=== PATIENT | female | born 1945 | race Caucasian/White ===

== ENCOUNTER 2019-06-09 14:58 | Observation (INO) ==
--- NOTE | 2019-06-09 15:17 | ERNOTE ---
GI Bleeding/Rectal Pain ER Presenting Symptoms: rectal bleeding Time Seen by Provider: 06/09/19 14:58 Source: residential records Exam Limitations: clinical condition Immunizations: IMMUNIZATION HX Immunizations Up to Date Yes Allergies/Adverse Reactions: Allergies No Known Allergies Allergy (Verified 06/09/19 15:01) Home Medications: HOME MEDICATIONS albuterol sulfate 90 mcg/actuation aerosol inhaler 2 inh IH Q4H PRN 10/31/18 [Last Taken Unknown] ascorbic acid (vitamin C) 500 mg tablet 500 mg FEEDING TUBE BID 05/13/19 [Last Taken Unknown] aspirin 81 mg tablet,delayed release 81 mg FEEDING TUBE DAILY 05/13/19 [Last Taken Unknown] atorvastatin 40 mg tablet 40 mg FEEDING TUBE DAILY 05/13/19 [Last Taken Unknown] carvedilol 3.125 mg tablet 3.125 mg FEEDING TUBE BID 05/13/19 [Last Taken Unknown] clindamycin HCl 150 mg capsule 600 mg FEEDING TUBE BID cap 05/13/19 [Last Taken Unknown] diltiazem HCl 240 mg capsule,extended release 24 hr 240 mg PO DAILY 05/13/19 [Last Taken Unknown] folic acid 1 mg tablet 1 mg FEEDING TUBE DAILY 05/13/19 [Last Taken Unknown] lactose-reduced food with fibr 0.06 gram-1.2 kcal/mL oral liquid 0.06 ea FEEDING TUBE DAILY 05/13/19 [Last Taken Unknown] levothyroxine 25 mcg tablet 25 mcg FEEDING TUBE DAILY 05/13/19 [Last Taken Unknown] morphine 15 mg immediate release tablet 15 mg PO Q8H PRN 05/13/19 [Last Taken Unknown] nystatin 100,000 unit/gram topical cream 1 applic TP BID 05/13/19 [Last Taken Unknown] omeprazole magnesium 2.5 mg oral suspension,delayed release 10 mg PO DAILY 05/13/19 [Last Taken Unknown] senna-docusate sodium 2 tab PO BID PRN tab 05/13/19 [Last Taken Unknown] warfarin 3 mg tablet 3 mg FEEDING TUBE DAILY tab 05/13/19 [Last Taken Unknown] Narrative: Patient resides at the care center and is not communicating due to multiple strokes. 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 Onset Date: ~05/14/19 Dry eye syndrome of both lacrimal glands Onset Date: ~04/18/19 History of transient ischemic attack and cerebral infarction Onset Date: ~11/01/18 Hypertension, essential Onset Date: ~11/01/18 Hypertensive retinopathy of both eyes Onset Date: ~04/18/19 Hypothyroidism Onset Date: ~11/01/18 Morbid (severe) obesity due to excess calories Onset Date: ~11/19/18 Muscle wasting and atrophy, not elsewhere classified, multiple sites Onset Date: ~04/18/19 Non-pressure chronic ulcer of right lower leg with fat layer exposed Onset Date: Unknown Oral phase dysphagia Onset Date: ~05/14/19 Peripheral venous insufficiency Onset Date: ~11/01/18 Pulmonary embolism Onset Date: ~11/01/18 Pure hypercholesterolemia Onset Date: ~11/01/18 Sepsis Onset Date: Unknown 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) Onset Date: 04/18/19 Stasis ulcer of lower extremity Onset Date: Unknown Unspecified asthma, uncomplicated Onset Date: ~11/01/18 Weakness Onset Date: ~05/14/19 Anemia Onset Date: Unknown Asthma Onset Date: Unknown Atrial fibrillation and flutter Onset Date: Unknown CVA (cerebral vascular accident) Onset Date: Unknown HTN (hypertension) Onset Date: Unknown History of pulmonary embolus (PE) Onset Date: Unknown Hypothyroidism (acquired) Onset Date: Unknown Lymphedema of leg Onset Date: Unknown Morbid obesity with BMI of 50.0-59.9, adult Onset Date: Unknown Rheumatoid arthritis Onset Date: Unknown Venous insufficiency (chronic) (peripheral) Onset Date: Unknown BPPV (benign paroxysmal positional vertigo) Onset Date: Unknown Cellulitis Onset Date: Unknown right leg Dysuria Onset Date: Unknown H/O hyperkalemia Onset Date: Unknown History of CVA (cerebrovascular accident) Onset Date: Unknown Hypercholesteremia Onset Date: Unknown Surgical History: Surgical History (Last Reviewed 06/09/19 @ 20:06 by Kelly Dong MD) Gastrostomy status Onset Date: ~04/18/19 History of incision and drainage Onset Date: ~09/17/18 right thigh mass Family History: Family History (Last Reviewed 06/09/19 @ 17:48 by Aida Quiroga, RN) Mother Coronary artery disease Father Diabetes Sister Cancer breast Coronary artery disease Social History: (Last Reviewed 06/09/19 @ 17:48 by Aida Quiroga, RN) Social History: current occupational status: retired Service: No Tobacco: Smoking Status: Former smoker Alcohol: alcohol intake: never Substance Use: substance use type: does not use Dietary Habits: caffeine: Yes Physical Exam - Physical Exam General Appearance: Present: wd/wn, alert, no apparent distress, obese Head Exam: Present: normal inspection Respiratory: Present: no respiratory distress, no accessory muscle use, lungs clear Cardiovascular/Chest: Present: regular rate, rhythm, no murmur, normal peripheral pulses Gastrointestinal/Abdominal: Present: normal bowel sounds, nontender, nondistended, soft Rectal Exam: Present: nontender, normal rectal tone, other - miller stool Back Exam: Present: other - lower back beginning decubitus ulcers Extremity Exam: Present: no edema Neurological Exam: Present: alert, oriented, normal mood/affect Skin Exam: Present: normal color, warm/dry Progress - Results and Orders Patient's Lab Results:: I have reviewed the patient's lab results. - Vital Signs Patient's Vital Signs:: I have reviewed the patient's vital signs. Vital Signs: Vital Signs 06/09/19 14:58 Temperature 36.5 C Pulse Rate 65 Respiratory Rate 19 - Progress/Reassessment Chief Complaint: GI Bleed Progress Note-Subjective: 06/09/19 16:23 discussed with family, vitals and Hb stable recommended admission for observation, family agreed reports that patient was community dwelling until just before , was in [facility] for about a month for CVA and encephalitis, discharged to care center end of 06/09/19 16:[address] Hardy, will see patient, admit to medicine 06/09/19 16:[address] Del Rosario, okay to admit for observation Departure Clinical Impression: Lower GI bleed - Departure Disposition: Still a patient Condition: Stable
[2019-06-09 15:30] LABS: Hematocrit 41.5 % (37.0-47.0); Hemoglobin 13.3 gm/dL (12.5-16.0); Mean Cell Volume 102.7 fl (78-100); Mean Corpuscular Hemoglobin 32.9 pg (27-31); Mean Platelet Volume 13.5 fl (8-12.5); Neutrophil # 2.6 K/mm3 (1.3-6.0); Platelet Count 190 K/mm3 (150-450); Red Blood Count 4.04 M/mm3 (4.2-5.4); Red Cell Distribution Width 14.7 % (11.5-14.0); White Blood Count 7.7 K/mm3 (4.0-10.5)
[2019-06-09 15:47] LABS: Anion Gap 11.6 mmol/L (6.8-13.8); BUN/Creatinine Ratio 28.9 (9.0-21.6); Bilirubin, Total 0.3 mg/dL (0.0-1.1); Ca. Corrected For Albumin 10.3 mg/dL (8.4-10.2); Carbon Dioxide 28.2 mmol/L (24-32.6); Potassium 4.8 mmol/L (3.4-4.6); Total Protein 8.8 gm/dL (6.2-8.2)
[2019-06-09 15:48] LABS: INR 3.94 INR (0.92-1.08); Partial Thrombolplastin Time 40.1 Seconds (24-32)
[2019-06-09 17:29] LABS: Hematocrit 39.7 % (37.0-47.0); Hemoglobin 12.9 gm/dL (12.5-16.0)
--- NOTE | 2019-06-09 18:25 | CONS ---
HPI - General Date of Service: 06/09/19 Source: RN/MD, RN notes reviewed, old records Exam Limitations: clinical condition - History of Present Illness Timing/Duration: 24 hours - [facility] staff noted yesterday Associated Symptoms: other - patient is unable to converse meaningfully Allergies/Adverse Reactions: Allergies No Known Allergies Allergy (Verified 06/09/19 15:01) Home Medications: Home Medications Medication Instructions Recorded Last Taken albuterol sulfate 90 mcg/actuation 2 inh IH Q4H PRN 10/31/18 Unknown aerosol inhaler ascorbic acid (vitamin C) 500 mg 500 mg FEEDING TUBE BID 05/13/19 Unknown tablet aspirin 81 mg tablet,delayed 81 mg FEEDING TUBE DAILY 05/13/19 Unknown release atorvastatin 40 mg tablet 40 mg FEEDING TUBE DAILY 05/13/19 Unknown carvedilol 3.125 mg tablet 3.125 mg FEEDING TUBE BID 05/13/19 Unknown diltiazem HCl 240 mg 240 mg PO DAILY 05/13/19 Unknown capsule,extended release 24 hr folic acid 1 mg tablet 1 mg FEEDING TUBE DAILY 05/13/19 Unknown lactose-reduced food with fibr 0.06 ea FEEDING TUBE DAILY 05/13/19 Unknown 0.06 gram-1.2 kcal/mL oral liquid levothyroxine 25 mcg tablet 25 mcg FEEDING TUBE DAILY 05/13/19 Unknown morphine 15 mg immediate release 15 mg PO Q8H PRN 05/13/19 Unknown tablet nystatin 100,000 unit/gram topical 1 applic TP BID 05/13/19 Unknown cream omeprazole magnesium 2.5 mg oral 10 mg PO DAILY 05/13/19 Unknown suspension,delayed release senna-docusate sodium 2 tab PO BID PRN tab 05/13/19 Unknown warfarin 3 mg tablet 3 mg FEEDING TUBE DAILY tab 05/13/19 Unknown Acetaminophen [Tylenol] 325 mg PEG QID PRN 06/09/19 Unknown Review of Systems - Review of Systems Narrative: Cannot obtain meaningful ROS from the patient Physical Examination - Exam Vital Signs: Vital Signs - Last Taken Temp 36.6 C 06/09/19 16:53 Pulse 62 06/09/19 16:53 Resp 12 06/09/19 16:53 BP 144/57 06/09/19 16:53 Pulse Ox 94 06/09/19 16:53 O2 Oxygen Delivery Method Room Air Comprehensive Narative: 06/09/19 18:26 Eyes are closed. Opens eyes when hand is touched. Responses are not coherent Constitutional: Present: Somnolent, Morbidly obese. Absent: Oriented x3 ENT Exam: Present: normal ENT inspection Respiratory: Present: no respiratory distress Cardiovascular/Chest: Present: regular rate, rhythm Abdomen: Present: Normal bowel sounds, soft, obese. Absent: guarding, rigidity, rebound tenderness /Rectal: Present: Other - maroon stool noted by ERP---normal tone, no masses Extremity: Present: other - no spontaneous movement Skin Exam: Present: warm/dry Neurologic: Present: disoriented x 3 Appearance: Present: other - eyes closed unless stimulated, opens briefly and attempts speech Eye contact: Present: other - makes eye contact Thoughts: Present: other - cannot assess - Results and Findings: Lab/Microbiology results last 24 hrs: Abnormal/Pending Laboratory Last 24 HRS 06/09/19 06/09/19 06/09/19 15:15 15:15 15:15 RBC 4.04 L MCV 102.7 H MCH 32.9 H RDW 14.7 H MPV 13.5 H Neutrophils % 34.0 L Lymphocytes % 52.7 H Eosinophils % 5.6 H Lymphocytes # 4.06 H PT 37.0 H INR (Anticoag Therapy) 3.94 H PTT ([place]) 40.1 H Potassium 4.8 H BUN 26 H BUN/Creatinine Ratio 28.9 H Random Glucose 192 H Calcium Adj for Albumin 10.3 H AST 56 H Total Protein 8.8 H Albumin 2.0 L Stool Occult Blood 06/09/19 13:45 RBC MCV MCH RDW MPV Neutrophils % Lymphocytes % Eosinophils % Lymphocytes # PT INR (Anticoag Therapy) PTT (Jay Jay) Potassium BUN BUN/Creatinine Ratio Random Glucose Calcium Adj for Albumin AST Total Protein Albumin Stool Occult Blood Positive H - Assessments/Findings (1) Lower GI bleed Diagnosis(s): Hgb 13.3 and 12.9 VS normal Her INR is elevated, plt's normal Most likely source is lower GI, perhaps diverticular bleeding. Do not have prior imaging to know if she has diverticular disease and prior colonoscopy status is unknown. Given her baseline status, would certainly treat conservatively--serial Hgb/Hct, allow INR to reduce--prior to even considering endoscopy, as she is not a candidate for any surgical intervention.. The stomach contents could be checked for gross blood by aspirating PEG tube when accessed next Discussed with Dr Del Rosario. ADDENDUM: 06/10/19 8:25AM Her Hgb has stayed stable Laboratory Tests 06/09/19 06/09/19 06/09/19 15:15 17:24 22:00 Hgb 13.3 12.9 12.3 L 06/10/19 05:20 Hgb 12.3 L Whether to pursue this or not will depend upon family wishes Contact me for any questions. Problem: Acute
[2019-06-09] MEDS ORDERED: ALBUTEROL SULFATE 200 PUFF INHALER IH PRN (19:47)
--- NOTE | 2019-06-09 19:55 | HP ---
Chief Complaint - Chief Complaint Date of Service: 06/09/19 Time of Service: 19:33 Chief Complaint: bloody stools History of Present Illness: Patient is a resident of the [facility] due to having several previous strokes. She is unable to contribute to her history and no family members are present. History obtained from ERP and chart review. She has a past medical history of A. fib on Coumadin, today's INR was 3.94. She also has a history of dementia and is morbidly obese. Staff at the [facility] has noticed dark stools and sent her to the ER for evaluation. Hemoglobin in the ER was 13.3, and 12.9 two hours later. They were unable to do serial H&H testing at the [facility], so she is admitted here for monitoring. Surgery was also consulted. She has no abnormal vital signs. 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 Onset Date: ~05/14/19 Dry eye syndrome of both lacrimal glands Onset Date: ~04/18/19 History of transient ischemic attack and cerebral infarction Onset Date: ~11/01/18 Hypertension, essential Onset Date: ~11/01/18 Hypertensive retinopathy of both eyes Onset Date: ~04/18/19 Hypothyroidism Onset Date: ~11/01/18 Morbid (severe) obesity due to excess calories Onset Date: ~11/19/18 Muscle wasting and atrophy, not elsewhere classified, multiple sites Onset Date: ~04/18/19 Non-pressure chronic ulcer of right lower leg with fat layer exposed Onset Date: Unknown Oral phase dysphagia Onset Date: ~05/14/19 Peripheral venous insufficiency Onset Date: ~11/01/18 Pulmonary embolism Onset Date: ~11/01/18 Pure hypercholesterolemia Onset Date: ~11/01/18 Sepsis Onset Date: Unknown 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) Onset Date: 04/18/19 Stasis ulcer of lower extremity Onset Date: Unknown Unspecified asthma, uncomplicated Onset Date: ~11/01/18 Weakness Onset Date: ~05/14/19 Anemia Onset Date: Unknown Asthma Onset Date: Unknown Atrial fibrillation and flutter Onset Date: Unknown CVA (cerebral vascular accident) Onset Date: Unknown HTN (hypertension) Onset Date: Unknown History of pulmonary embolus (PE) Onset Date: Unknown Hypothyroidism (acquired) Onset Date: Unknown Lymphedema of leg Onset Date: Unknown Morbid obesity with BMI of 50.0-59.9, adult Onset Date: Unknown Rheumatoid arthritis Onset Date: Unknown Venous insufficiency (chronic) (peripheral) Onset Date: Unknown BPPV (benign paroxysmal positional vertigo) Onset Date: Unknown Cellulitis Onset Date: Unknown right leg Dysuria Onset Date: Unknown H/O hyperkalemia Onset Date: Unknown History of CVA (cerebrovascular accident) Onset Date: Unknown Hypercholesteremia Onset Date: Unknown Surgical History: Surgical History (Last Reviewed 06/09/19 @ 17:47 by Aida Quiroga RN) Gastrostomy status Onset Date: ~04/18/19 History of incision and drainage Onset Date: ~09/17/18 right thigh mass Family History: Family History (Last Reviewed 06/09/19 @ 17:48 by Aida Quiroga RN) Mother Coronary artery disease Father Diabetes Sister Cancer breast Coronary artery disease Social History: (Last Reviewed 06/09/19 @ 17:48 by Aida Quiroga RN) Social History: current occupational status: retired Service: No Tobacco: Smoking Status: Former smoker Alcohol: alcohol intake: never Substance Use: substance use type: does not use Dietary Habits: caffeine: Yes Review Of Systems (GEN) - Review of Systems Generalized/Overall Review: Present: No Symptoms Reported - Unable to obtain Immunizations: IMMUNIZATION HX Immunizations Up to Date Yes Allergies/Adverse Reactions: Allergies Allergy/AdvReac Type Severity Reaction Status Date / Time No Known Allergies Allergy Verified 06/09/19 15:01 Home Medications: HOME MEDICATIONS albuterol sulfate 90 mcg/actuation aerosol inhaler 2 inh IH Q4H PRN 10/31/18 [Last Taken Unknown] ascorbic acid (vitamin C) 500 mg tablet 500 mg FEEDING TUBE BID 05/13/19 [Last Taken Unknown] aspirin 81 mg tablet,delayed release 81 mg FEEDING TUBE DAILY 05/13/19 [Last Taken Unknown] atorvastatin 40 mg tablet 40 mg FEEDING TUBE DAILY 05/13/19 [Last Taken Unknown] carvedilol 3.125 mg tablet 3.125 mg FEEDING TUBE BID 05/13/19 [Last Taken Unknown] clindamycin HCl 150 mg capsule 600 mg FEEDING TUBE BID cap 05/13/19 [Last Taken Unknown] diltiazem HCl 240 mg capsule,extended release 24 hr 240 mg PO DAILY 05/13/19 [Last Taken Unknown] folic acid 1 mg tablet 1 mg FEEDING TUBE DAILY 05/13/19 [Last Taken Unknown] lactose-reduced food with fibr 0.06 gram-1.2 kcal/mL oral liquid 0.06 ea FEEDING TUBE DAILY 05/13/19 [Last Taken Unknown] levothyroxine 25 mcg tablet 25 mcg FEEDING TUBE DAILY 05/13/19 [Last Taken Unknown] morphine 15 mg immediate release tablet 15 mg PO Q8H PRN 05/13/19 [Last Taken Unknown] nystatin 100,000 unit/gram topical cream 1 applic TP BID 05/13/19 [Last Taken Unknown] omeprazole magnesium 2.5 mg oral suspension,delayed release 10 mg PO DAILY 05/13/19 [Last Taken Unknown] senna-docusate sodium 2 tab PO BID PRN tab 05/13/19 [Last Taken Unknown] warfarin 3 mg tablet 3 mg FEEDING TUBE DAILY tab 05/13/19 [Last Taken Unknown] Exam - Exam Vital Signs: Vital Signs - Last Taken Temp 36.6 C 06/09/19 16:53 Pulse 62 06/09/19 16:53 Resp 12 06/09/19 16:53 BP 144/57 06/09/19 16:53 Pulse Ox 94 06/09/19 16:53 Constitutional: Present: Alert, Morbidly obese Respiratory: Present: normal breath sounds - Anterior exam only, no respiratory distress Cardiovascular/Chest: Present: regular rate, rhythm Abdomen: Present: soft, nontender - J-tube in place with tube feeds running Extremity: Absent: lower extremity edema Eye contact: Present: good eye contact, other - Mostly unintelligible speech, but is able to respond "yes" when asked if she is warm enough Diagnostic Studies: Abnormal Lab Results 06/09/19 06/09/19 06/09/19 Range/Units 13:45 15:15 15:15 RBC 4.04 L (4.2-5.4) M/mm3 MCV 102.7 H (78-100) fl MCH 32.9 H (27-31) pg RDW 14.7 H (11.5-14.0) % MPV 13.5 H (8-12.5) fl Neutrophils % 34.0 L (42-75.0) % Lymphocytes % 52.7 H (20-51) % Eosinophils % 5.6 H (0.0-3.0) % Lymphocytes # 4.06 H (1.5-3.5) k/mm3 PT 37.0 H (9.1-10.7) Seconds INR (Anticoag Therapy) 3.94 H (0.92-1.08) INR PTT (Jay Jay) 40.1 H (24-32) Seconds Potassium (3.4-4.6) mmol/L BUN (3-23) mg/dL BUN/Creatinine Ratio (9.0-21.6) Random Glucose (70-110) mg/dL Calcium Adj for Albumin (8.4-10.2) mg/dL AST (0-48) U/L Total Protein (6.2-8.2) gm/dL Albumin (3.4-5.0) gm/dl Stool Occult Blood Positive H 06/09/19 Range/Units 15:15 RBC (4.2-5.4) M/mm3 MCV (78-100) fl MCH (27-31) pg RDW (11.5-14.0) % MPV (8-12.5) fl Neutrophils % (42-75.0) % Lymphocytes % (20-51) % Eosinophils % (0.0-3.0) % Lymphocytes # (1.5-3.5) k/mm3 PT (9.1-10.7) Seconds INR (Anticoag Therapy) (0.92-1.08) INR PTT ([place]) (24-32) Seconds Potassium 4.8 H (3.4-4.6) mmol/L BUN 26 H (3-23) mg/dL BUN/Creatinine Ratio 28.9 H (9.0-21.6) Random Glucose 192 H (70-110) mg/dL Calcium Adj for Albumin 10.3 H (8.4-10.2) mg/dL AST 56 H (0-48) U/L Total Protein 8.8 H (6.2-8.2) gm/dL Albumin 2.0 L (3.4-5.0) gm/dl Stool Occult Blood Laboratory Results WBC 7.7 K/mm3 (4.0-10.5) 06/09/19 15:15 RBC 4.04 M/mm3 (4.2-5.4) L 06/09/19 15:15 Hgb 12.9 gm/dL (12.5-16.0) 06/09/19 17:24 Hct 39.7 % (37.0-47.0) 06/09/19 17:24 MCV 102.7 fl (78-100) H 06/09/19 15:15 MCH 32.9 pg (27-31) H 06/09/19 15:15 MCHC 32.0 g/dl (32-36) 06/09/19 15:15 RDW 14.7 % (11.5-14.0) H 06/09/19 15:15 Plt Count 190 K/mm3 (150-450) 06/09/19 15:15 MPV 13.5 fl (8-12.5) H 06/09/19 15:15 Immature Gran % (Auto) 0.30 % (0.001-0.429) 06/09/19 15:15 Immature Gran # (Auto) 0.02 K/mm3 (0.000-0.0310) 06/09/19 15:15 Neutrophils % 34.0 % (42-75.0) L 06/09/19 15:15 Lymphocytes % 52.7 % (20-51) H 06/09/19 15:15 Monocytes % 6.9 % (0.0-9) 06/09/19 15:15 Eosinophils % 5.6 % (0.0-3.0) H 06/09/19 15:15 Basophils % 0.5 % (0.0-1.0) 06/09/19 15:15 Nucleated RBC % 0.0 k/mm3 (0-1) 06/09/19 15:15 Neutrophils # 2.6 K/mm3 (1.3-6.0) 06/09/19 15:15 Lymphocytes # 4.06 k/mm3 (1.5-3.5) H 06/09/19 15:15 Monocytes # 0.5 k/mm3 (0.0-1.0) 06/09/19 15:15 Eosinophils # 0.4 k/mm3 (0.0-0.7) 06/09/19 15:15 Absolute Basophils 0.0 k/mm3 (0.0-0.1) 06/09/19 15:15 PT 37.0 Seconds (9.1-10.7) H 06/09/19 15:15 INR (Anticoag Therapy) 3.94 INR (0.92-1.08) H 06/09/19 15:15 PTT (Jay Jay) 40.1 Seconds (24-32) H 06/09/19 15:15 Sodium 140 mmol/L (132-142) 06/09/19 15:15 Plasma Sodium 141 mmol/L (130-142) 06/09/19 15:15 Potassium 4.8 mmol/L (3.4-4.6) H 06/09/19 15:15 Chloride 105 mmol/L (97-106) 06/09/19 15:15 Carbon Dioxide 28.2 mmol/L (24-32.6) 06/09/19 15:15 Anion Gap 11.6 mmol/L (6.8-13.8) 06/09/19 15:15 BUN 26 mg/dL (3-23) H 06/09/19 15:15 Creatinine 0.90 mg/dL (0.4-1.4) 06/09/19 15:15 Est GFR (Non-Af Amer) 65 mL/min (60-130) 06/09/19 15:15 BUN/Creatinine Ratio 28.9 (9.0-21.6) H 06/09/19 15:15 Random Glucose 192 mg/dL (70-110) H 06/09/19 15:15 Calcium 9.0 mg/dL (7.9-10.9) 06/09/19 15:15 Calcium Adj for Albumin 10.3 mg/dL (8.4-10.2) H 06/09/19 15:15 Total Bilirubin 0.3 mg/dL (0.0-1.1) 06/09/19 15:15 AST 56 U/L (0-48) H 06/09/19 15:15 ALT 48 U/L (19-67) 06/09/19 15:15 Alkaline Phosphatase 106 U/L (50-170) 06/09/19 15:15 Total Protein 8.8 gm/dL (6.2-8.2) H 06/09/19 15:15 Albumin 2.0 gm/dl (3.4-5.0) L 06/09/19 15:15 Stool Occult Blood Positive H 06/09/19 13:45 Blood Type B Positive 06/09/19 15:15 Antibody Screen Negative 06/09/19 15:15 Assessment/Plan - Assessment/Plan (1) Lower GI bleed Assessment: ERP rectal exam was positive for maroon-colored stool. Her initial hemoglobin was 13.3, followed by a hemoglobin of 12.92 hours later, which is essentially unchanged. Will check another hemoglobin tonight and in the morning. If she does not significantly decrease, will transfer back to the [facility] tomorrow. Problem: Acute (2) Supratherapeutic INR Assessment: Today's INR was 3.94. We will hold 2 doses, and can recheck INR on 06/10. Problem: Acute (3) Atrial fibrillation Assessment: She is prescribed carvedilol and diltiazem, and will continue. Problem: Chronic Qualifiers: Atrial fibrillation type: longstanding persistent Qualified Code(s): I48.11 - Longstanding persistent atrial fibrillation (4) Status post CVA Assessment: Her home tube feeding solution was brought with her, and will continue. If her hemoglobin was to drop or her bleeding to worsen, we will stop the tube feeds and keep her n.p.o. Problem: Chronic (5) Vascular dementia Assessment: Recommend code discussions be held with family as she is currently full code. Problem: Chronic Qualifiers: Dementia behavioral disturbance: without behavioral disturbance Qualified Code(s): F01.50 - Vascular dementia without behavioral disturbance (6) Morbid obesity Problem: Chronic
[2019-06-09] MEDS ORDERED: MORPHINE SULFATE 15 MG TABLET.SA PO PRN (19:57)
[2019-06-09] MEDS ORDERED: SENNOSIDES/DOCUSATE SODIUM 1 TAB TABLET PO PRN (20:00)
[2019-06-09] MEDS: CARVEDILOL 3.125 MG TABLET PEG SCH (21:20)
[2019-06-09] MEDS: NYSTATIN 30 APPL TUBE TP SCH (21:20)
[2019-06-09 22:02] LABS: Hematocrit 38.7 % (37.0-47.0); Hemoglobin 12.3 gm/dL (12.5-16.0)
[2019-06-10 05:25] LABS: Hematocrit 38.3 % (37.0-47.0); Hemoglobin 12.3 gm/dL (12.5-16.0)
[2019-06-10] MEDS ORDERED: ALBUTEROL SULFATE 2.5 MG/0.5 ML VIAL.NEB IH PRN (06:16)
[2019-06-10 09:24] LABS: Prothrombin Time (Patient) 31.4 Seconds (9.1-10.7)
[2019-06-10 09:27] LABS: INR 3.32 INR (0.92-1.08)
[2019-06-10] MEDS: NYSTATIN 30 APPL TUBE TP SCH ×2 (09:40→20:33)
[2019-06-10] MEDS: CARVEDILOL 3.125 MG TABLET PEG SCH ×2 (09:40→20:31)
[2019-06-10] MEDS: DILTIAZEM HCL 240 MG CAP.SR.24H PO SCH (09:40)
[2019-06-10] MEDS: OMEPRAZOLE 2 MG/ML BTL PEG SCH (09:40)
--- NOTE | 2019-06-10 17:03 | PN ---
Subjective - Date and Time Seen Date: 06/10/19 Time: 12:00 Subjective Narrative: seems clinically stable. vitals stable. hgb stable with yesterday. inr slowly coming down. nurses wonder if some of the bleeding, br red blood, is coming from the vagina, not the bowel. nurses wonder if they should resume iv and/or PEG tube feedings. hx of a fib, pulmonary emboli and nonhemorrhagic stroke. Objective - Review of Systems Generalized/Overall Review: Reports: No Symptoms Reported - patient has chronic dementia and unable to provide any history. family is present, and we handled all of their concerns today. neither they or her nurse feel she has been uncomfortable. - Vitals Vitals: Last Vital Signs Temp 36.7 C 06/10/19 14:33 Pulse 64 06/10/19 14:33 Resp 18 06/10/19 14:33 BP 181/77 H 06/10/19 14:33 Pulse Ox 98 06/10/19 14:33 vital stable. bp noted to be slightly high. will continue to follow. - Abnormal Lab Findings Abnormal Lab Findings: Abnormal Lab Results 06/09/19 06/10/19 06/10/19 Range/Units 22:00 05:20 05:22 Hgb 12.3 L 12.3 L (12.5-16.0) gm/dL PT 31.4 H (9.1-10.7) Seconds INR (Anticoag Therapy) 3.32 H (0.92-1.08) INR hgb stable. inr coming down. will check hemogram, inr and bmp tomorrow. - Exam Constitutional: Present: Alert, Cooperative, Well developed, No distress, Elderly, Obese. Absent: Oriented x3 ENT Exam: Present: normal ENT inspection, hearing grossly normal Neck: Present: normal inspection. Absent: lymphadenopathy (R), lymphadenopathy (L), thyromegaly Breasts: Present: Exam deferred Respiratory: Present: lungs clear, no respiratory distress Cardiovascular/Chest: Present: no edema, no gallop, no JVD, no murmur, irregularly irregular Abdomen: Present: Normal bowel sounds, soft, nontender, nondistended, no hepatospenomegaly, no masses, obese /Rectal: Present: Exam deferred Extremity: Present: no calf tenderness, normal capillary refill Skin Exam: Present: normal color, warm/dry, no cyanosis Lymphatic: Present: no adenopathy Neurologic: Present: dizzy/light-headedness, other - says very little Appearance: Present: appropriate appearance. Absent: appropriate insight, impaired insight, impaired recent memory, impaired remote memory Eye contact: Present: cooperative, good eye contact. Absent: normal speech Thoughts: Present: normal thought pattern Assessment/Plan - Problems/Diagnosis (1) Acute blood loss anemia Problem: Acute Narrative: seems stablized. will check again tomorrow. (2) Lower GI bleed Problem: Acute Narrative: question about vaginal bleeding. will insert tampon to find out. if stable, back to [place] tomorrow. no coumadin for the time being. may restart peg tube feeds, jevity 1.2, 60 ml per hour continuous. (3) Supratherapeutic INR Problem: Acute Narrative: improving. will monitor. (4) Atrial fibrillation Problem: Chronic Qualifiers: Atrial fibrillation type: longstanding persistent Qualified Code(s): I48.11 - Longstanding persistent atrial fibrillation (5) Cerebral infarction Problem: Chronic Qualifiers: Cerebral infarction mechanism: embolism Precerebral and cerebral artery: unspecified precerebral artery Qualified Code(s): I63.10 - Cerebral infarction due to embolism of unspecified precerebral artery (6) Pulmonary embolism Problem: Chronic Qualifiers: Pulmonary embolism type: unspecified Chronicity: unspecified Acute cor pulmonale presence: without acute cor pulmonale Qualified Code(s): I26.99 - Other pulmonary embolism without acute cor pulmonale
[2019-06-11 06:27] LABS: Hematocrit 36.4 % (37.0-47.0); Hemoglobin 11.7 gm/dL (12.5-16.0); Mean Cell Volume 103.4 fl (78-100); Mean Corpuscular Hemoglobin 33.2 pg (27-31); Mean Corpuscular Hgb Conc 32.1 g/dl (32-36); Mean Platelet Volume 13.3 fl (8-12.5); Platelet Count 174 K/mm3 (150-450); Red Blood Count 3.52 M/mm3 (4.2-5.4); White Blood Count 7.5 K/mm3 (4.0-10.5)
[2019-06-11 06:49] LABS: Anion Gap 8.9 mmol/L (6.8-13.8); BUN/Creatinine Ratio 28.4 (9.0-21.6); Calcium * 8.6 mg/dL (7.9-10.9); Carbon Dioxide 29.6 mmol/L (24-32.6); Estimated Creat Clear 48.9; Potassium 4.5 mmol/L (3.4-4.6)
[2019-06-11 06:50] LABS: Prothrombin Time (Patient) 23.7 Seconds (9.1-10.7)
[2019-06-11 06:51] LABS: INR 2.48 INR (0.92-1.08)
[2019-06-11] MEDS: CARVEDILOL 3.125 MG TABLET PEG SCH (08:42)
[2019-06-11] MEDS: DILTIAZEM HCL 240 MG CAP.SR.24H PO SCH (08:42)
[2019-06-11] MEDS: NYSTATIN 30 APPL TUBE TP SCH (08:42)
--- NOTE | 2019-06-11 09:16 | DS ---
Date of Discharge:: 06/11/19 Hospital Course: 73-year-old female with a past medical history of hypertension, hypothyroidism, CVA, atrial fibrillation, dementia, asthma, anemia, morbid obesity, lymphedema of leg presents from [facility] with a GI bleed. Hemoglobin and hematocrit remained stable during admission. General surgery was consulted and they did not want to perform any colonoscopy or endoscopy at this time. Patient is stable and at her baseline. She will be transferred back to [facility] today. No changes to her medications. She will follow-up with her primary care physician within 1 to 2 weeks of discharge. I will hold her Coumadin and repeat her INR and CBC in 2 days. Procedures Performed: none Results and Findings: Lab Pending Results 06/09/19 13:45: Stool Occult Blood Positive H 06/09/19 15:15: WBC 7.7, RBC 4.04 L, Hgb 13.3, Hct 41.5, MCV 102.7 H, MCH 32.9 H, MCHC 32.0, RDW 14.7 H, Plt Count 190, MPV 13.5 H, Immature Gran % (Auto) 0.30, Immature Gran # (Auto) 0.02, Neutrophils % 34.0 L, Lymphocytes % 52.7 H, Monocytes % 6.9, Eosinophils % 5.6 H, Basophils % 0.5, Nucleated RBC % 0.0, Neutrophils # 2.6, Lymphocytes # 4.06 H, Monocytes # 0.5, Eosinophils # 0.4, Ab solute Basophils 0.0 06/09/19 15:15: PT 37.0 H, INR (Anticoag Therapy) 3.94 H, PTT ([place]) 40.1 H 06/09/19 15:15: Sodium 140, Plasma Sodium 141, Potassium 4.8 H, Chloride 105, Carbon Dioxide 28.2, Anion Gap 11.6, BUN 26 H, Creatinine 0.90, Est GFR (Non-Af Amer) 65, BUN/Creatinine Ratio 28.9 H, Random Glucose 192 H, Calcium 9.0, Calcium Adj for Albumin 10.3 H, Total Bilirubin 0.3, AST 56 H, ALT 48, Alkaline Phosphatase 106, Total Protein 8.8 H, Albumin 2.0 L 06/09/19 15:15: Blood Type B Positive, Antibody Screen Negative 06/09/19 17:24: Hgb 12.9, Hct 39.7 06/09/19 22:00: Hgb 12.3 L, Hct 38.7 06/10/19 05:20: Hgb 12.3 L, Hct 38.3 06/10/19 05:22: PT 31.4 H, INR (Anticoag Therapy) 3.32 H 06/11/19 06:20: WBC 7.5, RBC 3.52 L, Hgb 11.7 L, Hct 36.4 L, MCV 103.4 H, MCH 33.2 H, MCHC 32.1, RDW 15.0 H, Plt Count 174, MPV 13.3 H 06/11/19 06:20: Sodium 140, Plasma Sodium 141, Potassium 4.5, Chloride 106, Carbon Dioxide 29.6, Anion Gap 8.9, BUN 27 H, Creatinine 0.95, Est GFR (Non-Af Amer) 61, BUN/Creatinine Ratio 28.4 H, Random Glucose 180 H, Calcium 8.6 06/11/19 06:20: PT 23.7 H, INR (Anticoag Therapy) 2.48 H Discharge Location: [facility] Disposition: [facility] Condition: Stable Level of Care: SNF Discharge Activity: Other - Abdifatah lift Discharge Diet: Other - Tube feeds, continue as she was taking at the [facility] Referrals: Duarte Metcalf MD [Primary Care Provider] - Additional Patient Instructions (free text): I will hold her Coumadin and repeat her INR and CBC in 2 days. Complete Home Medications List: Complete Home Medication List: albuterol sulfate 90 mcg/actuation aerosol inhaler 2 inh IH Q4H PRN 10/31/18 ascorbic acid (vitamin C) 500 mg tablet 500 mg FEEDING TUBE BID 05/13/19 aspirin 81 mg tablet,delayed release 81 mg FEEDING TUBE DAILY 05/13/19 atorvastatin 40 mg tablet 40 mg FEEDING TUBE DAILY 05/13/19 carvedilol 3.125 mg tablet 3.125 mg FEEDING TUBE BID 05/13/19 diltiazem HCl 240 mg capsule,extended release 24 hr 240 mg PO DAILY 05/13/19 folic acid 1 mg tablet 1 mg FEEDING TUBE DAILY 05/13/19 lactose-reduced food with fibr 0.06 gram-1.2 kcal/mL oral liquid 0.06 ea FEEDING TUBE DAILY 05/13/19 levothyroxine 25 mcg tablet 25 mcg FEEDING TUBE DAILY 05/13/19 morphine 15 mg immediate release tablet 15 mg PO Q8H PRN 05/13/19 nystatin 100,000 unit/gram topical cream 1 applic TP BID 05/13/19 omeprazole magnesium 2.5 mg oral suspension,delayed release 10 mg PO DAILY 05/13/19 senna-docusate sodium 2 tab PO BID PRN tab 05/13/19 Acetaminophen [Tylenol] 325 mg PEG QID PRN 06/09/19
[2019-06-11] MEDS: OMEPRAZOLE 2 MG/ML BTL PEG SCH (09:47)
[2019-06-11 11:56] VITALS: BP 111/48
== END 2019-06-11 11:35 ==
LOC: ER 14:58 → MS 14:58
PROVIDERS: ADMIT Family Medicine; ATTEND Allergy & Immunology
DX: R79.1 Abnormal coagulation profile; I48.20 Chronic atrial fibrillation, unspecified; K92.2 Gastrointestinal hemorrhage, unspecified; D62 Acute posthemorrhagic anemia; I63.9 Cerebral infarction, unspecified; I27.82 Chronic pulmonary embolism
CPT/HCPCS: 36415; 80048; 80053; 82272; 85014; 85018; 85025; 85027; 85610; 85730; 86850; 87081; 99284; 99285; G0378

== ENCOUNTER 2019-09-14 10:45 | Inpatient (IN) ==
[2019-09-14] MEDS ORDERED: NALOXONE HCL 1 MG/1 ML SYRG IV ONE ×2 (11:01→14:49)
--- NOTE | 2019-09-14 11:06 | ERNOTE ---
Medical Problem HPI - General Chief Complaint: Altered Mental Status Time Seen by Provider: 09/14/19 10:45 Source: [facility] records Exam Limitations: clinical condition - Immun/Allergies/Home Medications Immunizations: IMMUNIZATION HX Immunizations Up to Date Yes History of Influenza Vaccine Yes Hx Pneumococcal Vaccination Yes Allergies/Adverse Reactions: Allergies No Known Allergies Allergy (Verified 09/14/19 14:12) Home Medications: HOME MEDICATIONS albuterol sulfate 90 mcg/actuation aerosol inhaler 2 inh IH Q4H PRN 10/31/18 [Last Taken Unknown] aspirin 81 mg tablet,delayed release 81 mg PEG DAILY 05/13/19 [Last Taken Unknown] atorvastatin 40 mg tablet 40 mg PEG DAILY 05/13/19 [Last Taken Unknown] carvedilol 3.125 mg tablet 3.125 mg FEEDING TUBE BID 05/13/19 [Last Taken Unknown] diltiazem HCl 240 mg capsule,extended release 24 hr 240 mg PEG DAILY 05/13/19 [Last Taken Unknown] folic acid 1 mg tablet 1 mg PEG DAILY 05/13/19 [Last Taken Unknown] omeprazole magnesium 2.5 mg oral suspension,delayed release 10 mg PO DAILY 05/13/19 [Last Taken Unknown] senna-docusate sodium 2 each PEG BID PRN #0 tab 05/13/19 [Last Taken Unknown] Acetaminophen [Tylenol] 325 mg PEG QID PRN 06/09/19 [Last Taken Unknown] morphine 15 mg immediate release tablet 15 mg PO Q8H PRN #60 tab 06/13/19 [Last Taken Unknown] cyanocobalamin (vitamin B-12) 1,000 mcg/mL oral drops 1 ml PO DAILY #60 ml 06/26/19 [Last Taken Unknown] amoxicillin 400 mg/5 mL oral suspension 500 mg FEEDING TUBE BID 10 Days #125 ml 09/12/19 [Last Taken Unknown] Apixaban [Eliquis] 5 mg PEG BID 09/14/19 [Last Taken Unknown] Lactose-Reduced Food/Fiber [Jevity 1.2 Cody Liquid] 65 ml PO DAILY 09/14/19 [Last Taken Unknown] Levothyroxine Sodium [Synthroid] 50 mcg PEG DAILY 09/14/19 [Last Taken Unknown] Lorazepam 0.5 mg PO Q4H 09/14/19 [Last Taken Unknown] Whey Protein/Arginine/C/E/Zinc [Arginaid Extra Liquid] 237 ml PEG DAILY 09/14/19 [Last Taken Unknown] - History of Present History Narrative: Patient is coming from [facility] for decreased responsiveness. The nursing staff reports that she has been having issues with her teeth and had some pulled recently due to infection and is on antibiotics, she is scheduled to have more dental work done next week. This morning the patient was noticed to be decreased responsive, glucometer read high. Patient has a history of atrial fibrillation is on Eliquis and aspirin, she has a history of multiple strokes and dementia, is bedridden at baseline. On review of her chart the patient is on Ativan 0.5 mg every 4 hours scheduled which she has been receiving according to the MAR. She is also on 15 mg of morphine per PEG tube every 8 hours as needed, she received a dose at 930 this morning. 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 Onset Date: ~05/14/19 Dry eye syndrome of both lacrimal glands Onset Date: ~04/18/19 History of transient ischemic attack and cerebral infarction Onset Date: ~11/01/18 Hypertension, essential Onset Date: ~11/01/18 Hypertensive retinopathy of both eyes Onset Date: ~04/18/19 Hypothyroidism Onset Date: ~11/01/18 Morbid (severe) obesity due to excess calories Onset Date: ~11/19/18 Muscle wasting and atrophy, not elsewhere classified, multiple sites Onset Date: ~04/18/19 Non-pressure chronic ulcer of right lower leg with fat layer exposed Onset Date: Unknown Oral phase dysphagia Onset Date: ~05/14/19 Peripheral venous insufficiency Onset Date: ~11/01/18 Pulmonary embolism Onset Date: ~11/01/18 Pure hypercholesterolemia Onset Date: ~11/01/18 Sepsis Onset Date: Unknown 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) Onset Date: 04/18/19 Stasis ulcer of lower extremity Onset Date: Unknown Unspecified asthma, uncomplicated Onset Date: ~11/01/18 Weakness Onset Date: ~05/14/19 Anemia Onset Date: Unknown Asthma Onset Date: Unknown Atrial fibrillation and flutter Onset Date: Unknown CVA (cerebral vascular accident) Onset Date: Unknown HTN (hypertension) Onset Date: Unknown History of pulmonary embolus (PE) Onset Date: Unknown Hypothyroidism (acquired) Onset Date: Unknown Lymphedema of leg Onset Date: Unknown Morbid obesity with BMI of 50.0-59.9, adult Onset Date: Unknown Rheumatoid arthritis Onset Date: Unknown Venous insufficiency (chronic) (peripheral) Onset Date: Unknown BPPV (benign paroxysmal positional vertigo) Onset Date: Unknown Cellulitis Onset Date: Unknown right leg Dysuria Onset Date: Unknown H/O hyperkalemia Onset Date: Unknown History of CVA (cerebrovascular accident) Onset Date: Unknown Hypercholesteremia Onset Date: Unknown Surgical History: Surgical History (Last Reviewed 09/14/19 @ 11:06 by Kelly Dong MD) Gastrostomy status Onset Date: ~04/18/19 History of incision and drainage Onset Date: ~09/17/18 right thigh mass Family History: Family History (Last Reviewed 09/14/19 @ 14:12 by Corby Green RN) Mother Coronary artery disease Father Diabetes Sister Cancer breast Coronary artery disease Social History: (Last Reviewed 09/14/19 @ 14:12 by Corby Green RN) Social History: current occupational status: retired Service: No Tobacco: Smoking Status: Former smoker Alcohol: alcohol intake: never Substance Use: substance use type: does not use Dietary Habits: caffeine: Yes Physical Exam - Physical Exam General Appearance: Present: lethargic, obese Head Exam: Present: normal inspection, no evidence of injury Eye Exam: Normal inspection: bilateral Ears, Nose, Throat: Present: other - multiple missing teeth, dried blood on lips, no active bleeding Respiratory: Present: no respiratory distress, normal breath sounds, no accessory muscle use, lungs clear Cardiovascular/Chest: Present: regular rate, rhythm, no murmur Gastrointestinal/Abdominal: Present: nondistended, soft Extremity Exam: Present: no edema Neurological Exam: Present: other - responds to painful stimuli only, doesn't open eyes, resists bilateral arm movement but no active movement Skin Exam: Present: normal color, warm/dry Progress - Results and Orders Patient's Lab Results:: I have reviewed the patient's lab results. - Vital Signs Patient's Vital Signs:: I have reviewed the patient's vital signs. Vital Signs: Vital Signs 09/14/19 10:53 Temperature 36.4 C Pulse Rate 96 Respiratory Rate 14 Blood Pressure 195/85 H O2 Sat by Pulse Oximetry 100 - Progress/Reassessment Chief Complaint: Altered Mental Status Progress Note-Subjective: 09/14/19 11:26 after narcan patient alert, opens eyes, fiddling with bedding and telemetry wires 09/14/19 12:[address] Diez, shanteay to admit, as patient is not in DKA start subq insulin, continue fluids 09/14/19 12:23 patient resting in bed, vitals stable, responds to voice Departure Clinical Impression: Diabetes mellitus, new onset, Hyperkalemia Narcotic overdose Qualifiers: Encounter type: initial encounter Injury intent: accidental or unintentional Qualified Code(s): T40.601A - Poisoning by unspecified narcotics, accidental (unintentional), initial encounter Renal failure, acute Qualifiers: Acute renal failure type: unspecified Qualified Code(s): N17.9 - Acute kidney failure, unspecified - Departure Disposition: Still a patient Condition: Stable Gopal Coma Scale - Assess Eye Opening: None Motor: Localizes to Pain Verbal: Incomprehensible - Total Coma Scale Total: 8
[2019-09-14 11:19] LABS: Hematocrit 40.6 % (37.0-47.0); Hemoglobin 12.7 gm/dL (12.5-16.0); Mean Cell Volume 103.8 fl (78-100); Mean Corpuscular Hemoglobin 32.5 pg (27-31); Mean Corpuscular Hgb Conc 31.3 g/dl (32-36); Neutrophil % 64.1 % (42-75.0); Platelet Count 139 K/mm3 (150-450); Red Blood Count 3.91 M/mm3 (4.2-5.4); Red Cell Distribution Width 14.6 % (11.5-14.0); White Blood Count 9.3 K/mm3 (4.0-10.5)
[2019-09-14] MEDS ORDERED: NORMAL SALINE 1,000 ML IV ONE ×2 (11:23→14:35)
[2019-09-14 11:34] LABS: ALT 33 U/L (19-67); AST 33 U/L (0-48); Albumin * 1.9 gm/dl (3.4-5.0); Alkaline Phosphatase * 126 U/L (50-170); Bilirubin, Total 0.3 mg/dL (0.0-1.1); Ca. Corrected For Albumin 10.9 mg/dL (8.4-10.2); Calcium * 9.5 mg/dL (7.9-10.9); Carbon Dioxide 24.7 mmol/L (24-32.6); Chloride 106 mmol/L (97-106); Sodium 139 mmol/L (132-142); Total Protein 9.3 gm/dL (6.2-8.2)
[2019-09-14 11:54] LABS: Blood Urea Nitrogen 129 mg/dL (3-23)
[2019-09-14 11:55] LABS: Potassium 6.7 mmol/L (3.4-4.6)
[2019-09-14 11:56] LABS: Glucose * 1060 mg/dL (70-110)
[2019-09-14] MEDS ORDERED: INSULIN LISPRO 100 UNITS/ML VIAL SC ONE (12:06)
[2019-09-14] MEDS ORDERED: ACETAMINOPHEN 500 MG TABLET PO PRN (14:22)
[2019-09-14] MEDS ORDERED: SENNOSIDES/DOCUSATE SODIUM 1 TAB TABLET PEG PRN (14:30)
[2019-09-14] MEDS ORDERED: ALBUTEROL SULFATE 2.5 MG/0.5 ML VIAL.NEB IH PRN (14:30)
[2019-09-14] MEDS ORDERED: ACETAMINOPHEN 325 MG TABLET PEG PRN (14:30)
[2019-09-14] MEDS ORDERED: [UNRECOGNIZED DRUG - OTHER] PO SCH (14:45)
[2019-09-14] MEDS ORDERED: ENTERAL NUTRITION FORMULA PO SCH (14:45)
[2019-09-14] MEDS ORDERED: CYANOCOBALAMIN PO SCH (14:45)
[2019-09-14] MEDS: ARGININE PEG SCH (15:01)
[2019-09-14] MEDS: VITAMIN E PEG SCH (15:01)
[2019-09-14] MEDS: ZINC PEG SCH (15:01)
[2019-09-14] MEDS: ASCORBIC ACID PEG SCH (15:01)
[2019-09-14] MEDS: WHEY PROTEIN PEG SCH (15:01)
--- NOTE | 2019-09-14 15:21 | HP ---
Chief Complaint - Chief Complaint Date of Service: 09/14/19 Time of Service: 14:50 Chief Complaint: Patient is unresponsive. History of Present Illness: 73-year-old -[place] female intermediate resident at [facility] with past medical history of atrial fibrillation, bronchial asthma, benign positional vertigo, CVA, pulmonary embolism, hypertension, hypothyroidism, morbid obesity, rheumatoid arthritis, hypercholesterolemia was brought to the ER by EMS due to unresponsiveness that started yesterday evening at the intermediate. intermediate staff reports that after undergoing an oral procedure to remove multiple teeth the patient returned to the intermediate and was noted to be less responsive and interactive than usual. She was administered morphine several days before and on the day of the procedure to treat tooth pain and has also been taking Xanax for anxiety. Patient has dysarthria and dementia that resulted after CVA that occurred this past April but is usually wide-awake and interactive, intermediate staff became alarmed when she became unresponsive and obtunded. Blood glucose check revealed significant hyperglycemia although the patient does not have a history of diabetes. It was then decided that the patient should be taken to the ER for treatment and evaluation of her condition. Medical History (Last Reviewed 09/14/19 @ 14:11 by Corby Green RN) Generalized pain (Chronic) Altered mental status, unspecified Onset Date: ~04/18/19 Atrial fibrillation Onset Date: ~11/01/18 Benign paroxysmal positional vertigo due to bilateral vestibular disorder Onset Date: ~11/01/18 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 Onset Date: ~05/14/19 Dry eye syndrome of both lacrimal glands Onset Date: ~04/18/19 History of transient ischemic attack and cerebral infarction Onset Date: ~11/01/18 Hypertension, essential Onset Date: ~11/01/18 Hypertensive retinopathy of both eyes Onset Date: ~04/18/19 Hypothyroidism Onset Date: ~11/01/18 Morbid (severe) obesity due to excess calories Onset Date: ~11/19/18 Muscle wasting and atrophy, not elsewhere classified, multiple sites Onset Date: ~04/18/19 Non-pressure chronic ulcer of right lower leg with fat layer exposed Onset Date: Unknown Oral phase dysphagia Onset Date: ~05/14/19 Peripheral venous insufficiency Onset Date: ~11/01/18 Pulmonary embolism Onset Date: ~11/01/18 Pure hypercholesterolemia Onset Date: ~11/01/18 Sepsis Onset Date: Unknown 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) Onset Date: 04/18/19 Stasis ulcer of lower extremity Onset Date: Unknown Unspecified asthma, uncomplicated Onset Date: ~11/01/18 Weakness Onset Date: ~05/14/19 Anemia Onset Date: Unknown Asthma Onset Date: Unknown Atrial fibrillation and flutter Onset Date: Unknown CVA (cerebral vascular accident) Onset Date: Unknown HTN (hypertension) Onset Date: Unknown History of pulmonary embolus (PE) Onset Date: Unknown Hypothyroidism (acquired) Onset Date: Unknown Lymphedema of leg Onset Date: Unknown Morbid obesity with BMI of 50.0-59.9, adult Onset Date: Unknown Rheumatoid arthritis Onset Date: Unknown Venous insufficiency (chronic) (peripheral) Onset Date: Unknown BPPV (benign paroxysmal positional vertigo) Onset Date: Unknown Cellulitis Onset Date: Unknown right leg Dysuria Onset Date: Unknown H/O hyperkalemia Onset Date: Unknown History of CVA (cerebrovascular accident) Onset Date: Unknown Hypercholesteremia Onset Date: Unknown Surgical History: Surgical History (Last Reviewed 09/14/19 @ 14:11 by Corby Green RN) Gastrostomy status Onset Date: ~04/18/19 History of incision and drainage Onset Date: ~09/17/18 right thigh mass Family History: Family History (Last Reviewed 09/14/19 @ 14:12 by Corby Green RN) Mother Coronary artery disease Father Diabetes Sister Cancer breast Coronary artery disease Social History: (Last Reviewed 09/14/19 @ 14:12 by Corby Green RN) Social History: current occupational status: retired Service: No Tobacco: Smoking Status: Former smoker Alcohol: alcohol intake: never Substance Use: substance use type: does not use Dietary Habits: caffeine: Yes Peds Patient Hx - Developmental: No Pertinent Hx Peds Patient Hx - Medical: No Pertinent Hx Peds Patient Hx - Cardiac/Respiratory: No Pertinent Hx Peds Patient Hx - Surgical: No Surgical History Patient History - Cancer: No Hx of Cancer Review Of Systems (GEN) - Review of Systems Generalized/Overall Review: Present: Weakness EENTM: Present: Other - Tooth pain Respiratory: Present: No Symptoms Reported Cardiac: Present: No Symptoms Reported Abdominal: Present: No Symptoms Reported Genitourinary: Present: No Symptoms Reported Musculoskeletal: Present: No Symptoms Reported Neurological: Present: Weakness, Other - Altered mental status, unresponsiveness Skin: Present: No Symptoms Reported Endocrine: Present: Other - Hyperglycemia Immunizations: IMMUNIZATION HX Immunizations Up to Date Yes History of Influenza Vaccine Yes Hx Pneumococcal Vaccination Yes Allergies/Adverse Reactions: Allergies Allergy/AdvReac Type Severity Reaction Status Date / Time No Known Allergies Allergy Verified 09/14/19 14:12 Home Medications: HOME MEDICATIONS albuterol sulfate 90 mcg/actuation aerosol inhaler 2 inh IH Q4H PRN 10/31/18 [Last Taken Unknown] aspirin 81 mg tablet,delayed release 81 mg PEG DAILY 05/13/19 [Last Taken Unknown] atorvastatin 40 mg tablet 40 mg PEG DAILY 05/13/19 [Last Taken Unknown] carvedilol 3.125 mg tablet 3.125 mg FEEDING TUBE BID 05/13/19 [Last Taken Unknown] diltiazem HCl 240 mg capsule,extended release 24 hr 240 mg PEG DAILY 05/13/19 [Last Taken Unknown] folic acid 1 mg tablet 1 mg PEG DAILY 05/13/19 [Last Taken Unknown] omeprazole magnesium 2.5 mg oral suspension,delayed release 10 mg PO DAILY 05/13/19 [Last Taken Unknown] senna-docusate sodium 2 each PEG BID PRN #0 tab 05/13/19 [Last Taken Unknown] Acetaminophen [Tylenol] 325 mg PEG QID PRN 06/09/19 [Last Taken Unknown] morphine 15 mg immediate release tablet 15 mg PO Q8H PRN #60 tab 06/13/19 [Last Taken Unknown] cyanocobalamin (vitamin B-12) 1,000 mcg/mL oral drops 1 ml PO DAILY #60 ml 06/26/19 [Last Taken Unknown] amoxicillin 400 mg/5 mL oral suspension 500 mg FEEDING TUBE BID 10 Days #125 ml 09/12/19 [Last Taken Unknown] Apixaban [Eliquis] 5 mg PEG BID 09/14/19 [Last Taken Unknown] Lactose-Reduced Food/Fiber [Jevity 1.2 Cody Liquid] 65 ml PO DAILY 09/14/19 [Last Taken Unknown] Levothyroxine Sodium [Synthroid] 50 mcg PEG DAILY 09/14/19 [Last Taken Unknown] Lorazepam 0.5 mg PO Q4H 09/14/19 [Last Taken Unknown] Whey Protein/Arginine/C/E/Zinc [Arginaid Extra Liquid] 237 ml PEG DAILY 09/14/19 [Last Taken Unknown] Exam - Exam Vital Signs: Vital Signs - Last Taken Temp 36.4 C 09/14/19 14:33 Pulse 96 09/14/19 14:33 Resp 22 H 09/14/19 14:33 BP 123/83 09/14/19 14:33 Pulse Ox 100 09/14/19 14:33 Constitutional: Present: Well developed, Obtunded, Elderly, Morbidly obese ENT Exam: Present: normal ENT inspection, hearing grossly normal, pharynx normal, TMs normal Eye Exam: bilateral eye: abnormal pupil Neck: Present: non-tender, full range of motion, supple, normal inspection, trachea midline Breasts: Present: Exam deferred Respiratory: Present: chest non-tender, lungs clear, normal breath sounds, no respiratory distress, no accessory muscle use Cardiovascular/Chest: Present: normal peripheral pulses, regular rate, rhythm, no chest tenderness, no edema, no gallop, no JVD, no murmur, no rub, systolic murmur Peripheral Pulses: carotid (R): 3+, carotid (L): 3+, femoral (R): 3+, femoral (L): 3+, dorsalis-pedis (R): 3+, dorsalis-pedis (L): 3+ Abdomen: Present: Normal bowel sounds, soft, nontender, nondistended, no rebound tenderness, no hepatospenomegaly, no masses, obese /Rectal: Present: Exam deferred Extremity: Present: normal range of motion, non-tender, normal inspection, no pedal edema, no calf tenderness, normal capillary refill, pelvis stable Skin Exam: Present: normal color, warm/dry, no cyanosis, other - Multiple fully healed superficial scars on thorax and upper extremity Lymphatic: Present: no adenopathy Neurologic: Present: abnormal apple sorter II-XII, other - Patient is obtunded and only responsive to painful stimuli Eye contact: Present: other Thoughts: Present: other Diagnostic Studies: Abnormal Lab Results 09/14/19 09/14/19 Range/Units 11:14 11:14 RBC 3.91 L (4.2-5.4) M/mm3 MCV 103.8 H (78-100) fl MCH 32.5 H (27-31) pg MCHC 31.3 L (32-36) g/dl RDW 14.6 H (11.5-14.0) % Plt Count 139 L (150-450) K/mm3 Plasma Sodium 154 H (130-142) mmol/L Potassium 6.7 H* D (3.4-4.6) mmol/L Anion Gap 15.0 H (6.8-13.8) mmol/L BUN 129 H D (3-23) mg/dL Creatinine 3.00 H D (0.4-1.4) mg/dL Est GFR (Non-Af Amer) 16 L D (60-130) mL/min BUN/Creatinine Ratio 43.0 H (9.0-21.6) Random Glucose 1060 H (70-110) mg/dL Calcium Adj for Albumin 10.9 H (8.4-10.2) mg/dL Total Protein 9.3 H (6.2-8.2) gm/dL Albumin 1.9 L (3.4-5.0) gm/dl Laboratory Results WBC 9.3 K/mm3 (4.0-10.5) 09/14/19 11:14 RBC 3.91 M/mm3 (4.2-5.4) L 09/14/19 11:14 Hgb 12.7 gm/dL (12.5-16.0) 09/14/19 11:14 Hct 40.6 % (37.0-47.0) 09/14/19 11:14 MCV 103.8 fl (78-100) H 09/14/19 11:14 MCH 32.5 pg (27-31) H 09/14/19 11:14 MCHC 31.3 g/dl (32-36) L 09/14/19 11:14 RDW 14.6 % (11.5-14.0) H 09/14/19 11:14 Plt Count 139 K/mm3 (150-450) L 09/14/19 11:14 Immature Gran % (Auto) 0.30 % (0.001-0.429) 09/14/19 11:14 Immature Gran # (Auto) 0.03 K/mm3 (0.000-0.0310) 09/14/19 11:14 Neutrophils % 64.1 % (42-75.0) 09/14/19 11:14 Lymphocytes % 27.9 % (20-51) 09/14/19 11:14 Monocytes % 6.3 % (0.0-9) 09/14/19 11:14 Eosinophils % 1.0 % (0.0-3.0) 09/14/19 11:14 Basophils % 0.4 % (0.0-1.0) 09/14/19 11:14 Nucleated RBC % 0.0 k/mm3 (0-1) 09/14/19 11:14 Neutrophils # 6.0 K/mm3 (1.3-6.0) 09/14/19 11:14 Lymphocytes # 2.61 k/mm3 (1.5-3.5) 09/14/19 11:14 Monocytes # 0.6 k/mm3 (0.0-1.0) 09/14/19 11:14 Eosinophils # 0.1 k/mm3 (0.0-0.7) 09/14/19 11:14 Absolute Basophils 0.0 k/mm3 (0.0-0.1) 09/14/19 11:14 VBG pH 7.361 (7.32-7.43) 09/14/19 11:14 Sodium 139 mmol/L (132-142) 09/14/19 11:14 Plasma Sodium 154 mmol/L (130-142) H 09/14/19 11:14 Potassium 6.7 mmol/L (3.4-4.6) H* D 09/14/19 11:14 Chloride 106 mmol/L (97-106) 09/14/19 11:14 Carbon Dioxide 24.7 mmol/L (24-32.6) 09/14/19 11:14 Anion Gap 15.0 mmol/L (6.8-13.8) H 09/14/19 11:14 BUN 129 mg/dL (3-23) H D 09/14/19 11:14 Creatinine 3.00 mg/dL (0.4-1.4) H D 09/14/19 11:14 Est GFR (Non-Af Amer) 16 mL/min (60-130) L D 09/14/19 11:14 BUN/Creatinine Ratio 43.0 (9.0-21.6) H 09/14/19 11:14 Random Glucose 1060 mg/dL (70-110) H 09/14/19 11:14 Calcium 9.5 mg/dL (7.9-10.9) 09/14/19 11:14 Calcium Adj for Albumin 10.9 mg/dL (8.4-10.2) H 09/14/19 11:14 Total Bilirubin 0.3 mg/dL (0.0-1.1) 09/14/19 11:14 AST 33 U/L (0-48) 09/14/19 11:14 ALT 33 U/L (19-67) 09/14/19 11:14 Alkaline Phosphatase 126 U/L (50-170) 09/14/19 11:14 Total Protein 9.3 gm/dL (6.2-8.2) H 09/14/19 11:14 Albumin 1.9 gm/dl (3.4-5.0) L 09/14/19 11:14 Serum Ketones Negative (NEGATIVE) 09/14/19 11:14 Assessment/Plan - Narrative Narrative: Patient was evaluated and medical chart was reviewed and decision to admit to inpatient for treatment of obtundation due to possible opioid overdose was made. She was administered Narcan while in the ER and shortly after that she woke up and was responsive, however she eventually fell asleep and became obtunded again. Currently the patient maintains stable vitals and is saturating adequately. She has a Gopal score of 9 but is maintaining her airway and adequate oxygen saturation. Xanax and morphine were held. Labs in the ED demonstrated significant elevated glucose levels higher than a thousand. She was started on IV fluids and was administered subcutaneous insulin. Currently b lood sugar readings are still greater than 500, therefore we will keep patient on IV fluids and cover her with a sliding scale and long-acting insulin. Patient son denies a past medical history of diabetes or ever being told that the mother had elevated blood sugars. Currently there are no signs and symptoms of infection and labs are negative for leukocytosis or any bandemia but can explain the elevated sugars. However she had significant electrolyte imbalance specifically hyperkalemia and hyponatremia, this is most likely secondary to the elevated glucose levels. EKG was done in the ER but was negative for any T wave abnormalities. Hopefully electrolytes will improve with the management of the hyperglycemia. Follow-up CMP has been ordered for this evening to reevaluate electrolytes as well as glucose levels. In the meantime, we will administer another dose of Narcan to reverse the opioids and keep her on telemetry to continue to monitor the patient. - Assessment/Plan (1) intermediate resident Problem: Chronic (2) Narcotic overdose Problem: Acute Qualifiers: Encounter type: initial encounter Injury intent: accidental or unintentional Qualified Code(s): T40.601A - Poisoning by unspecified narc otics, accidental (unintentional), initial encounter (3) Diabetes mellitus, new onset Problem: Acute (4) Vascular dementia with behavior disturbance Problem: Chronic (5) Status post CVA Problem: Chronic (6) Morbid obesity Problem: Acute (7) Opioid overdose Problem: Acute (8) Hyperkalemia Problem: Acute (9) Hypernatremia Problem: Acute
[2019-09-14] MEDS: LEVOTHYROXINE SODIUM 50 MCG TABLET PEG SCH (16:44)
[2019-09-14] MEDS: AMOXICILLIN TRIHYDRATE 400 MG/5 ML PO SCH ×2 (16:44→21:15)
[2019-09-14] MEDS: ASPIRIN 81 MG TABLET.DR PEG SCH (16:46)
[2019-09-14] MEDS: APIXABAN 5 MG TABLET PO SCH ×2 (16:46→21:16)
[2019-09-14] MEDS: FOLIC ACID 1 MG TABLET PEG SCH (16:46)
[2019-09-14] MEDS: DILTIAZEM HCL 240 MG CAP.SR.24H PO SCH (16:46)
[2019-09-14] MEDS: CARVEDILOL 3.125 MG TABLET PO SCH ×2 (16:46→21:30)
[2019-09-14] MEDS ORDERED: INSULIN LISPRO 100 UNITS/ML VIAL SC SCH (17:00)
[2019-09-14] MEDS ORDERED: NORMAL SALINE 500 ML IV ONE (17:31)
[2019-09-14] MEDS: INSULIN REGULAR, HUMAN 100 UNITS/ML VIAL SC SCH ×2 (17:49→21:20)
[2019-09-14 19:54] LABS: Albumin * 1.7 gm/dl (3.4-5.0); Anion Gap 13.4 mmol/L (6.8-13.8); BUN/Creatinine Ratio 44.1 (9.0-21.6); Bilirubin, Total 0.3 mg/dL (0.0-1.1); Ca. Corrected For Albumin 10.4 mg/dL (8.4-10.2); Calcium * 8.9 mg/dL (7.9-10.9); Carbon Dioxide 25.7 mmol/L (24-32.6); Potassium 5.1 mmol/L (3.4-4.6); Total Protein 8.4 gm/dL (6.2-8.2)
[2019-09-14] MEDS: ROSUVASTATIN CALCIUM 20 MG TABLET PO SCH (21:16)
[2019-09-14] MEDS: INSULIN GLARGINE,HUM.REC.ANLOG 100 UNITS/ML VIAL SC SCH (21:17)
[2019-09-14] MEDS: PANTOPRAZOLE SODIUM 20 MG TABLET.DR PO SCH (21:24)
[2019-09-14] MEDS: 0.5 NORMAL SALINE 1,000 ML IV PRN (21:49)
[2019-09-15] MEDS: 0.5 NORMAL SALINE 1,000 ML IV PRN ×3 (06:03→22:08)
[2019-09-15] MEDS: INSULIN REGULAR, HUMAN 100 UNITS/ML VIAL SC SCH ×4 (06:50→20:38)
[2019-09-15] MEDS: PANTOPRAZOLE SODIUM 20 MG TABLET.DR PO SCH ×2 (06:50→20:42)
[2019-09-15 07:14] LABS: Albumin * 1.9 gm/dl (3.4-5.0); Anion Gap 14.8 mmol/L (6.8-13.8); BUN/Creatinine Ratio 45.8 (9.0-21.6); Bilirubin, Total 0.4 mg/dL (0.0-1.1); Ca. Corrected For Albumin 10.8 mg/dL (8.4-10.2); Calcium * 9.4 mg/dL (7.9-10.9); Carbon Dioxide 23.6 mmol/L (24-32.6); Potassium 5.4 mmol/L (3.4-4.6); Total Protein 8.4 gm/dL (6.2-8.2)
[2019-09-15] MEDS: CYANOCOBALAMIN 1,000 MCG TABLET PO SCH (09:03)
[2019-09-15] MEDS: ASPIRIN 81 MG TABLET.DR PEG SCH (09:03)
[2019-09-15] MEDS: FOLIC ACID 1 MG TABLET PEG SCH (09:03)
[2019-09-15] MEDS: APIXABAN 5 MG TABLET PO SCH ×2 (09:03→20:36)
[2019-09-15] MEDS: DILTIAZEM HCL 240 MG CAP.SR.24H PO SCH (09:04)
[2019-09-15] MEDS: VITAMIN E PEG SCH (09:04)
[2019-09-15] MEDS: ZINC PEG SCH (09:04)
[2019-09-15] MEDS: ARGININE PEG SCH (09:04)
[2019-09-15] MEDS: ASCORBIC ACID PEG SCH (09:04)
[2019-09-15] MEDS: AMOXICILLIN TRIHYDRATE 400 MG/5 ML PO SCH ×2 (09:04→20:35)
[2019-09-15] MEDS: WHEY PROTEIN PEG SCH (09:04)
[2019-09-15] MEDS: LEVOTHYROXINE SODIUM 50 MCG TABLET PEG SCH (09:04)
[2019-09-15] MEDS: CARVEDILOL 3.125 MG TABLET PO SCH ×2 (09:04→20:36)
[2019-09-15] MEDS ORDERED: NALOXONE HCL 1 MG/1 ML SYRG IV ONE (11:55)
--- NOTE | 2019-09-15 11:55 | PN ---
Subjective - Date and Time Seen Date: 09/15/19 Time: 11:47 Subjective Narrative: Patient is nonverbal but alert Objective Objective Narrative: 73-year-old -[place] female admitted for altered mental status secondary to opioid overdose was evaluated at bedside was found to be afebrile and in no acute distress. Patient is alert and more awake today, she now responds to verbal and tactile stimuli although she still appears drowsy. Narcan was administered yesterday and appears to have had some effect given the improvement of her mental status. Her hyperglycemia has greatly improved in response to insulin therapy combined with IV fluids. She is still hyperkalemic but there has been a great improvement in potassium levels in response to the insulin. We will reevaluate electrolytes as well as renal function with follow- up lab testing. - Review of Systems Generalized/Overall Review: Reports: No Symptoms Reported EENTM: Reports: No Symptoms Reported Respiratory: Reports: No Symptoms Reported Cardiac: Reports: No Symptoms Reported Abdominal: Reports: No Symptoms Reported Genitourinary Symptoms: Reports: No Symptoms Reported Musculoskeletal Complaints: Reports: No Symptoms Reported Neurological: Reports: Pre-existing Deficit, Other - Somnolence Skin: Reports: No Symptoms Reported Endocrine: Reports: No Symptoms Reported - Vitals Vitals: Last Vital Signs Temp 36.5 C 09/15/19 10:00 Pulse 62 09/15/19 10:00 Resp 20 09/15/19 10:00 BP 116/51 09/15/19 10:00 Pulse Ox 100 09/15/19 10:00 - Abnormal Lab Findings Abnormal Lab Findings: Abnormal Lab Results 09/14/19 09/14/19 09/15/19 Range/Units 11:14 19:35 06:15 Sodium 147 H 149 H (132-142) mmol/L Plasma Sodium 154 H 156 H 151 H (130-142) mmol/L Potassium 6.7 H* D 5.1 H D 5.4 H (3.4-4.6) mmol/L Chloride 113 H 116 H (97-106) mmol/L Carbon Dioxide 23.6 L (24-32.6) mmol/L Anion Gap 15.0 H 14.8 H (6.8-13.8) mmol/L BUN 129 H D 128 H 110 H (3-23) mg/dL Creatinine 3.00 H D 2.90 H 2.40 H D (0.4-1.4) mg/dL Est GFR (Non-Af Amer) 16 L D 17 L 21 L D (60-130) mL/min BUN/Creatinine Ratio 43.0 H 44.1 H 45.8 H (9.0-21.6) Random Glucose 1060 H 654 H D 252 H D (70-110) mg/dL Calcium Adj for Albumin 10.9 H 10.4 H 10.8 H (8.4-10.2) mg/dL Total Protein 9.3 H 8.4 H 8.4 H (6.2-8.2) gm/dL Albumin 1.9 L 1.7 L 1.9 L (3.4-5.0) gm/dl - Exam Constitutional: Present: No distress, Somnolent, Elderly, Morbidly obese ENT Exam: Present: hard of hearing Neck: Present: non-tender, full range of motion, supple, normal inspection, trachea midline Breasts: Present: Exam deferred Respiratory: Present: chest non-tender, lungs clear, normal breath sounds, no respiratory distress, no accessory muscle use Cardiovascular/Chest: Present: normal peripheral pulses, regular rate, rhythm, no chest tenderness, no edema, no gallop, no JVD, no murmur, no rub Abdomen: Present: Normal bowel sounds, soft, nontender, nondistended, no rebound tenderness, no hepatospenomegaly, obese /Rectal: Present: Exam deferred Extremity: Present: normal range of motion, non-tender, normal inspection, no pedal edema, no calf tenderness, normal capillary refill, pelvis stable Skin Exam: Present: normal color, warm/dry Lymphatic: Present: no adenopathy Neurologic: Present: 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 We will keep current therapies and reevaluate in the morning. - Problems/Diagnosis (1) detention resident Problem: Chronic (2) Narcotic overdose Problem: Acute Qualifiers: Encounter type: initial encounter Injury intent: accidental or unintentional Qualified Code(s): T40.601A - Poisoning by unspecified narcotics, accidental (unintentional), initial encounter (3) Diabetes mellitus, new onset Problem: Acute (4) Vascular dementia with behavior disturbance Problem: Chronic (5) Status post CVA Problem: Chronic (6) Morbid obesity Problem: Chronic (7) Opioid overdose Problem: Acute (8) Hyperkalemia Problem: Acute (9) Hypernatremia Problem: Acute (10) Somnolence Problem: Acute
[2019-09-15] MEDS: ROSUVASTATIN CALCIUM 20 MG TABLET PO SCH (20:36)
[2019-09-15] MEDS: INSULIN GLARGINE,HUM.REC.ANLOG 100 UNITS/ML VIAL SC SCH (20:41)
[2019-09-16] MEDS: 0.5 NORMAL SALINE 1,000 ML IV PRN (06:58)
[2019-09-16 07:04] LABS: Albumin * 1.3 gm/dl (3.4-5.0); Anion Gap 13.4 mmol/L (6.8-13.8); BUN/Creatinine Ratio 40.8 (9.0-21.6); Bilirubin, Total 0.4 mg/dL (0.0-1.1); Calcium * 8.2 mg/dL (7.9-10.9); Carbon Dioxide 22.1 mmol/L (24-32.6); Potassium 4.5 mmol/L (3.4-4.6); Total Protein 6.9 gm/dL (6.2-8.2)
[2019-09-16] MEDS: LEVOTHYROXINE SODIUM 50 MCG TABLET PEG SCH (08:19)
[2019-09-16] MEDS: DILTIAZEM HCL 240 MG CAP.SR.24H PO SCH (08:19)
[2019-09-16] MEDS: AMOXICILLIN TRIHYDRATE 400 MG/5 ML PO SCH (08:19)
[2019-09-16] MEDS: PANTOPRAZOLE SODIUM 20 MG TABLET.DR PO SCH (08:19)
[2019-09-16] MEDS: CARVEDILOL 3.125 MG TABLET PO SCH (08:19)
[2019-09-16] MEDS: APIXABAN 5 MG TABLET PO SCH (08:19)
[2019-09-16] MEDS: CYANOCOBALAMIN 1,000 MCG TABLET PO SCH (08:19)
[2019-09-16] MEDS: FOLIC ACID 1 MG TABLET PEG SCH (08:19)
[2019-09-16] MEDS: ASPIRIN 81 MG TABLET.DR PEG SCH (08:19)
[2019-09-16] MEDS: ZINC PEG SCH (08:20)
[2019-09-16] MEDS: ARGININE PEG SCH (08:20)
[2019-09-16] MEDS: WHEY PROTEIN PEG SCH (08:20)
[2019-09-16] MEDS: ASCORBIC ACID PEG SCH (08:20)
[2019-09-16] MEDS: VITAMIN E PEG SCH (08:20)
[2019-09-16] MEDS: INSULIN REGULAR, HUMAN 100 UNITS/ML VIAL SC SCH ×2 (08:34→12:39)
--- NOTE | 2019-09-16 10:09 | PN ---
Subjective - Date and Time Seen Date: 09/16/19 Time: 10:02 Subjective Narrative: Patient is awake but has dysarthric speech due to old CVA. Objective Objective Narrative: 73-year-old -[place] female admitted for altered mental status secondary to opioid overdose and hypoglycemia was evaluated at bedside was found to be afebrile and in no acute distress. Patient is clinically better, she is fully awake and appears to be at her baseline. Patient suffered a stroke at the beginning of this year which left her with dysarthria and hemiparesis so these neurologic deficits are not new. She maintained stable vitals and is saturating adequately on her own. Patient was treated with multiple Narcan's during the weekend to address the apparent overdose from opioids and it appears that she has responded favorably. Lab this morning also encouraging, they show an improvement in her renal function as well as electrolytes. In fact her hyperkalemia has resolved and her blood glucose levels are now near normal range. We will restart the patient's PEG tube feeding with her usual Jevity and other supplements and continue monitoring her. - Review of Systems Generalized/Overall Review: Reports: No Symptoms Reported EENTM: Reports: No Symptoms Reported Respiratory: Reports: No Symptoms Reported Cardiac: Reports: No Symptoms Reported Abdominal: Reports: No Symptoms Reported Genitourinary Symptoms: Reports: No Symptoms Reported Musculoskeletal Complaints: Reports: No Symptoms Reported Neurological: Reports: Pre-existing Deficit Skin: Reports: No Symptoms Reported Endocrine: Reports: No Symptoms Reported - Vitals Vitals: Last Vital Signs Temp 36.9 C 09/16/19 06:52 Pulse 86 09/16/19 08:19 Resp 20 09/16/19 06:52 BP 134/55 09/16/19 08:19 Pulse Ox 100 09/16/19 06:52 - Abnormal Lab Findings Abnormal Lab Findings: Abnormal Lab Results 09/16/19 Range/Units 06:10 Sodium 145 H (132-142) mmol/L Plasma Sodium 147 H (130-142) mmol/L Chloride 114 H (97-106) mmol/L Carbon Dioxide 22.1 L (24-32.6) mmol/L BUN 86 H (3-23) mg/dL Creatinine 2.11 H (0.4-1.4) mg/dL Est GFR (Non-Af Amer) 24 L (60-130) mL/min BUN/Creatinine Ratio 40.8 H (9.0-21.6) Random Glucose 213 H (70-110) mg/dL Albumin 1.3 L (3.4-5.0) gm/dl - Exam Constitutional: Present: Alert, Cooperative, Well developed, No distress, Elderly, Morbidly obese ENT Exam: Present: normal ENT inspection, hearing grossly normal, pharynx normal, TMs normal Neck: Present: non-tender, full range of motion, supple, normal inspection, trachea midline Breasts: Present: Exam deferred Respiratory: Present: chest non-tender, lungs clear, normal breath sounds, no respiratory distress, no accessory muscle use Cardiovascular/Chest: Present: normal peripheral pulses, regular rate, rhythm, no chest tenderness, no edema, no gallop, no JVD, no murmur, no rub Abdomen: Present: soft, nontender, nondistended, no rebound tenderness, no hepatospenomegaly, no masses, obese, other - PEG tube in epigastric region, no signs of infection or bleeding. 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, aphasia, motor weakness, disoriented x 3 Appearance: Present: impaired insight, impaired recent memory, impaired remote memory Eye contact: Present: cooperative, good eye contact, belligerent, other - Dysarthric speech Thoughts: Present: no apparent hallucination Assessment/Plan - Problems/Diagnosis (1) [facility] resident Problem: Chronic (2) Narcotic overdose Problem: Acute Qualifiers: Encounter type: initial encounter Injury intent: accidental or unintentional Qualified Code(s): T40.601A - Poisoning by unspecified narcotics, accidental (unintentional), initial encounter (3) Diabetes mellitus, new onset Problem: Acute (4) Vascular dementia with behavior disturbance Problem: Chronic (5) Status post CVA Problem: Chronic (6) Morbid obesity Problem: Chronic (7) Opioid overdose Problem: Acute (8) Hyperkalemia Problem: Acute (9) Hypernatremia Problem: Acute (10) Somnolence Problem: Acute (11) JORGE (acute kidney injury) Problem: Acute
--- NOTE | 2019-09-16 11:36 | DS ---
(1) shelter resident Problem: Chronic (2) Narcotic overdose Problem: Resolved Qualifiers: Encounter type: initial encounter Injury intent: accidental or unintentional Qualified Code(s): T40.601A - Poisoning by unspecified narcotics, accidental (unintentional), initial encounter (3) Diabetes mellitus, new onset Problem: Acute (4) Vascular dementia with behavior disturbance Problem: Chronic (5) Status post CVA Problem: Chronic (6) Morbid obesity Problem: Chronic (7) Opioid overdose Problem: Resolved (8) Hyperkalemia Problem: Resolved (9) Hypernatremia Problem: Acute (10) Somnolence Problem: Resolved (11) JORGE (acute kidney injury) Problem: Acute Date of Discharge:: 09/16/19 Hospital Course: 73-year-old -[place] female admitted for opioid overdose and hypoglycemia was evaluated at bedside was found to be afebrile and in no acute distress. As stated in this morning's progress note the patient has shown significant clinical improvement, she is fully awake now and attempts to talk. The patient has a dysarthria and hemiparesis as a result of a stroke that occurred earlier this year so her neurological deficits appear to be her baseline and nothing new. She was treated with multiple Narcan during the weekend to reverse the opioid effects and responded well. Labs this morning demonstrate improvement in her renal function however she is still not at her baseline, therefore we will send her back to the [facility] with orders to repeat a CMP and 3 days for reevaluation. We have restarted her PEG feeding with the usual supplements and she is tolerating without any issues. Blood glucose levels have significantly improved with extensive IV hydration and insulin therapy. Patient has no history of type 2 diabetes but her glucose levels will need to be monitored and addressed by her PCP. Will follow all necessary documents for discharge back to the snf. Procedures Performed: none Results and Findings: Lab Pending Results 09/14/19 11:14: WBC 9.3, RBC 3.91 L, Hgb 12.7, Hct 40.6, MCV 103.8 H, MCH 32.5 H, MCHC 31.3 L, RDW 14.6 H, Plt Count 139 L, Immature Gran % (Auto) 0.30, Immature Gran # (Auto) 0.03, Neutrophils % 64.1, Lymphocytes % 27.9, Monocytes % 6.3, Eosinophils % 1.0, Basophils % 0.4, Nucleated RBC % 0.0, Neutrophils # 6.0, Lymphocytes # 2.61, Monocytes # 0.6, Eosinophils # 0.1, Absolute Basophils 0.0 09/14/19 11:14: VBG pH 7.361 09/14/19 11:14: Sodium 139, Plasma Sodium 154 H, Potassium 6.7 H* D, Chloride 106, Carbon Dioxide 24.7, Anion Gap 15.0 H, BUN 129 H D, Creatinine 3.00 H D, Est GFR (Non-Af Amer) 16 L D, BUN/Creatinine Ratio 43.0 H, Random Glucose 1060 H, Calcium 9.5, Calcium Adj for Albumin 10.9 H, Total Bilirubin 0.3, AST 33, ALT 33, Alkaline Phosphatase 126, Total Protein 9.3 H, Albumin 1.9 L, Serum Ketones Negative 09/14/19 19:35: Sodium 147 H, Plasma Sodium 156 H, Potassium 5.1 H D, Chloride 113 H, Carbon Dioxide 25.7, Anion Gap 13.4, BUN 128 H, Creatinine 2.90 H, Est GFR (Non-Af Amer) 17 L, BUN/Creatinine Ratio 44.1 H, Random Glucose 654 H D, Calcium 8.9, Calcium Adj for Albumin 10.4 H, Total Bilirubin 0.3, AST 35, ALT 31, Alkaline Phosphatase 126, Total Protein 8.4 H, Albumin 1.7 L 09/15/19 06:15: Sodium 149 H, Plasma Sodium 151 H, Potassium 5.4 H, Chloride 116 H, Carbon Dioxide 23.6 L, Anion Gap 14.8 H, BUN 110 H, Creatinine 2.40 H D, Est GFR (Non-Af Amer) 21 L D, BUN/Creatinine Ratio 45.8 H, Random Glucose 252 H D, Calcium 9.4, Calcium Adj for Albumin 10.8 H, Total Bilirubin 0.4, AST 36, ALT 31, Alkaline Phosphatase 116, Total Protein 8.4 H, Albumin 1.9 L 09/16/19 06:10: Sodium 145 H, Plasma Sodium 147 H, Potassium 4.5, Chloride 114 H, Carbon Dioxide 22.1 L, Anion Gap 13.4, BUN 86 H, Creatinine 2.11 H, Est GFR (Non-Af Amer) 24 L, BUN/Creatinine Ratio 40.8 H, Random Glucose 213 H, Calcium 8.2, Calcium Adj for Albumin 10.0, Total Bilirubin 0.4, AST 34, ALT 25, Alkaline Phosphatase 91, Total Protein 6.9, Albumin 1.3 L Discharge Location: [facility] Disposition: Intermediate Care Facility ICF Condition: Stable Face to Face Encounter completed per [facility] Guidelines: No Level of Care: ICF Discharge Activity: Activity as tolerated Discharge Diet: Tube Feedings, Resume usual diet Additional Patient Instructions (free text): Checks blood sugar daily and advised PCP if dextrose remains above 200. Complete Home Medications List: Complete Home Medication List: albuterol sulfate 90 mcg/actuation aerosol inhaler 2 inh IH Q4H PRN 10/31/18 aspirin 81 mg tablet,delayed release 81 mg PEG DAILY 05/13/19 atorvastatin 40 mg tablet 40 mg PEG DAILY 05/13/19 carvedilol 3.125 mg tablet 3.125 mg FEEDING TUBE BID 05/13/19 diltiazem HCl 240 mg capsule,extended release 24 hr 240 mg PEG DAILY 05/13/19 folic acid 1 mg tablet 1 mg PEG DAILY 05/13/19 omeprazole magnesium 2.5 mg oral suspension,delayed release 10 mg PO DAILY 05/13/19 senna-docusate sodium 2 each PEG BID PRN #0 tab 05/13/19 Acetaminophen [Tylenol] 325 mg PEG QID PRN 06/09/19 cyanocobalamin (vitamin B-12) 1,000 mcg/mL oral drops 1 ml PO DAILY #60 ml 06/26/19 amoxicillin 400 mg/5 mL oral suspension 500 mg FEEDING TUBE BID 10 Days #125 ml 09/12/19 Apixaban [Eliquis] 5 mg PEG BID 09/14/19 Lactose-Reduced Food/Fiber [Jevity 1.2 [place] Liquid] 65 ml PO DAILY 09/14/19 Levothyroxine Sodium [Synthroid] 50 mcg PEG DAILY 09/14/19 Lorazepam 0.5 mg PO Q4H 09/14/19 Whey Protein/Arginine/C/E/Zinc [Arginaid Extra Liquid] 237 ml PEG DAILY 09/14/19 Forms: Patient Portal Registration
[2019-09-16 15:57] VITALS: BP 138/70
== END 2019-09-16 15:50 | DRG 918 ==
LOC: ER 10:45 → MS 12:19
PROVIDERS: ADMIT Family Medicine; ATTEND Allergy & Immunology
CPT/HCPCS: 36415; 80053; 82009; 82800; 85025; 87081; 93005; 96374; 99214; 99285; G0463; U0001

== ENCOUNTER 2019-09-20 04:42 | Inpatient (IN) ==
[2019-09-20] MEDS ORDERED: NORMAL SALINE 1,000 ML IV ONE ×2 (04:50→07:05)
--- NOTE | 2019-09-20 05:07 | ERNOTE ---
Medical Problem HPI - Narrative Date of Service: 09/20/19 - General Chief Complaint: Diabetes Related Problem Time Seen by Provider: 09/20/19 04:46 Source: EMS notes reviewed Exam Limitations: no limitations - Immun/Allergies/Home Medications Immunizations: IMMUNIZATION HX Immunizations Up to Date Yes History of Influenza Vaccine Yes Hx Pneumococcal Vaccination Yes Allergies/Adverse Reactions: Allergies No Known Allergies Allergy (Verified 09/14/19 14:12) Home Medications: HOME MEDICATIONS albuterol sulfate 90 mcg/actuation aerosol inhaler 2 inh IH Q4H PRN 10/31/18 [Last Taken Unknown] aspirin 81 mg tablet,delayed release 81 mg PEG DAILY 05/13/19 [Last Taken Unknown] atorvastatin 40 mg tablet 40 mg PEG DAILY 05/13/19 [Last Taken Unknown] carvedilol 3.125 mg tablet 3.125 mg FEEDING TUBE BID 05/13/19 [Last Taken Unknown] diltiazem HCl 240 mg capsule,extended release 24 hr 240 mg PEG DAILY 05/13/19 [Last Taken Unknown] folic acid 1 mg tablet 1 mg PEG DAILY 05/13/19 [Last Taken Unknown] omeprazole magnesium 2.5 mg oral suspension,delayed release 10 mg PO DAILY 05/13/19 [Last Taken Unknown] senna-docusate sodium 2 each PEG BID PRN #0 tab 05/13/19 [Last Taken Unknown] Acetaminophen [Tylenol] 325 mg PEG QID PRN 06/09/19 [Last Taken Unknown] cyanocobalamin (vitamin B-12) 1,000 mcg/mL oral drops 1 ml PO DAILY #60 ml 06/26/19 [Last Taken Unknown] amoxicillin 400 mg/5 mL oral suspension 500 mg FEEDING TUBE BID 10 Days #125 ml 09/12/19 [Last Taken Unknown] Apixaban [Eliquis] 5 mg PEG BID 09/14/19 [Last Taken Unknown] Lactose-Reduced Food/Fiber [Jevity 1.2 Cody Liquid] 65 ml PO DAILY 09/14/19 [Last Taken Unknown] Levothyroxine Sodium [Synthroid] 50 mcg PEG DAILY 09/14/19 [Last Taken Unknown] Lorazepam 0.5 mg PO Q4H 09/14/19 [Last Taken Unknown] Whey Protein/Arginine/C/E/Zinc [Arginaid Extra Liquid] 237 ml PEG DAILY 09/14/19 [Last Taken Unknown] - History of Present History Narrative: 73-year-old female lives in a half-way was just discharged from the hospital on the 16th was found on rounds tonight have elevated high blood sugar she is been relatively new diabetes she is also being treated for a dental problem the route by EMS states the glucose readings were registering as high both at the half-way and in their own system she is basically conscious but confused which is seems to be her baseline according to past notes Date (Duration): 09/20/19 Time (Timing): 04:56 Timing: constant Severity: moderate Review of Systems - Narrative Narrative: Review of systems limited due to patient's dementia - Review of Systems Constitutional: Present: recent illness EYE: Present: no symptoms reported ENT: Present: other - Poor dentition Respiratory: Present: no symptoms reported Cardiology: Present: palpitations Gastrointestinal/Abdominal: Present: no symptoms reported Genitourinary: Present: frequency Musculoskeletal: Present: back pain Skin: Present: no symptoms reported Neurological: Present: pre-existing deficit, other - Old CVA Hematologic/Lymphatic: Present: no symptoms reported Psych: Present: no symptoms reported All Other Systems: All systems neg except as marked Medical History (Last Reviewed 09/20/19 @ 04:57 by Manan Blair MD) Generalized pain (Chronic) Altered mental status, unspecified Onset Date: ~04/18/19 Atrial fibrillation Onset Date: ~11/01/18 Benign paroxysmal positional vertigo due to bilateral vestibular disorder Onset Date: ~11/01/18 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 Onset Date: ~05/14/19 Dry eye syndrome of both lacrimal glands Onset Date: ~04/18/19 History of transient ischemic attack and cerebral infarction Onset Date: ~11/01/18 Hypertension, essential Onset Date: ~11/01/18 Hypertensive retinopathy of both eyes Onset Date: ~04/18/19 Hypothyroidism Onset Date: ~11/01/18 Morbid (severe) obesity due to excess calories Onset Date: ~11/19/18 Muscle wasting and atrophy, not elsewhere classified, multiple sites Onset Date: ~04/18/19 Non-pressure chronic ulcer of right lower leg with fat layer exposed Onset Date: Unknown Oral phase dysphagia Onset Date: ~05/14/19 Peripheral venous insufficiency Onset Date: ~11/01/18 Pulmonary embolism Onset Date: ~11/01/18 Pure hypercholesterolemia Onset Date: ~11/01/18 Sepsis Onset Date: Unknown 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) Onset Date: 04/18/19 Stasis ulcer of lower extremity Onset Date: Unknown Unspecified asthma, uncomplicated Onset Date: ~11/01/18 Weakness Onset Date: ~05/14/19 Anemia Onset Date: Unknown Asthma Onset Date: Unknown Atrial fibrillation and flutter Onset Date: Unknown CVA (cerebral vascular accident) Onset Date: Unknown HTN (hypertension) Onset Date: Unknown History of pulmonary embolus (PE) Onset Date: Unknown Hypothyroidism (acquired) Onset Date: Unknown Lymphedema of leg Onset Date: Unknown Morbid obesity with BMI of 50.0-59.9, adult Onset Date: Unknown Rheumatoid arthritis Onset Date: Unknown Venous insufficiency (chronic) (peripheral) Onset Date: Unknown BPPV (benign paroxysmal positional vertigo) Onset Date: Unknown Cellulitis Onset Date: Unknown right leg Dysuria Onset Date: Unknown H/O hyperkalemia Onset Date: Unknown History of CVA (cerebrovascular accident) Onset Date: Unknown Hypercholesteremia Onset Date: Unknown Surgical History: Surgical History (Last Reviewed 09/20/19 @ 04:57 by Manan Blair MD) Gastrostomy status Onset Date: ~04/18/19 History of incision and drainage Onset Date: ~09/17/18 right thigh mass Family History: Family History (Last Reviewed 09/20/19 @ 05:09 by Haley Kidd RN) Mother Coronary artery disease Father Diabetes Sister Cancer breast Coronary artery disease Social History: (Last Reviewed 09/20/19 @ 05:10 by Haley Kidd RN) Social History: current occupational status: retired Service: No Tobacco: Smoking Status: Former smoker Alcohol: alcohol intake: never Substance Use: substance use type: does not use Dietary Habits: caffeine: Yes Physical Exam - Physical Exam General Appearance: Present: moderate distress, lethargic, obese Head Exam: Present: normal inspection Eye Exam: Normal inspection: bilateral Ears, Nose, Throat: Present: dry mucous membranes, other - Poor dentition tongue dry, gauze in her mouth old blood Neck: Present: normal inspection Respiratory: Present: no respiratory distress Cardiovascular/Chest: Present: regular rate, rhythm, no murmur Gastrointestinal/Abdominal: Present: normal bowel sounds, nontender, nondistended, soft, other - Some red sores on the buttock area Back Exam: Present: normal inspection Extremity Exam: Present: normal inspection Neurological Exam: Present: motor weakness, disoriented to person, disoriented to time, disoriented to place, disoriented to situation, other - Confused Skin Exam: Present: warm/dry Lymphatic Exam: Present: no adenopathy Progress - Results and Orders Patient's Lab Results:: I have reviewed the patient's lab results. Results and Orders: Laboratory Tests 09/20/19 05:35 WBC 8.5 RBC 3.72 L Hgb 12.0 L Hct 40.0 MCV 107.5 H MCH 32.3 H MCHC 30.0 L RDW 15.0 H Plt Count 108 L Laboratory Tests 09/20/19 05:15 Urine Color Yellow Urine Appearance Cloudy Urine pH 6.0 Ur Specific [place] <=1.005 Urine Protein Negative Urine Glucose (UA) >=1000 H Urine Ketones Negative Urine Blood 250 H Urine Nitrate Negative Urine Bilirubin Negative Urine Urobilinogen Normal Ur Leukocyte Esterase Negative Urine RBC >50 H Urine WBC Trace H Ur Epithelial Cells None seen Urine Bacteria Trace Urine Culture Comments Culture to follow Laboratory Tests 09/20/19 05:35 Troponin I 0.020 Laboratory Tests 09/20/19 05:35 Lactic Acid, Venous 4.5 H* Laboratory Tests 09/20/19 05:35 Sodium 146 H Plasma Sodium 165 H* Potassium 4.9 H Chloride 113 H Carbon Dioxide 25.1 Anion Gap 12.8 BUN 93 H Creatinine 3.20 H D Est GFR (Non-Af Amer) 18 L D BUN/Creatinine Ratio 29.1 H Random Glucose 1261 H Calcium 8.7 Calcium Adj for Albumin 10.1 Total Bilirubin 0.3 AST 31 ALT 40 Alkaline Phosphatase 146 Troponin I 0.020 B-Natriuretic Peptide 4503 H Total Protein 8.5 H Albumin 1.8 L - Vital Signs Patient's Vital Signs:: I have reviewed the patient's vital signs. Vital Signs: Blood pressure slightly elevated but no fever or other vital signs normal - EKG EKG #1 EKG: atrial fibrillation EKG read: Interp. by me EKG Comments: Atrial fibrillation heart rate [address] deviation and T wave abnormality in the anterior leads V1 through V60 - X-Ray X-Ray #1 X-Ray: chest Interpretation: Interp. by me X-ray Comments: 4 no acute disease Plan - Plan Plan: Insulin drip started ,clindamycin started ,patient's sugar is significantly high ,think the infection is probably in her mouth and also possibly skin Plan is to admit patient to Dr. Martinez Departure Clinical Impression: Hyperosmolar non-ketotic state due to type 2 diabetes mellitus, Dental infection, Renal insufficiency - Departure Disposition: Short Term Hospital Inpatient Condition: Fair Referrals: Duarte Metcalf MD [Primary Care Provider] -
[2019-09-20 05:37] LABS: Mean Cell Volume 107.5 fl (78-100); Mean Corpuscular Hemoglobin 32.3 pg (27-31); Neutrophil # 4.7 K/mm3 (1.3-6.0); Neutrophil % 55.1 % (42-75.0); Platelet Count 108 K/mm3 (150-450); Red Blood Count 3.72 M/mm3 (4.2-5.4); White Blood Count 8.5 K/mm3 (4.0-10.5)
[2019-09-20 05:42] LABS: Urine Bilirubin Negative (NEGATIVE); Urine Blood 250 /ul (NEGATIVE); Urine Ketone Negative (NEGATIVE); Urine Nitrite Negative (NEGATIVE); Urine Protein Negative (NEGATIVE); Urine Specific Gravity <=1.005 SP.GR. (1.005-1.010); Urine Urobilinogen Normal (NORMAL)
[2019-09-20 05:52] LABS: Urine Appearance Cloudy (CLEAR); Urine Color Yellow
[2019-09-20 05:53] LABS: Urine Bacteria TRACE; Urine RBC >50 /hpf (0-5); Urine WBC TRACE /hpf (0-5)
[2019-09-20 05:55] LABS: Troponin I 0.02 ng/mL (0.00-0.10)
[2019-09-20] MEDS ORDERED: INSULIN REGULAR, HUMAN 100 UNITS in NORMAL SALINE 100 ML IV PRN ×2 (06:08)
[2019-09-20 06:13] LABS: Albumin * 1.8 gm/dl (3.4-5.0); Anion Gap 12.8 mmol/L (6.8-13.8); BUN/Creatinine Ratio 29.1 (9.0-21.6); Bilirubin, Total 0.3 mg/dL (0.0-1.1); Ca. Corrected For Albumin 10.1 mg/dL (8.4-10.2); Calcium * 8.7 mg/dL (7.9-10.9); Carbon Dioxide 25.1 mmol/L (24-32.6); Potassium 4.9 mmol/L (3.4-4.6); Total Protein 8.5 gm/dL (6.2-8.2)
[2019-09-20] MEDS: CLINDAMYCIN IN 0.9 % SOD CHLOR 600 MG/50 ML BAG IV SCH ×4 (06:40→23:18)
[2019-09-20] MEDS ORDERED: ONDANSETRON HCL/PF 2 MG/ML VIAL IV PRN (09:50)
[2019-09-20] MEDS ORDERED: SENNOSIDES/DOCUSATE SODIUM 1 TAB TABLET GT PRN (10:44)
[2019-09-20] MEDS ORDERED: ALBUTEROL SULFATE 2.5 MG/0.5 ML VIAL.NEB IH PRN (10:44)
[2019-09-20] MEDS ORDERED: ACETAMINOPHEN 325 MG TABLET GT PRN (10:44)
[2019-09-20] MEDS ORDERED: KETOROLAC TROMETHAMINE 30 MG/ML VIAL IV SCH (10:45)
[2019-09-20] MEDS ORDERED: ENTERAL NUTRITION FORMULA GT SCH (11:00)
[2019-09-20] MEDS ORDERED: [UNRECOGNIZED DRUG - OTHER] GT SCH (11:00)
[2019-09-20] MEDS: LORAZEPAM 2 MG/ML ORAL.CONC PO SCH ×4 (11:14→23:14)
[2019-09-20] MEDS: KETOROLAC TROMETHAMINE 15 MG/ML VIAL IV SCH ×3 (11:30→23:14)
[2019-09-20] MEDS: CARVEDILOL 3.125 MG TABLET GT SCH ×2 (11:39→20:11)
[2019-09-20] MEDS: APIXABAN 5 MG TABLET GT SCH ×2 (11:39→20:10)
[2019-09-20] MEDS: LEVOTHYROXINE SODIUM 50 MCG TABLET GT SCH (11:40)
[2019-09-20] MEDS: FOLIC ACID 1 MG TABLET GT SCH (11:40)
[2019-09-20] MEDS: OMEPRAZOLE 2 MG/ML BTL GT SCH (11:41)
[2019-09-20] MEDS: DILTIAZEM HCL 60 MG TABLET GT SCH ×3 (14:22→20:12)
[2019-09-20] MEDS: INSULIN LISPRO 100 UNITS/ML VIAL SC SCH ×3 (17:14→23:15)
[2019-09-20] MEDS: ROSUVASTATIN CALCIUM 20 MG TABLET GT SCH (20:10)
--- NOTE | 2019-09-20 23:14 | HP ---
Chief Complaint - Chief Complaint Date of Service: 09/20/19 Time of Service: 12:20 Chief Complaint: Elevated blood sugars History of Present Illness: Citlali is a 73 yo female with history of severe CVA. She is on tube feeds, does not communicate, or follow commands. She has recently been running high blood sugars but has not been on insulin other than in the hospital previously. [facility] the [facility] and blood sugar monitoring was recording to high to count. She has been having mouth discomfort and was found to have an infection and started on amoxicillin. Citlali was sent to the [facility] ER due to continued elevated sugars. 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 Onset Date: ~05/14/19 Dry eye syndrome of both lacrimal glands Onset Date: ~04/18/19 History of transient ischemic attack and cerebral infarction Onset Date: ~11/01/18 Hypertension, essential Onset Date: ~11/01/18 Hypertensive retinopathy of both eyes Onset Date: ~04/18/19 Hypothyroidism Onset Date: ~11/01/18 Morbid (severe) obesity due to excess calories Onset Date: ~11/19/18 Muscle wasting and atrophy, not elsewhere classified, multiple sites Onset Date: ~04/18/19 Non-pressure chronic ulcer of right lower leg with fat layer exposed Onset Date: Unknown Oral phase dysphagia Onset Date: ~05/14/19 Peripheral venous insufficiency Onset Date: ~11/01/18 Pulmonary embolism Onset Date: ~11/01/18 Pure hypercholesterolemia Onset Date: ~11/01/18 Sepsis Onset Date: Unknown 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) Onset Date: 04/18/19 Stasis ulcer of lower extremity Onset Date: Unknown Unspecified asthma, uncomplicated Onset Date: ~11/01/18 Weakness Onset Date: ~05/14/19 Anemia Onset Date: Unknown Asthma Onset Date: Unknown Atrial fibrillation and flutter Onset Date: Unknown CVA (cerebral vascular accident) Onset Date: Unknown HTN (hypertension) Onset Date: Unknown History of pulmonary embolus (PE) Onset Date: Unknown Hypothyroidism (acquired) Onset Date: Unknown Lymphedema of leg Onset Date: Unknown Morbid obesity with BMI of 50.0-59.9, adult Onset Date: Unknown Rheumatoid arthritis Onset Date: Unknown Venous insufficiency (chronic) (peripheral) Onset Date: Unknown BPPV (benign paroxysmal positional vertigo) Onset Date: Unknown Cellulitis Onset Date: Unknown right leg Dysuria Onset Date: Unknown H/O hyperkalemia Onset Date: Unknown History of CVA (cerebrovascular accident) Onset Date: Unknown Hypercholesteremia Onset Date: Unknown Surgical History: Surgical History (Last Reviewed 09/20/19 @ 10:13 by Kassandra Sears RN) Gastrostomy status Onset Date: ~04/18/19 History of incision and drainage Onset Date: ~09/17/18 right thigh mass Family History: Family History (Last Reviewed 09/20/19 @ 10:13 by Kassandra Sears RN) Mother Coronary artery disease Father Diabetes Sister Cancer breast Coronary artery disease Social History: (Last Reviewed 09/20/19 @ 10:13 by Kassandra Sears RN) Social History: current occupational status: retired Service: No Tobacco: Smoking Status: Former smoker Alcohol: alcohol intake: never Substance Use: substance use type: does not use Dietary Habits: caffeine: Yes Review Of Systems (GEN) - Review of Systems Additional Comments: unable to perform due to patient condition Immunizations: IMMUNIZATION HX Immunizations Up to Date Yes History of Influenza Vaccine Yes Hx Pneumococcal Vaccination Yes Allergies/Adverse Reactions: Allergies Allergy/AdvReac Type Severity Reaction Status Date / Time No Known Allergies Allergy Verified 09/20/19 10:14 Home Medications: HOME MEDICATIONS albuterol sulfate 90 mcg/actuation aerosol inhaler 2 inh IH Q4H PRN 10/31/18 [Last Taken Unknown] atorvastatin 40 mg tablet 40 mg GT DAILY 05/13/19 [Last Taken Unknown] carvedilol 3.125 mg tablet 3.125 mg GT BID 05/13/19 [Last Taken Unknown] diltiazem HCl 240 mg capsule,extended release 24 hr 240 mg GT DAILY 05/13/19 [Last Taken Unknown] folic acid 1 mg tablet 1 mg GT DAILY 05/13/19 [Last Taken Unknown] omeprazole magnesium 2.5 mg oral suspension,delayed release 40 mg GT DAILY 05/13/19 [Last Taken Unknown] senna-docusate sodium 2 each GT BID PRN #0 tab 05/13/19 [Last Taken Unknown] Acetaminophen [Tylenol] 325 mg GT QID PRN 06/09/19 [Last Taken Unknown] cyanocobalamin (vitamin B-12) 1,000 mcg/mL oral drops 1 ml PO DAILY #60 ml 06/26/19 [Last Taken Unknown] amoxicillin 400 mg/5 mL oral suspension 500 mg FEEDING TUBE BID 10 Days #125 ml 09/12/19 [Last Taken Unknown] Apixaban [Eliquis] 5 mg GT BID 09/14/19 [Last Taken Unknown] Lactose-Reduced Food/Fiber [Jevity 1.2 Cody Liquid] 75 ml GT DAILY 09/14/19 [Last Taken Unknown] Levothyroxine Sodium [Synthroid] 50 mcg GT DAILY 09/14/19 [Last Taken Unknown] Lorazepam 0.5 mg PO Q4H 09/14/19 [Last Taken Unknown] Whey Protein/Arginine/C/E/Zinc [Arginaid Extra Liquid] 227 ml GT DAILY 09/14/19 [Last Taken Unknown] Aspirin [Aspirin Chewable] 81 mg GT DAILY 09/20/19 [Last Taken Unknown] Cyanocobalamin (Vitamin B-12) [Vitamin B-12] 1,000 mcg GT DAILY 09/20/19 [Last Taken Unknown] Nystatin 15 gm TOPICAL DAILY PRN 09/20/19 [Last Taken Unknown] Exam - Exam Vital Signs: Vital Signs - Last Taken Temp 36.3 C 09/20/19 22:12 Pulse 78 09/20/19 22:12 Resp 18 09/20/19 22:12 BP 127/64 09/20/19 22:12 Pulse Ox 99 09/20/19 22:12 Constitutional: Present: Alert. Absent: Oriented x3, No distress Respiratory: Present: lungs clear, normal breath sounds Cardiovascular/Chest: Present: regular rate, rhythm, no edema, no murmur Abdomen: Present: Normal bowel sounds, soft, other - G tube Neurologic: Present: aphasia, disoriented x 3, other - makes grunting, does not follow commands or speak Diagnostic Studies: Abnormal Lab Results 09/20/19 09/20/19 09/20/19 Range/Units 05:15 05:35 05:35 RBC 3.72 L (4.2-5.4) M/mm3 Hgb 12.0 L (12.5-16.0) gm/dL MCV 107.5 H (78-100) fl MCH 32.3 H (27-31) pg MCHC 30.0 L (32-36) g/dl RDW 15.0 H (11.5-14.0) % Plt Count 108 L (150-450) K/mm3 Sodium 146 H (132-142) mmol/L Plasma Sodium 165 H* (130-142) mmol/L Potassium 4.9 H (3.4-4.6) mmol/L Chloride 113 H (97-106) mmol/L BUN 93 H (3-23) mg/dL Creatinine 3.20 H D (0.4-1.4) mg/dL Est GFR (Non-Af Amer) 18 L D (60-130) mL/min BUN/Creatinine Ratio 29.1 H (9.0-21.6) Random Glucose 1261 H (70-110) mg/dL Lactic Acid, Venous (0.4-2.0) mmol/L B-Natriuretic Peptide 4503 H (5-325) pg/mL Total Protein 8.5 H (6.2-8.2) gm/dL Albumin 1.8 L (3.4-5.0) gm/dl Urine Glucose (UA) >=1000 H (NEGATIVE) mg/dL Urine Blood 250 H (NEGATIVE) /ul Urine RBC >50 H (0-5) /hpf Urine WBC Trace H (0-5) /hpf 09/20/19 09/20/19 Range/Units 05:35 08:30 RBC (4.2-5.4) M/mm3 Hgb (12.5-16.0) gm/dL MCV (78-100) fl MCH (27-31) pg MCHC (32-36) g/dl RDW (11.5-14.0) % Plt Count (150-450) K/mm3 Sodium (132-142) mmol/L Plasma Sodium (130-142) mmol/L Potassium (3.4-4.6) mmol/L Chloride (97-106) mmol/L BUN (3-23) mg/dL Creatinine (0.4-1.4) mg/dL Est GFR (Non-Af Amer) (60-130) mL/min BUN/Creatinine Ratio (9.0-21.6) Random Glucose (70-110) mg/dL Lactic Acid, Venous 4.5 H* 5.2 H* (0.4-2.0) mmol/L B-Natriuretic Peptide (5-325) pg/mL Total Protein (6.2-8.2) gm/dL Albumin (3.4-5.0) gm/dl Urine Glucose (UA) (NEGATIVE) mg/dL Urine Blood (NEGATIVE) /ul Urine RBC (0-5) /hpf Urine WBC (0-5) /hpf Laboratory Results WBC 8.5 K/mm3 (4.0-10.5) 09/20/19 05:35 RBC 3.72 M/mm3 (4.2-5.4) L 09/20/19 05:35 Hgb 12.0 gm/dL (12.5-16.0) L 09/20/19 05:35 Hct 40.0 % (37.0-47.0) 09/20/19 05:35 MCV 107.5 fl (78-100) H 09/20/19 05:35 MCH 32.3 pg (27-31) H 09/20/19 05:35 MCHC 30.0 g/dl (32-36) L 09/20/19 05:35 RDW 15.0 % (11.5-14.0) H 09/20/19 05:35 Plt Count 108 K/mm3 (150-450) L 09/20/19 05:35 MPV TNP 09/20/19 05:35 Immature Gran % (Auto) 0.40 % (0.001-0.429) 09/20/19 05:35 Immature Gran # (Auto) 0.03 K/mm3 (0.000-0.0310) 09/20/19 05:35 Neutrophils % 55.1 % (42-75.0) 09/20/19 05:35 Lymphocytes % 36.9 % (20-51) 09/20/19 05:35 Monocytes % 5.7 % (0.0-9) 09/20/19 05:35 Eosinophils % 1.4 % (0.0-3.0) 09/20/19 05:35 Basophils % 0.5 % (0.0-1.0) 09/20/19 05:35 Nucleated RBC % 0.0 k/mm3 (0-1) 09/20/19 05:35 Neutrophils # 4.7 K/mm3 (1.3-6.0) 09/20/19 05:35 Lymphocytes # 3.13 k/mm3 (1.5-3.5) 09/20/19 05:35 Monocytes # 0.5 k/mm3 (0.0-1.0) 09/20/19 05:35 Eosinophils # 0.1 k/mm3 (0.0-0.7) 09/20/19 05:35 Absolute Basophils 0.0 k/mm3 (0.0-0.1) 09/20/19 05:35 Sodium 146 mmol/L (132-142) H 09/20/19 05:35 Plasma Sodium 165 mmol/L (130-142) H* 09/20/19 05:35 Potassium 4.9 mmol/L (3.4-4.6) H 09/20/19 05:35 Chloride 113 mmol/L (97-106) H 09/20/19 05:35 Carbon Dioxide 25.1 mmol/L (24-32.6) 09/20/19 05:35 Anion Gap 12.8 mmol/L (6.8-13.8) 09/20/19 05:35 BUN 93 mg/dL (3-23) H 09/20/19 05:35 Creatinine 3.20 mg/dL (0.4-1.4) H D 09/20/19 05:35 Est GFR (Non-Af Amer) 18 mL/min (60-130) L D 09/20/19 05:35 BUN/Creatinine Ratio 29.1 (9.0-21.6) H 09/20/19 05:35 Random Glucose 1261 mg/dL (70-110) H 09/20/19 05:35 Lactic Acid, Venous 5.2 mmol/L (0.4-2.0) H* 09/20/19 08:30 Calcium 8.7 mg/dL (7.9-10.9) 09/20/19 05:35 Calcium Adj for Albumin 10.1 mg/dL (8.4-10.2) 09/20/19 05:35 Total Bilirubin 0.3 mg/dL (0.0-1.1) 09/20/19 05:35 AST 31 U/L (0-48) 09/20/19 05:35 ALT 40 U/L (19-67) 09/20/19 05:35 Alkaline Phosphatase 146 U/L (50-170) 09/20/19 05:35 Troponin I 0.020 ng/mL (0.00-0.10) 09/20/19 05:35 B-Natriuretic Peptide 4503 pg/mL (5-325) H 09/20/19 05:35 Total Protein 8.5 gm/dL (6.2-8.2) H 09/20/19 05:35 Albumin 1.8 gm/dl (3.4-5.0) L 09/20/19 05:35 Urine Color Yellow 09/20/19 05:15 Urine Appearance Cloudy (CLEAR) 09/20/19 05:15 Urine pH 6.0 pH (5.0-7.0) 09/20/19 05:15 Ur Specific [place] <=1.005 SP.GR. (1.005-1.010) 09/20/19 05:15 Urine Protein Negative mg/dL (NEGATIVE) 09/20/19 05:15 Urine Glucose (UA) >=1000 mg/dL (NEGATIVE) H 09/20/19 05:15 Urine Ketones Negative mg/dL (NEGATIVE) 09/20/19 05:15 Urine Blood 250 /ul (NEGATIVE) H 09/20/19 05:15 Urine Nitrate Negative (NEGATIVE) 09/20/19 05:15 Urine Bilirubin Negative mg/dl (NEGATIVE) 09/20/19 05:15 Urine Urobilinogen Normal EU/dl (NORMAL) 09/20/19 05:15 Ur Leukocyte Esterase Negative /ul (NEGATIVE) 09/20/19 05:15 Urine RBC >50 /hpf (0-5) H 09/20/19 05:15 Urine WBC Trace /hpf (0-5) H 09/20/19 05:15 Ur Epithelial Cells None seen /hpf (0-5) 09/20/19 05:15 Urine Bacteria Trace (NONE) 09/20/19 05:15 Urine Culture Comments Culture to follow 09/20/19 05:15 Assessment/Plan - Narrative Narrative: Citlali will be admitted for hyperglycemic likely hyperosmolar nonketotic state. Blood sugars are [address] on IV insulin drip and titrate to control sugars. Will place on clindamycin IV for her oral infection. Will take >2 midnights to control sugars and correct electrolyte imbalance. Hypernatremia will correct as sugars are treated.. - Assessment/Plan (1) Hyperosmolar non-ketotic state due to type 2 diabetes mellitus Problem: Acute (2) Diabetes mellitus, new onset Problem: Acute (3) Cerebral infarction Problem: Chronic Qualifiers: Cerebral infarction mechanism: embolism Precerebral and cerebral artery: unspecified precerebral artery Qualified Code(s): I63.10 - Cerebral infarction due to embolism of unspecified precerebral artery (4) Oral infection Problem: Acute (5) Hypernatremia Problem: Acute
[2019-09-21] MEDS: INSULIN LISPRO 100 UNITS/ML VIAL SC SCH ×8 (03:02→23:56)
[2019-09-21] MEDS: LORAZEPAM 2 MG/ML ORAL.CONC PO SCH ×6 (03:04→23:55)
[2019-09-21] MEDS: KETOROLAC TROMETHAMINE 15 MG/ML VIAL IV SCH ×3 (04:52→17:46)
[2019-09-21] MEDS: LEVOTHYROXINE SODIUM 50 MCG TABLET GT SCH (06:54)
[2019-09-21] MEDS: CLINDAMYCIN IN 0.9 % SOD CHLOR 600 MG/50 ML BAG IV SCH ×2 (06:54→15:00)
[2019-09-21] MEDS: FOLIC ACID 1 MG TABLET GT SCH (08:48)
[2019-09-21] MEDS: APIXABAN 5 MG TABLET GT SCH ×2 (08:48→20:00)
[2019-09-21] MEDS: CARVEDILOL 3.125 MG TABLET GT SCH ×2 (08:48→20:00)
[2019-09-21] MEDS: DILTIAZEM HCL 60 MG TABLET GT SCH ×4 (08:50→20:00)
[2019-09-21] MEDS: OMEPRAZOLE 2 MG/ML BTL GT SCH (08:51)
[2019-09-21] MEDS: NYSTATIN 15 APPL BTL TP PRN (08:52)
[2019-09-21] MEDS: ROSUVASTATIN CALCIUM 20 MG TABLET GT SCH (20:00)
--- NOTE | 2019-09-21 23:56 | PN ---
Subjective - Date and Time Seen Date: 09/21/19 Time: 09:50 Subjective Narrative: Citlali appears calm and pain free, this is an improvement from yesterday. Blood sugars have trended down and are consistently around 200. Currently on sliding scale insulin and off IV drip. No fever, chills, vomiting. Objective - Vitals Vitals: Last Vital Signs Temp 36.1 C 09/21/19 18:30 Pulse 85 09/21/19 20:00 Resp 21 H 09/21/19 18:30 BP 140/59 09/21/19 20:00 Pulse Ox 100 09/21/19 18:30 - Exam Constitutional: Present: Alert, Cooperative. Absent: Oriented x3 Respiratory: Present: lungs clear, normal breath sounds, no respiratory distress Cardiovascular/Chest: Present: regular rate, rhythm, no edema Abdomen: Present: Normal bowel sounds, soft, nontender Skin Exam: Present: normal color, warm/dry, no cyanosis Neurologic: Present: other - Does not communicate due to stroke, does not follow commands Assessment/Plan Plan Narrative: Blood sugars are improved. Will plan to restart tube feeds and start lantus 20 units HS. Will continue sliding scale insulin and adjust lantus. With her continuous tube feeds should be able to control sugars with long acting insulin only. - Problems/Diagnosis (1) Hyperosmolar non-ketotic state due to type 2 diabetes mellitus Problem: Acute (2) Diabetes mellitus, new onset Problem: Acute (3) Cerebral infarction Problem: Chronic Qualifiers: Cerebral infarction mechanism: embolism Precerebral and cerebral artery: unspecified precerebral artery Qualified Code(s): I63.10 - Cerebral infarction due to embolism of unspecified precerebral artery (4) Oral infection Problem: Acute (5) Hypernatremia Problem: Acute
[2019-09-22] MEDS: CLINDAMYCIN IN 0.9 % SOD CHLOR 600 MG/50 ML BAG IV SCH ×4 (00:01→22:55)
[2019-09-22] MEDS: INSULIN LISPRO 100 UNITS/ML VIAL SC SCH ×8 (02:46→22:53)
[2019-09-22] MEDS: LORAZEPAM 2 MG/ML ORAL.CONC PO SCH ×6 (02:46→22:50)
[2019-09-22] MEDS: KETOROLAC TROMETHAMINE 15 MG/ML VIAL IV SCH ×2 (05:39)
[2019-09-22] MEDS: LEVOTHYROXINE SODIUM 50 MCG TABLET GT SCH (06:41)
[2019-09-22 07:25] LABS: Hematocrit 36.6 % (37.0-47.0); Hemoglobin 11.5 gm/dL (12.5-16.0); Mean Cell Volume 103.4 fl (78-100); Mean Corpuscular Hemoglobin 32.5 pg (27-31); Mean Corpuscular Hgb Conc 31.4 g/dl (32-36); Neutrophil # 4.1 K/mm3 (1.3-6.0); Neutrophil % 52.2 % (42-75.0); Platelet Count 102 K/mm3 (150-450); Red Blood Count 3.54 M/mm3 (4.2-5.4); Red Cell Distribution Width 14.6 % (11.5-14.0); White Blood Count 7.9 K/mm3 (4.0-10.5)
[2019-09-22 07:32] LABS: Albumin * 1.4 gm/dl (3.4-5.0); BUN/Creatinine Ratio 26.1 (9.0-21.6); Bilirubin, Total 0.3 mg/dL (0.0-1.1); Ca. Corrected For Albumin 10.1 mg/dL (8.4-10.2); Calcium * 8.3 mg/dL (7.9-10.9); Carbon Dioxide 24.9 mmol/L (24-32.6); Potassium 3.9 mmol/L (3.4-4.6); Total Protein 7.2 gm/dL (6.2-8.2)
[2019-09-22] MEDS: DILTIAZEM HCL 60 MG TABLET GT SCH ×4 (08:44→20:07)
[2019-09-22] MEDS: CARVEDILOL 3.125 MG TABLET GT SCH ×2 (08:45→20:07)
[2019-09-22] MEDS: FOLIC ACID 1 MG TABLET GT SCH (08:45)
[2019-09-22] MEDS: APIXABAN 5 MG TABLET GT SCH ×2 (08:45→20:07)
[2019-09-22] MEDS: OMEPRAZOLE 2 MG/ML BTL GT SCH (08:48)
[2019-09-22] MEDS ORDERED: FOSFOMYCIN TROMETHAMINE 3 GM PACKET GT ONE (11:00)
[2019-09-22] MEDS: INSULIN GLARGINE,HUM.REC.ANLOG 100 UNITS/ML VIAL SC SCH ×2 (20:04)
[2019-09-22] MEDS: ROSUVASTATIN CALCIUM 20 MG TABLET GT SCH (20:06)
--- NOTE | 2019-09-22 23:57 | PN ---
Subjective - Date and Time Seen Date: 09/22/19 Time: 23:53 Subjective Narrative: Citlali is calm and in no distress. She does not communicate king to chronic stroke. Blood sugars range in 300s. Urine growing ESBL. Objective - Vitals Vitals: Last Vital Signs Temp 36.3 C 09/22/19 21:00 Pulse 81 09/22/19 21:00 Resp 24 H 09/22/19 21:00 BP 128/56 09/22/19 21:00 Pulse Ox 100 09/22/19 21:00 - Abnormal Lab Findings Abnormal Lab Findings: Abnormal Lab Results 09/22/19 09/22/19 Range/Units 07:14 07:14 RBC 3.54 L (4.2-5.4) M/mm3 Hgb 11.5 L (12.5-16.0) gm/dL Hct 36.6 L (37.0-47.0) % MCV 103.4 H (78-100) fl MCH 32.5 H (27-31) pg MCHC 31.4 L (32-36) g/dl RDW 14.6 H (11.5-14.0) % Plt Count 102 L (150-450) K/mm3 Eosinophils % 4.6 H (0.0-3.0) % Sodium 151 H (132-142) mmol/L Plasma Sodium 155 H (130-142) mmol/L Chloride 118 H (97-106) mmol/L BUN 79 H (3-23) mg/dL Creatinine 3.03 H (0.4-1.4) mg/dL Est GFR (Non-Af Amer) 19 L (60-130) mL/min BUN/Creatinine Ratio 26.1 H (9.0-21.6) Random Glucose 335 H D (70-110) mg/dL Albumin 1.4 L (3.4-5.0) gm/dl - Exam Constitutional: Present: Alert. Absent: Oriented x3 Respiratory: Present: lungs clear, normal breath sounds Cardiovascular/Chest: Present: regular rate, rhythm, no murmur Abdomen: Present: Normal bowel sounds, soft, nontender, nondistended Skin Exam: Present: normal color, warm/dry, no cyanosis Assessment/Plan Plan Narrative: Urine culture growing ESBL. Will treat with fosfomycin. Glucose remains elevated. Will increase lantus to 20 units BID and continue sliding scale humalog. Citlali appears comfortable. - Problems/Diagnosis (1) Hyperosmolar non-ketotic state due to type 2 diabetes mellitus Problem: Acute (2) Diabetes mellitus, new onset Problem: Acute (3) Cerebral infarction Problem: Chronic Qualifiers: Cerebral infarction mechanism: embolism Precerebral and cerebral artery: unspecified precerebral artery Qualified Code(s): I63.10 - Cerebral infarction due to embolism of unspecified precerebral artery (4) Oral infection Problem: Acute (5) Hypernatremia Problem: Acute (6) ESBL (extended spectrum beta-lactamase) producing bacteria infection Problem: Acute (7) UTI (urinary tract infection) Problem: Acute
[2019-09-23] MEDS: INSULIN LISPRO 100 UNITS/ML VIAL SC SCH ×8 (02:18→23:41)
[2019-09-23] MEDS: LORAZEPAM 2 MG/ML ORAL.CONC PO SCH ×6 (02:21→23:41)
[2019-09-23 06:44] LABS: Hematocrit 34.8 % (37.0-47.0); Mean Cell Volume 101.8 fl (78-100); Mean Corpuscular Hemoglobin 32.2 pg (27-31); Mean Corpuscular Hgb Conc 31.6 g/dl (32-36); Neutrophil % 58.9 % (42-75.0); Platelet Count 105 K/mm3 (150-450); Red Blood Count 3.42 M/mm3 (4.2-5.4); Red Cell Distribution Width 14.7 % (11.5-14.0); White Blood Count 8.4 K/mm3 (4.0-10.5)
[2019-09-23 06:47] LABS: Albumin * 1.5 gm/dl (3.4-5.0); Anion Gap 13.6 mmol/L (6.8-13.8); BUN/Creatinine Ratio 24.6 (9.0-21.6); Bilirubin, Total 0.3 mg/dL (0.0-1.1); Ca. Corrected For Albumin 9.7 mg/dL (8.4-10.2); Carbon Dioxide 23.2 mmol/L (24-32.6); Potassium 3.8 mmol/L (3.4-4.6); Total Protein 7.3 gm/dL (6.2-8.2)
[2019-09-23] MEDS: LEVOTHYROXINE SODIUM 50 MCG TABLET GT SCH (06:55)
[2019-09-23] MEDS: CLINDAMYCIN IN 0.9 % SOD CHLOR 600 MG/50 ML BAG IV SCH ×3 (06:55→23:41)
[2019-09-23] MEDS ORDERED: INSULIN GLARGINE,HUM.REC.ANLOG 100 UNITS/ML VIAL SC SCH ×2 (09:00→21:00)
[2019-09-23] MEDS: CARVEDILOL 3.125 MG TABLET GT SCH ×2 (09:16→20:16)
[2019-09-23] MEDS: DILTIAZEM HCL 60 MG TABLET GT SCH ×4 (09:16→20:16)
[2019-09-23] MEDS: APIXABAN 5 MG TABLET GT SCH ×2 (09:16→20:15)
[2019-09-23] MEDS: FOLIC ACID 1 MG TABLET GT SCH (09:16)
[2019-09-23] MEDS: OMEPRAZOLE 2 MG/ML BTL GT SCH (09:28)
[2019-09-23] MEDS: COLLAGENASE CLOSTRIDIUM HIST. 30 APPL TUBE TP SCH (12:17)
--- NOTE | 2019-09-23 14:52 | CONS ---
HPI - General Date of Service: 09/23/19 Source: RN notes reviewed - History of Present Illness Initial Comments: Patient is a 73-year-old female, who presented to the emergency department on 09/20/2019, due to elevated blood sugars. She resides at the [facility]. At admission, her blood sugar was 1261 and her albumin was 1.8. It was also determined that she had an infection in her mouth. Patient had a severe CVA, and is unable to give any history, as she does not communicate in any way. Review of nursing notes indicates constant loose stools. Her medical history is lengthy, however notable for anemia, atrial fibrillation, CVA, hypertension, morbid obesity, peripheral vascular insufficiency, pulmonary embolism, sepsis and rheumatoid arthritis. Timing/Duration: unsure Allergies/Adverse Reactions: Allergies No Known Allergies Allergy (Verified 09/20/19 10:14) Home Medications: Home Medications Medication Instructions Recorded Last Taken albuterol sulfate 90 mcg/actuation 2 inh IH Q4H PRN 10/31/18 Unknown aerosol inhaler atorvastatin 40 mg tablet 40 mg GT DAILY 05/13/19 Unknown carvedilol 3.125 mg tablet 3.125 mg GT BID 05/13/19 Unknown diltiazem HCl 240 mg 240 mg GT DAILY 05/13/19 Unknown capsule,extended release 24 hr folic acid 1 mg tablet 1 mg GT DAILY 05/13/19 Unknown senna-docusate sodium 2 each GT BID PRN #0 tab 05/13/19 Unknown Acetaminophen [Tylenol] 325 mg GT QID PRN 06/09/19 Unknown cyanocobalamin (vitamin B-12) 1 ml PO DAILY #60 ml 06/26/19 Unknown 1,000 mcg/mL oral drops amoxicillin 400 mg/5 mL oral 500 mg FEEDING TUBE BID 10 Days 09/12/19 Unknown suspension #125 ml Apixaban [Eliquis] 5 mg GT BID 09/14/19 Unknown Lactose-Reduced Food/Fiber [Jevity 75 ml GT DAILY 09/14/19 Unknown 1.2 Cody Liquid] Levothyroxine Sodium [Synthroid] 50 mcg GT DAILY 09/14/19 Unknown Lorazepam 0.5 mg PO Q4H 09/14/19 Unknown Whey Protein/Arginine/C/E/Zinc 227 ml GT DAILY 09/14/19 Unknown [Arginaid Extra Liquid] Aspirin [Aspirin Chewable] 81 mg GT DAILY 09/20/19 Unknown Cyanocobalamin (Vitamin B-12) 1,000 mcg GT DAILY 09/20/19 Unknown [Vitamin B-12] Nystatin 15 gm TOPICAL DAILY PRN 09/20/19 Unknown Omeprazole Suspension 10 ml GT DAILY 09/23/19 Unknown Medications - Medications Current Medications: Current Medications Apixaban (Eliquis) 5 mg GT BID [facility] Stop: 10/20/19 10:46 Last Admin: 09/23/19 09:16 Dose: 5 mg Documented by: Carvedilol (Coreg) 3.125 mg GT BID [facility] Stop: 10/20/19 11:01 Last Admin: 09/23/19 09:16 Dose: 3.125 mg Documented by: Collagenase (Santyl) 1 appl TP DAILY [facility] Stop: 10/23/19 12:16 Last Admin: 09/23/19 12:17 Dose: 1 appl Documented by: Diltiazem HCl (Cardizem) 60 mg GT QID [facility] Stop: 10/20/19 13:01 Last Admin: 09/23/19 12:07 Dose: 60 mg Documented by: Folic Acid (Folic Acid) 1 mg GT DAILY [facility] Stop: 10/20/19 11:01 Last Admin: 09/23/19 09:16 Dose: 1 mg Documented by: Clindamycin/Sodium Chloride (Cleocin) 600 mg in 50 mls @ 50 mls/hr IV Q8H [facility] Stop: 10/20/19 15:31 Last Infusion: 09/23/19 08:00 Dose: Infused Documented by: Insulin Human Lispro (Humalog) 0 units SC Q3H [facility]; Protocol Stop: 10/20/19 17:01 Last Admin: 09/23/19 12:16 Dose: 24 units Documented by: Levothyroxine Sodium (Synthroid) 50 mcg GT DAILY@0700 [facility] Stop: 10/20/19 11:01 Last Admin: 09/23/19 06:55 Dose: 50 mcg Documented by: Lorazepam (Ativan Intensol) 0.5 mg PO Q4H [facility] Stop: 10/20/19 10:46 Last Admin: 09/23/19 12:04 Dose: 0.5 mg Documented by: Cyanocobalamin 1 ml GT DAILY [facility] Stop: 10/21/19 09:01 Last Admin: 09/23/19 09:16 Dose: Not Given Documented by: Nystatin (Mycostatin Powder) 1 appl TP DAILY PRN PRN Reason: until healed Stop: 10/20/19 10:45 Last Admin: 09/21/19 08:52 Dose: 1 appl Documented by: Omeprazole (Prilosec) 40 mg GT DAILY [facility] Stop: 10/20/19 11:01 Last Admin: 09/23/19 09:28 Dose: 40 mg Documented by: Rosuvastatin Calcium (Crestor) 20 mg GT HS [facility] Stop: 10/20/19 21:01 Last Admin: 09/22/19 20:06 Dose: 20 mg Documented by: Review of Systems - Review of Systems Narrative: Unable to obtain due to patient condition Physical Examination - Exam Vital Signs: Vital Signs - Last Taken Temp 36.6 C 09/23/19 14:22 Pulse 74 09/23/19 14:22 Resp 20 09/23/19 14:22 BP 137/57 09/23/19 14:22 Pulse Ox 100 09/23/19 14:22 O2 Oxygen Delivery Method Room Air Comprehensive Narative: 09/23/19 14:50 Patient does not respond any questions Constitutional: Present: No distress, Lethargic, Morbidly obese Skin Exam: Present: warm/dry, other - There is an area on the sacrum measuring a pproximately 5 cm in circumference consisting of multiple small superficial ulcers. Yellow necrosis is present. Minimal drainage. - Results and Findings: Lab/Microbiology results last 24 hrs: Abnormal/Pending Laboratory Last 24 HRS 09/23/19 09/23/19 06:28 06:28 RBC 3.42 L Hgb 11.0 L Hct 34.8 L MCV 101.8 H MCH 32.2 H MCHC 31.6 L RDW 14.7 H Plt Count 105 L Sodium 150 H Plasma Sodium 154 H Chloride 117 H Carbon Dioxide 23.2 L BUN 75 H Creatinine 3.05 H Est GFR (Non-Af Amer) 19 L BUN/Creatinine Ratio 24.6 H Random Glucose 345 H Albumin 1.5 L - Assessments/Findings (1) Sacral decubitus ulcer, stage II Diagnosis(s): Recommend using Santyl to the open wounds to the sacrum. This will be covered with gauze and secured with tape. The dressing will be changed daily, and as needed. The area should be washed thoroughly with soap and water at dressing changes. Continue with excellent offloading of the sacrum. Problem: Acute
[2019-09-23] MEDS: ROSUVASTATIN CALCIUM 20 MG TABLET GT SCH (20:16)
--- NOTE | 2019-09-23 22:04 | PN ---
Subjective - Date and Time Seen Date: 09/23/19 Time: 11:15 Subjective Narrative: Citlali is calm and without distress. No changes. Blood sugars remain elevated in 300 and 400. Adjusted sliding scale insulin to high and sugars improved to 100s. Pressure ulcers evaluated by wound clinic Objective - Vitals Vitals: Last Vital Signs Temp 36.3 C 09/23/19 20:00 Pulse 88 09/23/19 20:16 Resp 18 09/23/19 20:00 BP 112/48 09/23/19 20:16 Pulse Ox 97 09/23/19 20:00 - Abnormal Lab Findings Abnormal Lab Findings: Abnormal Lab Results 09/23/19 09/23/19 Range/Units 06:28 06:28 RBC 3.42 L (4.2-5.4) M/mm3 Hgb 11.0 L (12.5-16.0) gm/dL Hct 34.8 L (37.0-47.0) % MCV 101.8 H (78-100) fl MCH 32.2 H (27-31) pg MCHC 31.6 L (32-36) g/dl RDW 14.7 H (11.5-14.0) % Plt Count 105 L (150-450) K/mm3 Sodium 150 H (132-142) mmol/L Plasma Sodium 154 H (130-142) mmol/L Chloride 117 H (97-106) mmol/L Carbon Dioxide 23.2 L (24-32.6) mmol/L BUN 75 H (3-23) mg/dL Creatinine 3.05 H (0.4-1.4) mg/dL Est GFR (Non-Af Amer) 19 L (60-130) mL/min BUN/Creatinine Ratio 24.6 H (9.0-21.6) Random Glucose 345 H (70-110) mg/dL Albumin 1.5 L (3.4-5.0) gm/dl - Exam Constitutional: Present: Alert. Absent: Oriented x3 Respiratory: Present: lungs clear, normal breath sounds Cardiovascular/Chest: Present: regular rate, rhythm, no murmur Abdomen: Present: Normal bowel sounds, soft Neurologic: Present: other - does not communicate Assessment/Plan Plan Narrative: Increase lantus to 30 units BID, adjusted sliding scale to high dose. Consulted wound clinic for chronic pressure ulcers. - Problems/Diagnosis (1) Hyperosmolar non-ketotic state due to type 2 diabetes mellitus Problem: Acute (2) Diabetes mellitus, new onset Problem: Acute (3) Cerebral infarction Problem: Chronic Qualifiers: Cerebral infarction mechanism: embolism Precerebral and cerebral artery: unspecified precerebral artery Qualified Code(s): I63.10 - Cerebral infarction due to embolism of unspecified precerebral artery (4) Oral infection Problem: Acute (5) Hypernatremia Problem: Acute (6) ESBL (extended spectrum beta-lactamase) producing bacteria infection Problem: Acute (7) UTI (urinary tract infection) Problem: Acute
[2019-09-24] MEDS: LORAZEPAM 2 MG/ML ORAL.CONC PO SCH ×6 (02:24→23:22)
[2019-09-24] MEDS: INSULIN LISPRO 100 UNITS/ML VIAL SC SCH ×8 (02:25→23:23)
[2019-09-24] MEDS: LEVOTHYROXINE SODIUM 50 MCG TABLET GT SCH (06:48)
[2019-09-24] MEDS: CLINDAMYCIN IN 0.9 % SOD CHLOR 600 MG/50 ML BAG IV SCH ×3 (06:57→23:24)
[2019-09-24] MEDS: NYSTATIN 15 APPL BTL TP PRN (09:13)
[2019-09-24] MEDS: FOLIC ACID 1 MG TABLET GT SCH (09:15)
[2019-09-24] MEDS: APIXABAN 5 MG TABLET GT SCH ×2 (09:15→21:17)
[2019-09-24] MEDS: CARVEDILOL 3.125 MG TABLET GT SCH ×2 (09:15→21:17)
[2019-09-24] MEDS: DILTIAZEM HCL 60 MG TABLET GT SCH ×4 (09:16→21:28)
[2019-09-24] MEDS: COLLAGENASE CLOSTRIDIUM HIST. 30 APPL TUBE TP SCH (09:20)
[2019-09-24] MEDS: INSULIN GLARGINE,HUM.REC.ANLOG 100 UNITS/ML VIAL SC SCH ×2 (09:22→21:18)
[2019-09-24] MEDS: OMEPRAZOLE 2 MG/ML BTL GT SCH (09:27)
[2019-09-24] MEDS: ROSUVASTATIN CALCIUM 20 MG TABLET GT SCH (21:17)
--- NOTE | 2019-09-24 23:36 | PN ---
Subjective - Date and Time Seen Date: 09/24/19 Time: 16:00 Subjective Narrative: No new concerns today. Citlali is calm appears comfortable. No fever, chills, vomiting, or apparent pain. Objective - Vitals Vitals: Last Vital Signs Temp 36.2 C 09/24/19 19:00 Pulse 91 09/24/19 21:28 Resp 18 09/24/19 19:00 BP 154/58 H 09/24/19 21:28 Pulse Ox 96 09/24/19 19:00 - Exam Constitutional: Present: Alert. Absent: Oriented x3 Respiratory: Present: lungs clear, normal breath sounds Cardiovascular/Chest: Present: regular rate, rhythm, systolic murmur - 2+ Abdomen: Present: Normal bowel sounds, soft, nontender, nondistended Skin Exam: Present: other - R buttock pressure ulcer full thickess, L buttock pressure ulcers X 2 full thickness Assessment/Plan Plan Narrative: Wound clinic addressing wounds which were present on admission. Adjust insulin to keep diabetes controlled. Continuing clindamycin for oral infection. Treated UTI with fosfomycin. Sugars are improving gradually. May switch to clinda through G tube tomorrow. Checked for CDIFF today which was negative. - Problems/Diagnosis (1) Hyperosmolar non-ketotic state due to type 2 diabetes mellitus Problem: Acute (2) Diabetes mellitus, new onset Problem: Acute (3) Cerebral infarction Problem: Chronic Qualifiers: Cerebral infarction mechanism: embolism Precerebral and cerebral artery: unspecified precerebral artery Qualified Code(s): I63.10 - Cerebral infarction due to embolism of unspecified precerebral artery (4) Oral infection Problem: Acute (5) Hypernatremia Problem: Acute (6) ESBL (extended spectrum beta-lactamase) producing bacteria infection Problem: Acute (7) UTI (urinary tract infection) Problem: Acute Qualifiers: Urinary tract infection type: acute cystitis (8) Pressure ulcer of left buttock Problem: Acute Qualifiers: Pressure injury stage: unspecified pressure injury stage Qualified Code(s): L89.329 - Pressure ulcer of left buttock, unspecified stage (9) Pressure ulcer of right buttock Problem: Acute Qualifiers: Pressure injury stage: unspecified pressure injury stage Qualified Code(s): L89.319 - Pressure ulcer of right buttock, unspecified stage
[2019-09-25] MEDS: INSULIN LISPRO 100 UNITS/ML VIAL SC SCH ×6 (02:20→23:49)
[2019-09-25] MEDS: LORAZEPAM 2 MG/ML ORAL.CONC PO SCH ×6 (04:27→23:40)
[2019-09-25] MEDS: LEVOTHYROXINE SODIUM 50 MCG TABLET GT SCH (07:21)
[2019-09-25] MEDS: CLINDAMYCIN IN 0.9 % SOD CHLOR 600 MG/50 ML BAG IV SCH ×3 (07:21→23:41)
[2019-09-25 08:54] LABS: Hematocrit 34.3 % (37.0-47.0); Hemoglobin 10.9 gm/dL (12.5-16.0); Mean Cell Volume 102.7 fl (78-100); Mean Corpuscular Hemoglobin 32.6 pg (27-31); Mean Corpuscular Hgb Conc 31.8 g/dl (32-36); Neutrophil # 3.6 K/mm3 (1.3-6.0); Platelet Count 109 K/mm3 (150-450); Red Blood Count 3.34 M/mm3 (4.2-5.4); Red Cell Distribution Width 15.2 % (11.5-14.0); White Blood Count 7.4 K/mm3 (4.0-10.5)
[2019-09-25 09:03] LABS: Albumin * 1.6 gm/dl (3.4-5.0); Anion Gap 11.7 mmol/L (6.8-13.8); BUN/Creatinine Ratio 23.9 (9.0-21.6); Bilirubin, Total 0.3 mg/dL (0.0-1.1); Calcium * 8.4 mg/dL (7.9-10.9); Carbon Dioxide 24.7 mmol/L (24-32.6); Potassium 4.4 mmol/L (3.4-4.6); Total Protein 7.5 gm/dL (6.2-8.2)
[2019-09-25] MEDS: FOLIC ACID 1 MG TABLET GT SCH (09:36)
[2019-09-25] MEDS: CARVEDILOL 3.125 MG TABLET GT SCH ×2 (09:36→21:59)
[2019-09-25] MEDS: DILTIAZEM HCL 60 MG TABLET GT SCH ×4 (09:36→21:58)
[2019-09-25] MEDS: INSULIN GLARGINE,HUM.REC.ANLOG 100 UNITS/ML VIAL SC SCH ×2 (09:37→21:59)
[2019-09-25] MEDS: OMEPRAZOLE 2 MG/ML BTL GT SCH (09:37)
[2019-09-25] MEDS: COLLAGENASE CLOSTRIDIUM HIST. 30 APPL TUBE TP SCH (09:38)
[2019-09-25] MEDS: APIXABAN 5 MG TABLET GT SCH ×2 (09:40→21:59)
[2019-09-25] MEDS: ROSUVASTATIN CALCIUM 20 MG TABLET GT SCH (21:59)
--- NOTE | 2019-09-25 23:38 | PN ---
Subjective - Date and Time Seen Date: 09/25/19 Time: 11:30 Subjective Narrative: Citlali has loose stools. Discussed with manager code, recommend decreasing TF rate to 35ml/hr from 65ml/hr. No fever, chills, nausea or vomiting. CDIFF was negative. Objective - Vitals Vitals: Last Vital Signs Temp 36.2 C 09/25/19 17:47 Pulse 87 09/25/19 21:59 Resp 19 09/25/19 17:47 BP 114/55 09/25/19 21:59 Pulse Ox 98 09/25/19 17:47 - Abnormal Lab Findings Abnormal Lab Findings: Abnormal Lab Results 09/25/19 09/25/19 Range/Units 08:40 08:40 RBC 3.34 L (4.2-5.4) M/mm3 Hgb 10.9 L (12.5-16.0) gm/dL Hct 34.3 L (37.0-47.0) % MCV 102.7 H (78-100) fl MCH 32.6 H (27-31) pg MCHC 31.8 L (32-36) g/dl RDW 15.2 H (11.5-14.0) % Plt Count 109 L (150-450) K/mm3 Sodium 152 H (132-142) mmol/L Plasma Sodium 154 H (130-142) mmol/L Chloride 120 H (97-106) mmol/L BUN 61 H (3-23) mg/dL Creatinine 2.55 H D (0.4-1.4) mg/dL Est GFR (Non-Af Amer) 24 L D (60-130) mL/min BUN/Creatinine Ratio 23.9 H (9.0-21.6) Random Glucose 202 H D (70-110) mg/dL Albumin 1.6 L (3.4-5.0) gm/dl - Exam Constitutional: Present: Alert. Absent: Oriented x3 Respiratory: Present: lungs clear, normal breath sounds, no respiratory distress Cardiovascular/Chest: Present: regular rate, rhythm Abdomen: Present: Normal bowel sounds, soft, nontender Extremity: Absent: lower extremity edema Neurologic: Present: alert, aphasia, motor weakness Assessment/Plan Plan Narrative: Citlali is having loose stools today. Will decrease rate of TF to 35ml/hr on manager code recommendations. Acute kidney injury is improved with creatinine down to 2.5. Continue fluids via GT. Blood sugars in fair control, adjusting insulin as needed. - Problems/Diagnosis (1) Acute kidney injury Problem: Acute (2) Hyperosmolar non-ketotic state due to type 2 diabetes mellitus Problem: Acute (3) Diabetes mellitus, new onset Problem: Acute (4) Cerebral infarction Problem: Chronic Qualifiers: Cerebral infarction mechanism: embolism Precerebral and cerebral artery: unspecified precerebral artery Qualified Code(s): I63.10 - Cerebral infarction due to embolism of unspecified precerebral artery (5) Oral infection Problem: Acute (6) Hypernatremia Problem: Acute (7) ESBL (extended spectrum beta-lactamase) producing bacteria infection Problem: Acute (8) UTI (urinary tract infection) Problem: Acute Qualifiers: Urinary tract infection type: acute cystitis (9) Pressure ulcer of left buttock Problem: Acute Qualifiers: Pressure injury stage: unspecified pressure injury stage Qualified Code(s): L89.329 - Pressure ulcer of left buttock, unspecified stage (10) Pressure ulcer of right buttock Problem: Acute Qualifiers: Pressure injury stage: unspecified pressure injury stage Qualified Code(s): L89.319 - Pressure ulcer of right buttock, unspecified stage
[2019-09-26] MEDS: LORAZEPAM 2 MG/ML ORAL.CONC PO SCH ×6 (04:30→23:35)
[2019-09-26] MEDS: INSULIN LISPRO 100 UNITS/ML VIAL SC SCH ×4 (05:30→23:46)
[2019-09-26] MEDS: CLINDAMYCIN IN 0.9 % SOD CHLOR 600 MG/50 ML BAG IV SCH ×3 (07:24→23:38)
[2019-09-26] MEDS: LEVOTHYROXINE SODIUM 50 MCG TABLET GT SCH (07:28)
[2019-09-26] MEDS: INSULIN GLARGINE,HUM.REC.ANLOG 100 UNITS/ML VIAL SC SCH ×2 (08:43→20:56)
[2019-09-26] MEDS: FOLIC ACID 1 MG TABLET GT SCH (08:43)
[2019-09-26] MEDS: DILTIAZEM HCL 60 MG TABLET GT SCH ×4 (08:43→20:52)
[2019-09-26] MEDS: APIXABAN 5 MG TABLET GT SCH ×2 (08:43→20:53)
[2019-09-26] MEDS: COLLAGENASE CLOSTRIDIUM HIST. 30 APPL TUBE TP SCH (08:44)
[2019-09-26] MEDS: CARVEDILOL 3.125 MG TABLET GT SCH ×2 (08:44→20:53)
[2019-09-26] MEDS: OMEPRAZOLE 2 MG/ML BTL GT SCH (08:50)
[2019-09-26 13:15] LABS: Hematocrit 32.9 % (37.0-47.0); Hemoglobin 10.2 gm/dL (12.5-16.0); Mean Cell Volume 103.8 fl (78-100); Mean Corpuscular Hemoglobin 32.2 pg (27-31); Mean Platelet Volume 14.9 fl (8-12.5); Neutrophil # 2.9 K/mm3 (1.3-6.0); Red Blood Count 3.17 M/mm3 (4.2-5.4); Red Cell Distribution Width 15.1 % (11.5-14.0); White Blood Count 6.5 K/mm3 (4.0-10.5)
[2019-09-26 13:27] LABS: Platelet Count 85 K/mm3 (150-450)
[2019-09-26 13:32] LABS: Albumin * 1.4 gm/dl (3.4-5.0); Anion Gap 9.9 mmol/L (6.8-13.8); BUN/Creatinine Ratio 24.5 (9.0-21.6); Bilirubin, Total 0.2 mg/dL (0.0-1.1); Ca. Corrected For Albumin 10.1 mg/dL (8.4-10.2); Calcium * 8.3 mg/dL (7.9-10.9); Carbon Dioxide 23.6 mmol/L (24-32.6); Potassium 4.5 mmol/L (3.4-4.6); Total Protein 6.6 gm/dL (6.2-8.2)
[2019-09-26] MEDS: ROSUVASTATIN CALCIUM 20 MG TABLET GT SCH (20:53)
--- NOTE | 2019-09-26 22:44 | PN ---
Subjective - Date and Time Seen Date: 09/26/19 Time: 16:15 Subjective Narrative: Citlali continues to have loose stools, unchanged from decrease in tube feed rate. No fever, vomiting, restlessness. Sugars are fairly well controlled. Objective - Vitals Vitals: Last Vital Signs Temp 36.2 C 09/26/19 18:00 Pulse 78 09/26/19 20:53 Resp 20 09/26/19 18:00 BP 124/44 09/26/19 20:53 Pulse Ox 99 09/26/19 18:00 - Abnormal Lab Findings Abnormal Lab Findings: Abnormal Lab Results 09/26/19 09/26/19 Range/Units 13:11 13:11 RBC 3.17 L (4.2-5.4) M/mm3 Hgb 10.2 L (12.5-16.0) gm/dL Hct 32.9 L (37.0-47.0) % MCV 103.8 H (78-100) fl MCH 32.2 H (27-31) pg MCHC 31.0 L (32-36) g/dl RDW 15.1 H (11.5-14.0) % Plt Count 85 L (150-450) K/mm3 MPV 14.9 H (8-12.5) fl Sodium 148 H (132-142) mmol/L Plasma Sodium 149 H (130-142) mmol/L Chloride 119 H (97-106) mmol/L Carbon Dioxide 23.6 L (24-32.6) mmol/L BUN 58 H (3-23) mg/dL Creatinine 2.37 H (0.4-1.4) mg/dL Est GFR (Non-Af Amer) 26 L (60-130) mL/min BUN/Creatinine Ratio 24.5 H (9.0-21.6) Random Glucose 162 H (70-110) mg/dL Albumin 1.4 L (3.4-5.0) gm/dl - Exam Constitutional: Present: Alert. Absent: Oriented x3 Respiratory: Present: lungs clear, normal breath sounds, no respiratory distress Cardiovascular/Chest: Present: regular rate, rhythm, no edema Abdomen: Present: Normal bowel sounds, soft, nontender, nondistended, no rebound tenderness Assessment/Plan Plan Narrative: Renal function continues to improve. Creatinine down to 2.3. Completing clindamycin for oral infection today, will discontinue. Glucose under fair control with insulin, continue to monitor and adjust prn. Plan to discharge to nursing tomorrow. - Problems/Diagnosis (1) Acute kidney injury Problem: Resolved (2) Hyperosmolar non-ketotic state due to type 2 diabetes mellitus Problem: Acute (3) Diabetes mellitus, new onset Problem: Acute (4) Cerebral infarction Problem: Chronic Qualifiers: Cerebral infarction mechanism: embolism Precerebral and cerebral artery: unspecified precerebral artery Qualified Code(s): I63.10 - Cerebral infarction due to embolism of unspecified precerebral artery (5) Oral infection Problem: Acute (6) Hypernatremia Problem: Acute (7) ESBL (extended spectrum beta-lactamase) producing bacteria infection Problem: Acute (8) UTI (urinary tract infection) Problem: Acute Qualifiers: Urinary tract infection type: acute cystitis (9) Pressure ulcer of left buttock Problem: Acute Qualifiers: Pressure injury stage: unspecified pressure injury stage Qualified Code(s): L89.329 - Pressure ulcer of left buttock, unspecified stage (10) Pressure ulcer of right buttock Problem: Acute Qualifiers: Pressure injury stage: unspecified pressure injury stage Qualified Code(s): L89.319 - Pressure ulcer of right buttock, unspecified stage
[2019-09-27] MEDS: LORAZEPAM 2 MG/ML ORAL.CONC PO SCH ×3 (03:12→10:52)
[2019-09-27] MEDS: INSULIN LISPRO 100 UNITS/ML VIAL SC SCH (06:16)
[2019-09-27] MEDS: CLINDAMYCIN IN 0.9 % SOD CHLOR 600 MG/50 ML BAG IV SCH (06:42)
[2019-09-27] MEDS: LEVOTHYROXINE SODIUM 50 MCG TABLET GT SCH (06:42)
--- NOTE | 2019-09-27 08:13 | DS ---
Date of Discharge:: 09/27/19 Hospital Course: Citlali is a 73 yo female with history of severe CVA. She is on tube feeds, does not communicate, or follow commands. She had recently been running high blood sugars but has not been on insulin other than in the hospital previously. She resides at the senior living and blood sugar monitoring was recording too high to count. She has been having mouth discomfort and was found to have an infection and started on amoxicillin. She was also found to have a UTI with ESBL. Both infections were treated. Her sugar was over 1000 and this was treated with fluids and insulin. She now appears stable enough to go back to the nursing. She has chronic pressure sores. She also has diarrhea, which I think is due to the tube feeds, which should be controlled to give her skin less stress. She has multiple stage I pressure sores over her sacrum and upper buttocks. Procedures Performed: none Assessment: Continue insulin. Monitor sugars. Heal pressure sores. Continue tube feed. Control diarrhea. Results and Findings: Lab Pending Results 09/20/19 05:15: Urine Color Yellow, Urine Appearance Cloudy, Urine pH 6.0, Ur Specific Sophia <=1.005, Urine Protein Negative, Urine Glucose (UA) >=1000 H, Urine Ketones Negative, Urine Blood 250 H, Urine Nitrate Negative, Urine Bilirubin Negative, Urine Urobilinogen Normal, Ur Leukocyte Esterase Negative, Urine RBC >50 H, Urine WBC Trace H, Ur Epithelial Cells None seen, Urine Bacteria Trace, Urine Culture Comments Culture to follow 09/20/19 05:35: WBC 8.5, RBC 3.72 L, Hgb 12.0 L, Hct 40.0, MCV 107.5 H, MCH 32.3 H, MCHC 30.0 L, RDW 15.0 H, Plt Count 108 L, MPV TNP, Immature Gran % (Auto) 0.40, Immature Gran # (Auto) 0.03, Neutrophils % 55.1, Lymphocytes % 36.9, Monocytes % 5.7, Eosinophils % 1.4, Basophils % 0.5, Nucleated RBC % 0.0, Neutrophils # 4.7, Lymphocytes # 3.13, Monocytes # 0.5, Eosinophils # 0.1, Absolute Basophils 0.0 09/20/19 05:35: Sodium 146 H, Plasma Sodium 165 H*, Potassium 4.9 H, Chloride 113 H, Carbon Dioxide 25.1, Anion Gap 12.8, BUN 93 H, Creatinine 3.20 H D, Est GFR (Non-Af Amer) 18 L D, BUN/Creatinine Ratio 29.1 H, Random Glucose 1261 H, Calcium 8.7, Calcium Adj for Albumin 10.1, Total Bilirubin 0.3, AST 31, ALT 40, Alkaline Phosphatase 146, Troponin I 0.020, B-Natriuretic Peptide 4503 H, Total Protein 8.5 H, Albumin 1.8 L 09/20/19 05:35: Lactic Acid, Venous 4.5 H* 09/20/19 08:30: Lactic Acid, Venous 5.2 H* 09/22/19 07:14: WBC 7.9, RBC 3.54 L, Hgb 11.5 L, Hct 36.6 L, MCV 103.4 H, MCH 32.5 H, MCHC 31.4 L, RDW 14.6 H, Plt Count 102 L, Immature Gran % (Auto) 0.40, Immature Gran # (Auto) 0.03, Neutrophils % 52.2, Lymphocytes % 37.7, Monocytes % 4.7, Eosinophils % 4.6 H, Basophils % 0.4, Nucleated RBC % 0.0, Neutrophils # 4.1, Lymphocytes # 2.97, Monocytes # 0.4, Eosinophils # 0.4, Absolute Basophils 0.0 09/22/19 07:14: Sodium 151 H, Plasma Sodium 155 H, Potassium 3.9 D, Chloride 118 H, Carbon Dioxide 24.9, Anion Gap 12.0, BUN 79 H, Creatinine 3.03 H, Est GFR (Non-Af Amer) 19 L, BUN/Creatinine Ratio 26.1 H, Random Glucose 335 H D, Calcium 8.3, Calcium Adj for Albumin 10.1, Total Bilirubin 0.3, AST 42, ALT 31, Alkaline Phosphatase 107, Total Protein 7.2, Albumin 1.4 L 09/23/19 06:28: WBC 8.4, RBC 3.42 L, Hgb 11.0 L, Hct 34.8 L, MCV 101.8 H, MCH 32.2 H, MCHC 31.6 L, RDW 14.7 H, Plt Count 105 L, Immature Gran % (Auto) 0.20, Immature Gran # (Auto) 0.02, Neutrophils % 58.9, Lymphocytes % 34.4, Monocytes % 3.6, Eosinophils % 2.7, Basophils % 0.2, Nucleated RBC % 0.0, Neutrophils # 5.0, Lymphocytes # 2.89, Monocytes # 0.3, Eosinophils # 0.2, Absolute Basophils 0.0 09/23/19 06:28: Sodium 150 H, Plasma Sodium 154 H, Potassium 3.8, Chloride 117 H, Carbon Dioxide 23.2 L, Anion Gap 13.6, BUN 75 H, Creatinine 3.05 H, Est GFR (Non-Af Amer) 19 L, BUN/Creatinine Ratio 24.6 H, Random Glucose 345 H, Calcium 8.0, Calcium Adj for Albumin 9.7, Total Bilirubin 0.3, AST 34, ALT 28, Alkaline Phosphatase 111, Total Protein 7.3, Albumin 1.5 L 09/24/19 09:13: Stl C.difficile Tox A&B Negative 09/25/19 08:40: WBC 7.4, RBC 3.34 L, Hgb 10.9 L, Hct 34.3 L, MCV 102.7 H, MCH 32.6 H, MCHC 31.8 L, RDW 15.2 H, Plt Count 109 L, Immature Gran % (Auto) 0.40, Immature Gran # (Auto) 0.03, Neutrophils % 48.0, Lymphocytes % 44.6, Monocytes % 4.1, Eosinophils % 2.6, Basophils % 0.3, Nucleated RBC % 0.0, Neutrophils # 3.6, Lymphocytes # 3.29, Monocytes # 0.3, Eosinophils # 0.2, Absolute Basophils 0.0 09/25/19 08:40: Sodium 152 H, Plasma Sodium 154 H, Potassium 4.4, Chloride 120 H, Carbon Dioxide 24.7, Anion Gap 11.7, BUN 61 H, Creatinine 2.55 H D, Est GFR (Non-Af Amer) 24 L D, BUN/Creatinine Ratio 23.9 H, Random Glucose 202 H D, Calcium 8.4, Calcium Adj for Albumin 10.0, Total Bilirubin 0.3, AST 30, ALT 24, Alkaline Phosphatase 103, Total Protein 7.5, Albumin 1.6 L 09/26/19 13:11: WBC 6.5, RBC 3.17 L, Hgb 10.2 L, Hct 32.9 L, MCV 103.8 H, MCH 32.2 H, MCHC 31.0 L, RDW 15.1 H, Plt Count 85 L, MPV 14.9 H, Immature Gran % (Auto) 0.30, Immature Gran # (Auto) 0.02, Neutrophils % 45.0, Lymphocytes % 46.8, Monocytes % 4.7, Eosinophils % 2.9, Basophils % 0.3, Nucleated RBC % 0.0, Neutrophils # 2.9, Lymphocytes # 3.02, Monocytes # 0.3, Eosinophils # 0.2, Absolute Basophils 0.0 09/26/19 13:11: Sodium 148 H, Plasma Sodium 149 H, Potassium 4.5, Chloride 119 H, Carbon Dioxide 23.6 L, Anion Gap 9.9, BUN 58 H, Creatinine 2.37 H, Est GFR (Non-Af Amer) 26 L, BUN/Creatinine Ratio 24.5 H, Random Glucose 162 H, Calcium 8.3, Calcium Adj for Albumin 10.1, Total Bilirubin 0.2, AST 33, ALT 20, Alkaline Phosphatase 87, Total Protein 6.6, Albumin 1.4 L Discharge Location: [facility] Disposition: Intermediate Care Facility ICF Condition: Fair Level of Care: ICF Discharge Activity: Other - bed to chair with help Discharge Diet: Tube Feedings - Jevity, continuous, 35 ml per hour. Referrals: Duarte Metcalf MD [Primary Care Provider] - Additional Patient Instructions (free text): Water flushes 215ml q 6 hrs. Do finger stick blood sugars q 6h. Call if less than 80 or more than 400 or if you have questions. Complete Home Medications List: Complete Home Medication List: carvedilol 3.125 mg tablet 3.125 mg GT BID 05/13/19 diltiazem HCl 240 mg capsule,extended release 24 hr 240 mg GT DAILY 05/13/19 folic acid 1 mg tablet 1 mg GT DAILY 05/13/19 senna-docusate sodium 2 each GT BID PRN #0 tab 05/13/19 Acetaminophen [Tylenol] 325 mg GT QID PRN 06/09/19 cyanocobalamin (vitamin B-12) 1,000 mcg/mL oral drops 1 ml PO DAILY #60 ml 06/26/19 Apixaban [Eliquis] 5 mg GT BID 09/14/19 Lactose-Reduced Food/Fiber [Jevity 1.2 Cody Liquid] 75 ml GT DAILY 09/14/19 Levothyroxine Sodium [Synthroid] 50 mcg GT DAILY 09/14/19 Lorazepam 0.5 mg PO Q4H 09/14/19 Whey Protein/Arginine/C/E/Zinc [Arginaid Extra Liquid] 227 ml GT DAILY 09/14/19 Aspirin [Aspirin Chewable] 81 mg GT DAILY 09/20/19 Nystatin 15 gm TOPICAL DAILY PRN 09/20/19 Albuterol Sulfate [Albuterol Sulfate 2.5 MG/0.5ML] 2.5 mg INHALATION Q4H PRN vial.neb 09/27/19 Collagenase Clostridium Hist. [Santyl] 1 appl TOPICAL DAILY tube 09/27/19 Diphenoxylate HCl/Atrop Sulf [Lomotil Liquid] 5 ml NG Q8H liquid 09/27/19 Insulin Glargine,Hum.rec.anlog [Lantus] 40 units SC BID vial 09/27/19 Insulin Lispro [Humalog] 0 units SC Q6H vial 09/27/19 Omeprazole [Prilosec] 40 mg GT DAILY btl 09/27/19 Rosuvastatin Calcium [Crestor] 20 mg GT HS tab 09/27/19 Amb Orders for Discharge: CBC Time Frame: 1 Week, Facility: [facility], Location: [facility] Comprehensive Metabolic Panel Time Frame: 1 Week, Facility: [facility], Location: Laboratory Forms: Patient Portal Registration
[2019-09-27] MEDS ORDERED: DIPHENOXYLATE NG SCH (08:15)
[2019-09-27] MEDS ORDERED: ATROPINE NG SCH (08:15)
[2019-09-27 08:24] LABS: Hematocrit 32.5 % (37.0-47.0); Hemoglobin 10.1 gm/dL (12.5-16.0); Mean Cell Volume 103.5 fl (78-100); Mean Corpuscular Hemoglobin 32.2 pg (27-31); Mean Corpuscular Hgb Conc 31.1 g/dl (32-36); Neutrophil # 2.8 K/mm3 (1.3-6.0); Neutrophil % 39.7 % (42-75.0); Platelet Count 110 K/mm3 (150-450); Red Blood Count 3.14 M/mm3 (4.2-5.4); Red Cell Distribution Width 15.2 % (11.5-14.0); White Blood Count 7.1 K/mm3 (4.0-10.5)
[2019-09-27 08:47] LABS: Albumin * 1.4 gm/dl (3.4-5.0); Anion Gap 9.4 mmol/L (6.8-13.8); BUN/Creatinine Ratio 23.3 (9.0-21.6); Bilirubin, Total 0.2 mg/dL (0.0-1.1); Ca. Corrected For Albumin 10.3 mg/dL (8.4-10.2); Calcium * 8.5 mg/dL (7.9-10.9); Carbon Dioxide 24.6 mmol/L (24-32.6); Total Protein 6.6 gm/dL (6.2-8.2)
[2019-09-27] MEDS: DILTIAZEM HCL 60 MG TABLET GT SCH (09:33)
[2019-09-27] MEDS: INSULIN GLARGINE,HUM.REC.ANLOG 100 UNITS/ML VIAL SC SCH (09:34)
[2019-09-27] MEDS: APIXABAN 5 MG TABLET GT SCH (09:34)
[2019-09-27] MEDS: FOLIC ACID 1 MG TABLET GT SCH (09:34)
[2019-09-27] MEDS: CARVEDILOL 3.125 MG TABLET GT SCH (09:34)
[2019-09-27] MEDS: OMEPRAZOLE 2 MG/ML BTL GT SCH (09:35)
[2019-09-27] MEDS: COLLAGENASE CLOSTRIDIUM HIST. 30 APPL TUBE TP SCH (09:36)
--- NOTE | 2019-09-27 11:51 | PN ---
Subjective - Date and Time Seen Date: 09/27/19 Time: 11:48 Subjective Narrative: this is to provide the discharge diagnoses as I didn't record them on her actual discharge summary. Objective - Vitals Vitals: Last Vital Signs Temp 36.3 C 09/27/19 06:35 Pulse 89 09/27/19 09:34 Resp 20 09/27/19 06:35 BP 109/54 09/27/19 09:34 Pulse Ox 100 09/27/19 06:35 - Abnormal Lab Findings Abnormal Lab Findings: Abnormal Lab Results 09/26/19 09/26/19 09/27/19 Range/Units 13:11 13:11 08:20 RBC 3.17 L 3.14 L (4.2-5.4) M/mm3 Hgb 10.2 L 10.1 L (12.5-16.0) gm/dL Hct 32.9 L 32.5 L (37.0-47.0) % MCV 103.8 H 103.5 H (78-100) fl MCH 32.2 H 32.2 H (27-31) pg MCHC 31.0 L 31.1 L (32-36) g/dl RDW 15.1 H 15.2 H (11.5-14.0) % Plt Count 85 L 110 L (150-450) K/mm3 MPV 14.9 H (8-12.5) fl Neutrophils % 39.7 L (42-75.0) % Lymphocytes # 3.62 H (1.5-3.5) k/mm3 Sodium 148 H (132-142) mmol/L Plasma Sodium 149 H (130-142) mmol/L Potassium (3.4-4.6) mmol/L Chloride 119 H (97-106) mmol/L Carbon Dioxide 23.6 L (24-32.6) mmol/L BUN 58 H (3-23) mg/dL Creatinine 2.37 H (0.4-1.4) mg/dL Est GFR (Non-Af Amer) 26 L (60-130) mL/min BUN/Creatinine Ratio 24.5 H (9.0-21.6) Random Glucose 162 H (70-110) mg/dL Calcium Adj for Albumin (8.4-10.2) mg/dL Albumin 1.4 L (3.4-5.0) gm/dl 09/27/19 Range/Units 08:20 RBC (4.2-5.4) M/mm3 Hgb (12.5-16.0) gm/dL Hct (37.0-47.0) % MCV (78-100) fl MCH (27-31) pg MCHC (32-36) g/dl RDW (11.5-14.0) % Plt Count (150-450) K/mm3 MPV (8-12.5) fl Neutrophils % (42-75.0) % Lymphocytes # (1.5-3.5) k/mm3 Sodium 147 H (132-142) mmol/L Plasma Sodium 148 H (130-142) mmol/L Potassium 5.0 H (3.4-4.6) mmol/L Chloride 118 H (97-106) mmol/L Carbon Dioxide (24-32.6) mmol/L BUN 55 H (3-23) mg/dL Creatinine 2.36 H (0.4-1.4) mg/dL Est GFR (Non-Af Amer) 26 L (60-130) mL/min BUN/Creatinine Ratio 23.3 H (9.0-21.6) Random Glucose 146 H (70-110) mg/dL Calcium Adj for Albumin 10.3 H (8.4-10.2) mg/dL Albumin 1.4 L (3.4-5.0) gm/dl Comments:: potassium is a little high, we will check again in a week. otherwise labs fairly stable.+ Assessment/Plan - Problems/Diagnosis (1) ESBL (extended spectrum beta-lactamase) producing bacteria infection Problem: Acute (2) Hyperosmolar non-ketotic state due to type 2 diabetes mellitus Problem: Acute (3) Oral infection Problem: Acute (4) Pressure ulcer of left buttock Problem: Acute Qualifiers: Pressure injury stage: unspecified pressure injury stage Qualified Code(s): L89.329 - Pressure ulcer of left buttock, unspecified stage (5) Pressure ulcer of right buttock Problem: Acute Qualifiers: Pressure injury stage: unspecified pressure injury stage Qualified Code(s): L89.319 - Pressure ulcer of right buttock, unspecified stage (6) UTI (urinary tract infection) Problem: Acute Qualifiers: Urinary tract infection type: acute cystitis (7) JORGE (acute kidney injury) Problem: Acute (8) Lymphedema Problem: Acute (9) Atrial fibrillation Problem: Chronic Qualifiers: Atrial fibrillation type: longstanding persistent Qualified Code(s): I48.11 - Longstanding persistent atrial fibrillation (10) Cerebral infarction Problem: Chronic Qualifiers: Cerebral infarction mechanism: embolism Precerebral and cerebral artery: unspecified precerebral artery Qualified Code(s): I63.10 - Cerebral infarction due to embolism of unspecified precerebral artery (11) Morbid obesity Problem: Chronic (12) intermediate resident Problem: Chronic (13) Vascular dementia with behavior disturbance Problem: Chronic (14) Wheelchair bound Problem: Chronic
[2019-09-27 12:14] VITALS: BP 142/62
== END 2019-09-27 12:40 | DRG 638 ==
LOC: ER 04:42 → MS 07:42 → INTOOBSV 07:42 → MS 08:10
PROVIDERS: ADMIT Family Medicine; ATTEND Family Medicine
DX: I89.0 Lymphedema, not elsewhere classified; Z99.3 Dependence on wheelchair; I48.11 Longstanding persistent atrial fibrillation; F01.51 Vascular dementia, unspecified severity, with behavioral disturbance; Z68.32 Body mass index [BMI] 32.0-32.9, adult; E66.01 Morbid (severe) obesity due to excess calories; I69.818 Other symptoms and signs involving cognitive functions following other cerebrovascular disease; L89.329 Pressure ulcer of left buttock, unspecified stage; I10 Essential (primary) hypertension; B96.20 Unspecified Escherichia coli [E. coli] as the cause of diseases classified elsewhere; E87.0 Hyperosmolality and hypernatremia; N28.9 Disorder of kidney and ureter, unspecified; Z16.12 Extended spectrum beta lactamase (ESBL) resistance; L89.319 Pressure ulcer of right buttock, unspecified stage; L89.152 Pressure ulcer of sacral region, stage 2; K04.7 Periapical abscess without sinus; I69.328 Other speech and language deficits following cerebral infarction; I48.92 Unspecified atrial flutter; N30.20 Other chronic cystitis without hematuria; E11.00 Type 2 diabetes mellitus with hyperosmolarity without nonketotic hyperglycemic-hyperosmolar coma (NKHHC)
CPT/HCPCS: 36415; 71010; 71045; 80053; 81001; 83519; 83605; 83880; 84484; 85025; 87040; 87081; 87086; 87493; 93005; 96365; 96366; 96372; 96375; 96376; 99285; G0378; U0001

== ENCOUNTER 2019-12-29 23:18 | Inpatient (IN) ==
--- NOTE | 2019-12-29 23:39 | ERNOTE ---
Upper Extremity HPI - Narrative Date of Service: 12/29/19 - General Extremities Pain Location: shoulder: right, arm: right, forearm: right, wrist: right, hand: right Time Seen by Provider: 12/29/19 23:30 Source: patient - Immun/Allergies/Home Medications Immunizations: IMMUNIZATION HX Immunizations Up to Date Yes History of Influenza Vaccine Yes Hx Pneumococcal Vaccination No Allergies/Adverse Reactions: Allergies Allergy/AdvReac Type Severity Reaction Status Date / Time No Known Allergies Allergy Verified 12/29/19 23:49 Home Medications: HOME MEDICATIONS carvedilol 3.125 mg tablet 3.125 mg GT BID 05/13/19 [Last Taken Unknown] folic acid 1 mg tablet 1 mg GT DAILY 05/13/19 [Last Taken Unknown] senna-docusate sodium 2 each GT BID PRN #0 tab 05/13/19 [Last Taken Unknown] Acetaminophen [Tylenol] 325 mg GT QID PRN 06/09/19 [Last Taken Unknown] cyanocobalamin (vitamin B-12) 1,000 mcg/mL oral drops 1 ml PO DAILY #60 ml 06/26/19 [Last Taken Unknown] Apixaban [Eliquis] 5 mg GT BID 09/14/19 [Last Taken Unknown] Lactose-Reduced Food/Fiber [Jevity 1.2 Cody Liquid] 75 ml GT DAILY 09/14/19 [Last Taken Unknown] Levothyroxine Sodium [Synthroid] 50 mcg GT DAILY 09/14/19 [Last Taken Unknown] Whey Protein/Arginine/C/E/Zinc [Arginaid Extra Liquid] 227 ml GT DAILY 09/14/19 [Last Taken Unknown] Aspirin [Aspirin Chewable] 81 mg GT DAILY 09/20/19 [Last Taken Unknown] Nystatin 15 gm TOPICAL DAILY PRN 09/20/19 [Last Taken Unknown] Albuterol Sulfate [Albuterol Sulfate 2.5 MG/0.5ML] 2.5 mg INHALATION Q4H PRN vial.neb 09/27/19 [Last Taken Unknown] Collagenase Clostridium Hist. [Santyl] 1 appl TOPICAL DAILY tube 09/27/19 [Last Taken Unknown] Diphenoxylate HCl/Atrop Sulf [Lomotil Liquid] 5 ml NG Q8H liquid 09/27/19 [Last Taken Unknown] Insulin Glargine,Hum.rec.anlog [Lantus] 40 units SC BID vial 09/27/19 [Last Taken Unknown] Insulin Lispro [Humalog] 0 units SC Q6H vial 09/27/19 [Last Taken Unknown] Omeprazole [Prilosec] 40 mg GT DAILY btl 09/27/19 [Last Taken Unknown] Rosuvastatin Calcium [Crestor] 20 mg GT HS tab 09/27/19 [Last Taken Unknown] sodium polystyrene sulfonate 15 gram/60 mL oral suspension 90 ml G-TUBE QID #473 ml 10/11/19 [Last Taken Unknown] diltiazem HCl 120 mg capsule,24 hr,extended release 120 mg PO DAILY #0.1 cap 10/15/19 [Last Taken Unknown] diltiazem HCl 240 mg capsule,extended release 24 hr See Rx Instructions PO DAILY 10/15/19 [Last Taken Unknown] potassium chloride 20 mEq tablet,extended release 20 meq PO TID #90 tab 12/19/19 [Last Taken Unknown] Ertapenem Sodium [Ertapenem] 500 mg IV DAILY 12/30/19 [Last Taken Unknown] Lorazepam 0.25 mg PO Q4H PRN 12/30/19 [Last Taken Unknown] Saccharomyces Boulardii [Florastor] 250 mg PO BID 12/30/19 [Last Taken Unknown] - History of Present Illness Narrative: 74-year-old female sent from the detention for evaluation of her right arm IV fluids infiltrated unknown when it occurred patient patient has dementia so was unaware of her surroundings Date (Duration): 12/29/19 Time (Timing): 23:34 Occurred: other - Unknown was just discovered tonight on rounds Location of Incident: other - Nursing Severity: moderate Method of Injury: Reports: other - Infiltrated IV Associated Symptoms: Reports: other - Unable to evaluate due to patient's dementia Prior Treament: Reports: currently on antibiotics, other - From detention Review of Systems - Narrative Narrative: Unobtainable from patient due to her clinical status - Review of Systems Constitutional: Present: no symptoms reported EYE: Present: no symptoms reported ENT: Present: no symptoms reported Respiratory: Present: no symptoms reported Cardiology: Present: no symptoms reported Gastrointestinal/Abdominal: Present: no symptoms reported Genitourinary: Present: no symptoms reported Musculoskeletal: Present: no symptoms reported Neurological: Present: no symptoms reported All Other Systems: All systems neg except as marked Medical History (Last Reviewed 12/29/19 @ 23:36 by Manan Blair MD) Generalized pain (Chronic) Altered mental status, unspecified Onset Date: ~04/18/19 Atrial fibrillation Onset Date: ~11/01/18 Benign paroxysmal positional vertigo due to bilateral vestibular disorder Onset Date: ~11/01/18 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 Onset Date: ~05/14/19 Dry eye syndrome of both lacrimal glands Onset Date: ~04/18/19 History of transient ischemic attack and cerebral infarction Onset Date: ~11/01/18 Hypertension, essential Onset Date: ~11/01/18 Hypertensive retinopathy of both eyes Onset Date: ~04/18/19 Hypothyroidism Onset Date: ~11/01/18 Morbid (severe) obesity due to excess calories Onset Date: ~11/19/18 Muscle wasting and atrophy, not elsewhere classified, multiple sites Onset Date: ~04/18/19 Non-pressure chronic ulcer of right lower leg with fat layer exposed Onset Date: Unknown Oral phase dysphagia Onset Date: ~05/14/19 Peripheral venous insufficiency Onset Date: ~11/01/18 Pulmonary embolism Onset Date: ~11/01/18 Pure hypercholesterolemia Onset Date: ~11/01/18 Sepsis Onset Date: Unknown 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) Onset Date: 04/18/19 Stasis ulcer of lower extremity Onset Date: Unknown Unspecified asthma, uncomplicated Onset Date: ~11/01/18 Weakness Onset Date: ~05/14/19 Anemia Onset Date: Unknown Asthma Onset Date: Unknown Atrial fibrillation and flutter Onset Date: Unknown CVA (cerebral vascular accident) Onset Date: Unknown HTN (hypertension) Onset Date: Unknown History of pulmonary embolus (PE) Onset Date: Unknown Hypothyroidism (acquired) Onset Date: Unknown Lymphedema of leg Onset Date: Unknown Morbid obesity with BMI of 50.0-59.9, adult Onset Date: Unknown Rheumatoid arthritis Onset Date: Unknown Venous insufficiency (chronic) (peripheral) Onset Date: Unknown BPPV (benign paroxysmal positional vertigo) Onset Date: Unknown Cellulitis Onset Date: Unknown right leg Dysuria Onset Date: Unknown H/O hyperkalemia Onset Date: Unknown History of CVA (cerebrovascular accident) Onset Date: Unknown Hypercholesteremia Onset Date: Unknown Surgical History: Surgical History (Last Reviewed 12/29/19 @ 23:36 by Manan Blair MD) Gastrostomy status Onset Date: ~04/18/19 History of incision and drainage Onset Date: ~09/17/18 right thigh mass Family History: Family History (Last Reviewed 12/29/19 @ 23:36 by Manan Blair MD) Mother Coronary artery disease Father Diabetes Sister Coronary artery disease Cancer breast Social History: (Last Reviewed 12/29/19 @ 23:49 by Rolanando Grayson) Social History: current occupational status: retired Service: No Tobacco: Smoking Status: Former smoker Alcohol: alcohol intake: never Substance Use: substance use type: does not use Dietary Habits: caffeine: Yes Physical Exam - Physical Exam General Appearance: Present: alert, obese, other - Conscious but confused Head Exam: Present: normal inspection Eye Exam: Normal inspection: bilateral Ears, Nose, Throat: Present: normal ENT inspection Neck: Present: normal inspection Respiratory: Present: no respiratory distress Cardiovascular/Chest: Present: regular rate, rhythm Gastrointestinal/Abdominal: Present: normal bowel sounds Extremity Exam: Present: other - Right upper extremity swelling pitting from the fingers hands all the way up to the of the shoulder from her right elbow to the axillary region is diffuse swelling and some excoriation of the skin with some oozing of serous fluid. Absent: normal inspection Neurological Exam: Present: motor weakness, disoriented to person, disoriented to time, disoriented to place, disoriented to situation Skin Exam: Present: normal color Lymphatic Exam: Present: no adenopathy Progress - Results and Orders Patient's Lab Results:: I have reviewed the patient's lab results. Results and Orders: Laboratory Tests 12/30/19 12/30/19 00:10 00:10 WBC 11.5 H RBC 1.96 L Hgb 6.7 L* D Hct 21.4 L* D MCV 109.2 H MCH 34.2 H MCHC 31.3 L RDW 17.1 H Neutrophils % 53.1 Monocytes % 6.2 Sodium 135 Plasma Sodium 135 Potassium 5.1 H D Chloride 104 Carbon Dioxide 23.6 L Anion Gap 12.5 BUN 37 H Creatinine 2.00 H D Est GFR (Non-Af Amer) 31 L D BUN/Creatinine Ratio 18.5 Random Glucose 81 Calcium 8.1 Calcium Adj for Albumin 9.8 Total Bilirubin 0.3 AST 40 ALT 14 L Alkaline Phosphatase 98 Total Protein 6.9 Albumin 1.5 L Laboratory Tests 12/30/19 00:10 D-Dimer 0.57 H - Vital Signs Patient's Vital Signs:: I have reviewed the patient's vital signs. - CT/Ultrasound CT/Ultrasound Narrative: Ultrasound of the right arm no DVT there is a complex echogenicity from the elbow that is 13 x 4.7 x 3.8 represents a collection of fluid either hematoma or seroma or abscess Plan - Plan Plan: Patient was discussed with Dr. Diez patient will be admitted and consult for surgery tomorrow Departure Clinical Impression: Hematoma of arm, Anemia - Departure Disposition: Short Term Hospital Inpatient Condition: Stable Print Language: Persian Additional Instructions: Admit to hospital Referrals: Duarte Metcalf MD [Primary Care Provider] -
[2019-12-30 00:17] LABS: Mean Cell Volume 109.2 fl (78-100); Mean Corpuscular Hemoglobin 34.2 pg (27-31); Mean Corpuscular Hgb Conc 31.3 g/dl (32-36); Mean Platelet Volume 11.6 fl (8-12.5); NRBC# 0.1 k/mm3 (0-1); Neutrophil # 6.1 K/mm3 (1.3-6.0); Neutrophil % 53.1 % (42-75.0); Platelet Count 212 K/mm3 (150-450); Red Blood Count 1.96 M/mm3 (4.2-5.4); Red Cell Distribution Width 17.1 % (11.5-14.0); White Blood Count 11.5 K/mm3 (4.0-10.5)
[2019-12-30 00:20] LABS: Hematocrit 21.4 % (37.0-47.0); Hemoglobin 6.7 gm/dL (12.5-16.0)
[2019-12-30 00:30] LABS: Albumin * 1.5 gm/dl (3.4-5.0); Anion Gap 12.5 mmol/L (6.8-13.8); BUN/Creatinine Ratio 18.5 (9.0-21.6); Bilirubin, Total 0.3 mg/dL (0.0-1.1); Ca. Corrected For Albumin 9.8 mg/dL (8.4-10.2); Calcium * 8.1 mg/dL (7.9-10.9); Carbon Dioxide 23.6 mmol/L (24-32.6); Potassium 5.1 mmol/L (3.4-4.6); Total Protein 6.9 gm/dL (6.2-8.2)
[2019-12-30] MEDS ORDERED: COLLAGENASE CLOSTRIDIUM HIST. 30 APPL TUBE TP SCH (10:30)
[2019-12-30] MEDS: INSULIN GLARGINE,HUM.REC.ANLOG 100 UNITS/ML VIAL SC SCH ×2 (12:16→23:47)
[2019-12-30] MEDS: SACCHAROMYCES BOULARDII 250 MG CAPSULE PEG SCH ×2 (12:17→23:40)
[2019-12-30] MEDS: OMEPRAZOLE 2 MG/ML BTL PEG SCH ×2 (12:17→23:40)
[2019-12-30] MEDS: VANCOMYCIN HCL 50 MG/ML BTL PO SCH ×2 (12:17→19:18)
--- NOTE | 2019-12-30 12:58 | HP ---
Chief Complaint - Chief Complaint Date of Service: 12/30/19 Time of Service: 11:50 Chief Complaint: Swollen right arm History of Present Illness: This is a 74 y/o black woman who resides at the [facility] because of vascular dementia, inablitiy to care for herself and PEG tube feeds and meds due to discoordinated swallowing with aspiration. She presented in the wee hours of this morning to the [facility] ER because of a swollen right upper arm. An ultrasound then showed a fluid collection in her right upper arm. The ER doctor mentioned surgical referral at time of admission, but no referral was made at that time. She was admitted to our [facility] consultant doctor. When I became aware of her admission, I call the surgeon who was [facility] rails consultant for today and explained the situation, which he and I discussed. I then ordererd a surgery consult as an order. I have also been collecting information from different sources from the recent past history. She is unable to provide history herself because she is nonverbal due to dementia. She has had several strokes. She also has had several dvt's and pulmonary embolisms, for which reason she has been taking anticoagulant. She came to the [facility] ER two weeks ago and was found to have dehydration, with hypokalemia and elevated troponin. She was transferred then to [facility] because we had no availbable beds. She was treated and returned to the long term. Then towards the middle to end of last week she was readmitted to [facility]. I do not yet have those records, although they have been requested from [facility]. The long term apparently does not have those particular ones. From the most recent admission at [facility] she was sent back to the long term 3 days ago in the evening. She has a PIC line in the left arm. She has a chronic PEG tube. The admission early this morning was apparently due to swelling and pain in her right upper arm. Mention was made of infiltrated IV, but I have no specific documentation of this. Ultrasound today in the ER here showed a collection of fluid in the right upper arm. The patient is on anticoagulant due to a fib. She is now in sinus rhythm. In the last 2 weeks her hgb has dropped 5 grams. The first stool for OB today is negative. There is moderate to severe brusing over the right upper arm, and I suspect hematoma. Within the last two weeks in [place] she had a urine culture which grew: ESBL E. coli, Enteroccocus faecalis, Strep mutans, Klebsiella oxytoca and Proteus mirabilis. She was placed on IV Ertapenem for what may have been a contaminated culture. Her wbc count here this morning is essentially normal. Also in the last two weeks, she has been diagnosed with diarrhea due to C. Dif, treated with oral vancomycin and probiotics. Her hgb this morning is 6.7. Vitals are fairly stable and not bad. How long she has had the right upper arm swelling is not clear to me right now. The long term nurses with whom I spoke this morning were unable to clarify. she also has a stage 3 pressure sore on her left buttock. 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 Onset Date: ~05/14/19 Dry eye syndrome of both lacrimal glands Onset Date: ~04/18/19 History of transient ischemic attack and cerebral infarction Onset Date: ~11/01/18 Hypertension, essential Onset Date: ~11/01/18 Hypertensive retinopathy of both eyes Onset Date: ~04/18/19 Hypothyroidism Onset Date: ~11/01/18 Morbid (severe) obesity due to excess calories Onset Date: ~11/19/18 Muscle wasting and atrophy, not elsewhere classified, multiple sites Onset Date: ~04/18/19 Non-pressure chronic ulcer of right lower leg with fat layer exposed Onset Date: Unknown Oral phase dysphagia Onset Date: ~05/14/19 Peripheral venous insufficiency Onset Date: ~11/01/18 Pulmonary embolism Onset Date: ~11/01/18 Pure hypercholesterolemia Onset Date: ~11/01/18 Sepsis Onset Date: Unknown 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) Onset Date: 04/18/19 Stasis ulcer of lower extremity Onset Date: Unknown Unspecified asthma, uncomplicated Onset Date: ~11/01/18 Weakness Onset Date: ~05/14/19 Anemia Onset Date: Unknown Asthma Onset Date: Unknown Atrial fibrillation and flutter Onset Date: Unknown CVA (cerebral vascular accident) Onset Date: Unknown HTN (hypertension) Onset Date: Unknown History of pulmonary embolus (PE) Onset Date: Unknown Hypothyroidism (acquired) Onset Date: Unknown Lymphedema of leg Onset Date: Unknown Morbid obesity with BMI of 50.0-59.9, adult Onset Date: Unknown Rheumatoid arthritis Onset Date: Unknown Venous insufficiency (chronic) (peripheral) Onset Date: Unknown BPPV (benign paroxysmal positional vertigo) Onset Date: Unknown Cellulitis Onset Date: Unknown right leg Dysuria Onset Date: Unknown H/O hyperkalemia Onset Date: Unknown History of CVA (cerebrovascular accident) Onset Date: Unknown Hypercholesteremia Onset Date: Unknown Surgical History: Surgical History (Last Reviewed 12/30/19 @ 12:46 by Duarte Metcalf MD) Gastrostomy status Onset Date: ~04/18/19 History of incision and drainage Onset Date: ~09/17/18 right thigh mass Family History: Family History (Last Reviewed 12/30/19 @ 12:46 by Duarte Metcalf MD) Mother Coronary artery disease Father Diabetes Sister Cancer breast Coronary artery disease Social History: (Last Reviewed 12/30/19 @ 12:46 by Duarte Metcalf MD) Social History: current occupational status: retired Service: No Tobacco: Smoking Status: Former smoker Alcohol: alcohol intake: never Substance Use: substance use type: does not use Dietary Habits: caffeine: Yes Review Of Systems (GEN) - Review of Systems Generalized/Overall Review: Present: No Symptoms Reported - patient non verbal, unable to provide any information. Immunizations: IMMUNIZATION HX Immunizations Up to Date Yes History of Influenza Vaccine Yes Hx Pneumococcal Vaccination No Allergies/Adverse Reactions: Allergies Allergy/AdvReac Type Severity Reaction Status Date / Time No Known Allergies Allergy Verified 12/29/19 23:49 Home Medications: HOME MEDICATIONS carvedilol 3.125 mg tablet 3.125 mg GT BID 05/13/19 [Last Taken Unknown] folic acid 1 mg tablet 1 mg GT DAILY 05/13/19 [Last Taken Unknown] senna-docusate sodium 2 each GT BID PRN #0 tab 05/13/19 [Last Taken Unknown] Acetaminophen [Tylenol] 325 mg GT QID PRN 06/09/19 [Last Taken Unknown] cyanocobalamin (vitamin B-12) 1,000 mcg/mL oral drops 1 ml PO DAILY #60 ml 06/26/19 [Last Taken Unknown] Apixaban [Eliquis] 5 mg GT BID 09/14/19 [Last Taken Unknown] Lactose-Reduced Food/Fiber [Jevity 1.2 Cody Liquid] 75 ml GT DAILY 09/14/19 [Last Taken Unknown] Levothyroxine Sodium [Synthroid] 50 mcg GT DAILY 09/14/19 [Last Taken Unknown] Whey Protein/Arginine/C/E/Zinc [Arginaid Extra Liquid] 227 ml GT DAILY 09/14/19 [Last Taken Unknown] Aspirin [Aspirin Chewable] 81 mg GT DAILY 09/20/19 [Last Taken Unknown] Nystatin 15 gm TOPICAL DAILY PRN 09/20/19 [Last Taken Unknown] Albuterol Sulfate [Albuterol Sulfate 2.5 MG/0.5ML] 2.5 mg INHALATION Q4H PRN vial.neb 09/27/19 [Last Taken Unknown] Diphenoxylate HCl/Atrop Sulf [Lomotil Liquid] 5 ml NG Q8H liquid 09/27/19 [Last Taken Unknown] Insulin Glargine,Hum.rec.anlog [Lantus] 40 units SC BID vial 09/27/19 [Last Taken Unknown] Rosuvastatin Calcium [Crestor] 20 mg GT HS tab 09/27/19 [Last Taken Unknown] sodium polystyrene sulfonate 15 gram/60 mL oral suspension 90 ml G-TUBE QID #473 ml 10/11/19 [Last Taken Unknown] diltiazem HCl 120 mg capsule,24 hr,extended release 120 mg PO DAILY #0.1 cap 10/15/19 [Last Taken Unknown] Ertapenem Sodium [Ertapenem] 500 mg IV DAILY 12/30/19 [Last Taken Unknown] Insulin Lispro [Humalog] 0 units SC Q6H 12/30/19 [Last Taken Unknown] Lorazepam 0.25 mg PO Q4H PRN 12/30/19 [Last Taken Unknown] Omeprazole [Prilosec] 20 mg GT DAILY 12/30/19 [Last Taken Unknown] Saccharomyces Boulardii [Florastor] 250 mg PO BID 12/30/19 [Last Taken Unknown] Vancomycin HCl 250 mg PO QID 12/30/19 [Last Taken Unknown] Exam - Exam Vital Signs: Vital Signs - Last Taken Temp 36.3 C 12/30/19 11:05 Pulse 91 12/30/19 11:05 Resp 16 12/30/19 11:05 BP 121/42 12/30/19 11:05 Pulse Ox 98 12/30/19 11:05 Constitutional: Present: Alert, Elderly, Obese. Absent: Oriented x3 ENT Exam: Present: normal ENT inspection Eye Exam: bilateral eye: normal inspection, PERRL, EOMI Neck: Present: normal inspection. Absent: lymphadenopathy (R), lymphadenopathy (L), thyromegaly Breasts: Present: Exam deferred Respiratory: Present: lungs clear, no respiratory distress Cardiovascular/Chest: Present: regular rate, rhythm, no gallop, no JVD, no murmur. Absent: edema - +1 ankles. moderate to severe tender swelling right upper arm. Peripheral Pulses: carotid (R): 1+, carotid (L): 1+, femoral (R): 1+, femoral (L): 1+ Abdomen: Present: Normal bowel sounds, soft, nontender, no hepatospenomegaly, no masses, obese /Rectal: Present: Exam deferred Extremity: Present: lower extremity edema, other - upper extremity proximal swelling with moderate to severe bruising. still has radial pulse on right side. Skin Exam: Present: normal color, warm/dry, other - stage 3 pressure sore left buttock. Lymphatic: Present: no adenopathy Neurologic: Present: other - bed confined. minimal use of muscles on either side. Appearance: Absent: appropriate insight Eye contact: Absent: cooperative, good eye contact, normal speech, belligerent Thoughts: Absent: normal thought pattern Diagnostic Studies: Abnormal Lab Results 12/30/19 12/30/19 12/30/19 Range/Units 00:10 00:10 00:10 WBC 11.5 H (4.0-10.5) K/mm3 RBC 1.96 L (4.2-5.4) M/mm3 Hgb 6.7 L* D (12.5-16.0) gm/dL Hct 21.4 L* D (37.0-47.0) % MCV 109.2 H (78-100) fl MCH 34.2 H (27-31) pg MCHC 31.3 L (32-36) g/dl RDW 17.1 H (11.5-14.0) % Immature Gran # (Auto) 0.04 H (0.000-0.0310) K/mm3 Eosinophils % 4.7 H (0.0-3.0) % Neutrophils # 6.1 H (1.3-6.0) K/mm3 Lymphocytes # 4.07 H (1.5-3.5) k/mm3 D-Dimer 0.57 H (0.19-0.49) ug/mL Potassium 5.1 H D (3.4-4.6) mmol/L Carbon Dioxide 23.6 L (24-32.6) mmol/L BUN 37 H (3-23) mg/dL Creatinine 2.00 H D (0.4-1.4) mg/dL Est GFR (Non-Af Amer) 31 L D (60-130) mL/min ALT 14 L (19-67) U/L Albumin 1.5 L (3.4-5.0) gm/dl Crossmatch 12/30/19 Range/Units 09:28 WBC (4.0-10.5) K/mm3 RBC (4.2-5.4) M/mm3 Hgb (12.5-16.0) gm/dL Hct (37.0-47.0) % MCV (78-100) fl MCH (27-31) pg MCHC (32-36) g/dl RDW (11.5-14.0) % Immature Gran # (Auto) (0.000-0.0310) K/mm3 Eosinophils % (0.0-3.0) % Neutrophils # (1.3-6.0) K/mm3 Lymphocytes # (1.5-3.5) k/mm3 D-Dimer (0.19-0.49) ug/mL Potassium (3.4-4.6) mmol/L Carbon Dioxide (24-32.6) mmol/L BUN (3-23) mg/dL Creatinine (0.4-1.4) mg/dL Est GFR (Non-Af Amer) (60-130) mL/min ALT (19-67) U/L Albumin (3.4-5.0) gm/dl Crossmatch See Detail Laboratory Results WBC 11.5 K/mm3 (4.0-10.5) H 12/30/19 00:10 RBC 1.96 M/mm3 (4.2-5.4) L 12/30/19 00:10 Hgb 6.7 gm/dL (12.5-16.0) L* D 12/30/19 00:10 Hct 21.4 % (37.0-47.0) L* D 12/30/19 00:10 MCV 109.2 fl (78-100) H 12/30/19 00:10 MCH 34.2 pg (27-31) H 12/30/19 00:10 MCHC 31.3 g/dl (32-36) L 12/30/19 00:10 RDW 17.1 % (11.5-14.0) H 12/30/19 00:10 Plt Count 212 K/mm3 (150-450) 12/30/19 00:10 MPV 11.6 fl (8-12.5) 12/30/19 00:10 Immature Gran % (Auto) 0.30 % (0.001-0.429) 12/30/19 00:10 Immature Gran # (Auto) 0.04 K/mm3 (0.000-0.0310) H 12/30/19 00:10 Neutrophils % 53.1 % (42-75.0) 12/30/19 00:10 Lymphocytes % 35.3 % (20-51) 12/30/19 00:10 Monocytes % 6.2 % (0.0-9) 12/30/19 00:10 Eosinophils % 4.7 % (0.0-3.0) H 12/30/19 00:10 Basophils % 0.4 % (0.0-1.0) 12/30/19 00:10 Nucleated RBC % 0.1 k/mm3 (0-1) 12/30/19 00:10 Neutrophils # 6.1 K/mm3 (1.3-6.0) H 12/30/19 00:10 Lymphocytes # 4.07 k/mm3 (1.5-3.5) H 12/30/19 00:10 Monocytes # 0.7 k/mm3 (0.0-1.0) 12/30/19 00:10 Eosinophils # 0.5 k/mm3 (0.0-0.7) 12/30/19 00:10 Absolute Basophils 0.1 k/mm3 (0.0-0.1) 12/30/19 00:10 D-Dimer 0.57 ug/mL (0.19-0.49) H 12/30/19 00:10 Sodium 135 mmol/L (132-142) 12/30/19 00:10 Plasma Sodium 135 mmol/L (130-142) 12/30/19 00:10 Potassium 5.1 mmol/L (3.4-4.6) H D 12/30/19 00:10 Chloride 104 mmol/L (97-106) 12/30/19 00:10 Carbon Dioxide 23.6 mmol/L (24-32.6) L 12/30/19 00:10 Anion Gap 12.5 mmol/L (6.8-13.8) 12/30/19 00:10 BUN 37 mg/dL (3-23) H 12/30/19 00:10 Creatinine 2.00 mg/dL (0.4-1.4) H D 12/30/19 00:10 Est GFR (Non-Af Amer) 31 mL/min (60-130) L D 12/30/19 00:10 BUN/Creatinine Ratio 18.5 (9.0-21.6) 12/30/19 00:10 Random Glucose 81 mg/dL (70-110) 12/30/19 00:10 Calcium 8.1 mg/dL (7.9-10.9) 12/30/19 00:10 Calcium Adj for Albumin 9.8 mg/dL (8.4-10.2) 12/30/19 00:10 Total Bilirubin 0.3 mg/dL (0.0-1.1) 12/30/19 00:10 AST 40 U/L (0-48) 12/30/19 00:10 ALT 14 U/L (19-67) L 12/30/19 00:10 Alkaline Phosphatase 98 U/L (50-170) 12/30/19 00:10 Total Protein 6.9 gm/dL (6.2-8.2) 12/30/19 00:10 Albumin 1.5 gm/dl (3.4-5.0) L 12/30/19 00:10 Stool Occult Blood Negative 12/30/19 01:20 Blood Type B Positive 12/30/19 09: Antibody Screen Negative 12/30/19 09:28 Crossmatch See Detail 12/30/19 09:28 Assessment/Plan - Assessment/Plan (1) Hematoma Assessment: moderate to severe bruise over upper right arm, tender swelling, ultrasound in ER shows fluid collection, on anticoagulant for a fib, now in sinus rhythm. Problem: Acute (2) Acute anemia Assessment: lost 5 grams of hgb in 2 weeks. probably in right upper arm hematoma. first stool OB negative. plan to monitor, hold blood thinner, and give 2 units blood today. Problem: Acute (3) Anticoagulant effect Assessment: preseumed acute on chronic Problem: Acute (4) Diabetes mellitus, new onset Assessment: sub acute. will decrease baseline insulin dose and follow sugars. Problem: Chronic (5) halfway resident Problem: Chronic (6) Morbid obesity Problem: Chronic (7) ESBL (extended spectrum beta-lactamase) producing bacteria infection Assessment: within the last 2 weeks. multiple organisms. maybe contaminated. will get cath urine now. Problem: Acute (8) Pressure ulcer of left buttock Assessment: continue long term treatment. obtain wound care consult. Problem: Chronic Qualifiers: Pressure injury stage: stage 3 Qualified Code(s): L89.323 - Pressure ulcer of left buttock, stage 3 (9) Status post CVA Problem: Chronic (10) Atrial fibrillation Assessment: will stop anticoagulant and place on telemetry. Problem: Resolved Qualifiers: (11) C. difficile colitis Assessment: has had within the last two weeks. no diarrhea now. will continue oral vancomycin and watch for diarrhea. Problem: Resolved
[2019-12-30 13:14] LABS: Mean Corpuscular Hemoglobin 33.6 pg (27-31); Mean Platelet Volume 12.3 fl (8-12.5); NRBC# 0.1 k/mm3 (0-1); Neutrophil # 6.8 K/mm3 (1.3-6.0); Neutrophil % 58.1 % (42-75.0); Platelet Count 210 K/mm3 (150-450); Red Cell Distribution Width 19.3 % (11.5-14.0); White Blood Count 11.8 K/mm3 (4.0-10.5)
[2019-12-30] MEDS: DILTIAZEM HCL 120 MG CAP.SR.24H PO SCH (13:16)
[2019-12-30 13:32] LABS: Hemoglobin 7.4 gm/dL (12.5-16.0)
[2019-12-30 13:33] LABS: Hematocrit 23.1 % (37.0-47.0)
[2019-12-30 15:05] LABS: Urine Bilirubin Negative (NEGATIVE); Urine Blood 50 /ul (NEGATIVE); Urine Ketone Negative (NEGATIVE); Urine Nitrite Negative (NEGATIVE); Urine Protein Negative (NEGATIVE); Urine Urobilinogen Normal (NORMAL)
[2019-12-30 15:19] LABS: Urine Appearance Clear (CLEAR); Urine Bacteria 3+; Urine Color Yellow; Urine WBC 0-5 /hpf (0-5)
[2019-12-30 15:20] LABS: Urine Amorphous Sediment Few - 1+ (NONE-FEW)
--- NOTE | 2019-12-30 17:14 | CONS ---
HPI - General Date of Service: 12/30/19 Narrative: I was asked to see the patient to evaluate swelling in the right upper arm. Source: RN/MD, RN notes reviewed, old records, other - reports of phone conversations with nurse at [facility] - History of Present Illness Initial Comments: She is a [place] [facility] [place] She has had multiple CVAs, is bedridden and nonverbal. She has a PEG tube for feeds. She was brought to the emergency room here on 12/19/2019 after routine lab work revealed a potassium of 1.6. She was found to have an elevated troponin. She was transferred to [facility] where she was admitted from 12/19/2019 through 12/27/2019. Those records were reviewed. She was discharged back to [facility] [place] with a left antecubital PICC line for antibiotics for urinary tract infection. The report from the care home states she had some swelling on the right upper arm which is increased in size. She was evaluated in the emergency room last night and found to have swelling in the right upper arm which was demonstrated on ultrasound to be a heterogeneous fluid collection. Her hemoglobin was 6.7 which is down from her usual 11 g range. Reports are that she had difficult venous access while at [place], whether a PICC line was attempted in the right arm is unknown. She has been on Eliquis for atrial fibrillation--- currently she is in sinus rhythm. Timing/Duration: unsure Severity: moderate Modifying Factors - (Worsens): Reports: movement Modifying Factors - (Improves): Reports: immobilization Associated Symptoms: other - patient is non-verbal Allergies/Adverse Reactions: Allergies No Known Allergies Allergy (Verified 12/29/19 23:49) Home Medications: Home Medications Medication Instructions Recorded Last Taken carvedilol 3.125 mg tablet 3.125 mg GT BID 05/13/19 Unknown folic acid 1 mg tablet 1 mg GT DAILY 05/13/19 Unknown senna-docusate sodium 2 each GT BID PRN #0 tab 05/13/19 Unknown Acetaminophen [Tylenol] 325 mg GT QID PRN 06/09/19 Unknown cyanocobalamin (vitamin B-12) 1 ml PO DAILY #60 ml 06/26/19 Unknown 1,000 mcg/mL oral drops Apixaban [Eliquis] 5 mg GT BID 09/14/19 Unknown Lactose-Reduced Food/Fiber [Jevity 75 ml GT DAILY 09/14/19 Unknown 1.2 Cody Liquid] Levothyroxine Sodium [Synthroid] 50 mcg GT DAILY 09/14/19 Unknown Whey Protein/Arginine/C/E/Zinc 227 ml GT DAILY 09/14/19 Unknown [Arginaid Extra Liquid] Aspirin [Aspirin Chewable] 81 mg GT DAILY 09/20/19 Unknown Nystatin 15 gm TOPICAL DAILY PRN 09/20/19 Unknown Albuterol Sulfate [Albuterol 2.5 mg INHALATION Q4H PRN vial.neb 09/27/19 Unknown Sulfate 2.5 MG/0.5ML] Diphenoxylate HCl/Atrop Sulf 5 ml NG Q8H liquid 09/27/19 Unknown [Lomotil Liquid] Insulin Glargine,Hum.rec.anlog 40 units SC BID vial 09/27/19 Unknown [Lantus] Rosuvastatin Calcium [Crestor] 20 mg GT HS tab 09/27/19 Unknown sodium polystyrene sulfonate 15 90 ml G-TUBE QID #473 ml 10/11/19 Unknown gram/60 mL oral suspension diltiazem HCl 120 mg capsule,24 120 mg PO DAILY #0.1 cap 10/15/19 Unknown hr,extended release Ertapenem Sodium [Ertapenem] 500 mg IV DAILY 12/30/19 Unknown Insulin Lispro [Humalog] 0 units SC Q6H 12/30/19 Unknown Lorazepam 0.25 mg PO Q4H PRN 12/30/19 Unknown Omeprazole [Prilosec] 20 mg GT DAILY 12/30/19 Unknown Saccharomyces Boulardii [Florastor] 250 mg PO BID 12/30/19 Unknown Vancomycin HCl 250 mg PO QID 12/30/19 Unknown Medications - Medications Current Medications: Current Medications Diltiazem HCl (Cardizem Cd) 120 mg PO Q24H [facility] Stop: 01/29/20 10:31 Last Admin: 12/30/19 13:16 Dose: 120 mg Documented by: Insulin Glargine (Lantus) 20 units SC Q12H [facility] Stop: 01/29/20 10:31 Last Admin: 12/30/19 12:16 Dose: 20 units Documented by: Omeprazole (Prilosec) 40 mg PEG Q12H [facility] Stop: 01/29/20 10:31 Last Admin: 12/30/19 12:17 Dose: 40 mg Documented by: Saccharomyces Boulardii (Florastor) 250 mg PEG Q12H [facility] Stop: 01/29/20 10:31 Last Admin: 12/30/19 12:17 Dose: 250 mg Documented by: Vancomycin HCl (Vancomycin) 125 mg PO Q8H [facility]; Protocol Stop: 01/29/20 10:46 Last Admin: 12/30/19 12:17 Dose: 125 mg Documented by: Review of Systems - Review of Systems Narrative: The patient is nonverbal and review of systems cannot be obtained. She is sleepy but arouses to painful stimulus. Palpation of the right upper arm does elicit discomfort Physical Examination - Exam Narrative: I was able to examine the patient when she was being turned for jolanta-care. Vital Signs: Vital Signs - Last Taken Temp 36.7 C 12/30/19 16:49 Pulse 94 12/30/19 16:49 Resp 16 12/30/19 16:49 BP 147/53 12/30/19 16:49 Pulse Ox 100 12/30/19 16:49 O2 Oxygen Delivery Method Room Air Constitutional: Present: Other - She is asleep unless aroused by painful stimulus. She mumbles incomprehensibly. She does not make eye contact, Obese ENT Exam: Present: other - No acute findings Neck: Present: normal inspection Breasts: Present: Exam deferred Respiratory: Present: no respiratory distress Cardiovascular/Chest: Present: regular rate, rhythm Abdomen: Present: soft, nontender, other - She has a low-profile gastrostomy tube which is patent. No surrounding inflammation Extremity: Present: other - She does not spontaneously move extremities but does grasp the bed rail when on her side She has a well-healed lesion on the lateral aspect of the right lower leg (old records indicate previous open wound/wound VAC) On the medial aspect of the right upper arm there is a firm subcutaneous collection. There is some bruising in the area. The overlying skin is intact/viable. Absent: no calf tenderness Skin Exam: Present: warm/dry. Absent: diaper rash Neurologic: Present: other - She responds to pain only. Mumbles incomprehensibly when stimulated Eye contact: Absent: normal speech Thoughts: Present: other - Thought process cannot be assessed - Results and Findings: Lab/Microbiology results last 24 hrs: Abnormal/Pending Laboratory Last 24 HRS 12/30/19 12/30/19 12/30/19 14:25 13:09 09:28 WBC 11.8 H RBC 2.20 L Hgb 7.4 L* Hct 23.1 L* MCV 105.0 H MCH 33.6 H MCHC RDW 19.3 H Immature Gran # (Auto) 0.05 H Eosinophils % 3.3 H Neutrophils # 6.8 H Lymphocytes # 3.74 H D-Dimer Potassium Carbon Dioxide BUN Creatinine Est GFR (Non-Af Amer) ALT Albumin Urine Blood 50 H Urine RBC 5-10 H Urine Bacteria 3+ H Urine Comment Culture ordered L Crossmatch See Detail 12/30/19 12/30/19 12/30/19 00:10 00:10 00:10 WBC 11.5 H RBC 1.96 L Hgb 6.7 L* D Hct 21.4 L* D MCV 109.2 H MCH 34.2 H MCHC 31.3 L RDW 17.1 H Immature Gran # (Auto) 0.04 H Eosinophils % 4.7 H Neutrophils # 6.1 H Lymphocytes # 4.07 H D-Dimer 0.57 H Potassium 5.1 H D Carbon Dioxide 23.6 L BUN 37 H Creatinine 2.00 H D Est GFR (Non-Af Amer) 31 L D ALT 14 L Albumin 1.5 L Urine Blood Urine RBC Urine Bacteria Urine Comment Crossmatch Ultrasound of the right upper arm reveals a heterogeneous fluid collection. There is compressibility of the venous structures with no evidence of DVT. Pulses are intact - Assessments/Findings (1) Acute anemia Diagnosis(s): The first stool specimen was heme negative. There has been no evidence of vomiting or hematemesis. She does have a past history of GI bleeding. Although this is a significant drop from her hemoglobin on 12/19/2019, it is unclear how much of this is from IV rehydration. If the collection in the right upper arm is a hematoma it would not account for this drop in hemoglobin Problem: Acute (2) Hematoma of arm Diagnosis(s): The exact history of the swelling is unclear. It may have been present when she returned to the care home, however did progress. It could infiltrated IV fluid however it could also be a hematoma from attempted PICC line or potentially trauma--although there was no record of that. The overlying skin is intact and viable. This is unlikely to cause compartment syndrome as it is superficial to the fascia. Opening the hematoma, even with a needle, will create an avenue for infection. 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 Currently the closed wound provide some tamponade, as there is residual anticoagulant effect. Opening the wound would potentially create a chronically bleeding wound. I have examined the patient twice over the course of today and the area has not increased markedly in size. I discussed the case with Dr. Talia Allison. I would not recommend operative intervention at this point. I will continue to follow the patient. Problem: Acute
[2019-12-30 18:59] LABS: Hematocrit 28.3 % (37.0-47.0); Mean Cell Volume 101.4 fl (78-100); Mean Corpuscular Hemoglobin 32.3 pg (27-31); Mean Corpuscular Hgb Conc 31.8 g/dl (32-36); Mean Platelet Volume 12.1 fl (8-12.5); Platelet Count 218 K/mm3 (150-450); Red Blood Count 2.79 M/mm3 (4.2-5.4); Red Cell Distribution Width 21.1 % (11.5-14.0); White Blood Count 11.1 K/mm3 (4.0-10.5)
[2019-12-31] MEDS: VANCOMYCIN HCL 50 MG/ML BTL PO SCH ×3 (03:36→19:30)
[2019-12-31 07:10] LABS: Hematocrit 24.9 % (37.0-47.0); Mean Cell Volume 102.9 fl (78-100); Mean Corpuscular Hemoglobin 33.1 pg (27-31); Mean Corpuscular Hgb Conc 32.1 g/dl (32-36); Mean Platelet Volume 12.2 fl (8-12.5); NRBC# 0.1 k/mm3 (0-1); Neutrophil # 7.4 K/mm3 (1.3-6.0); Neutrophil % 55.3 % (42-75.0); Platelet Count 221 K/mm3 (150-450); Red Blood Count 2.42 M/mm3 (4.2-5.4); Red Cell Distribution Width 22.1 % (11.5-14.0); White Blood Count 13.5 K/mm3 (4.0-10.5)
[2019-12-31 07:29] LABS: Albumin * 1.4 gm/dl (3.4-5.0); Anion Gap 12.5 mmol/L (6.8-13.8); BUN/Creatinine Ratio 16.5 (9.0-21.6); Bilirubin, Total 0.4 mg/dL (0.0-1.1); Ca. Corrected For Albumin 9.7 mg/dL (8.4-10.2); Calcium * 7.9 mg/dL (7.9-10.9); Carbon Dioxide 23.8 mmol/L (24-32.6); Potassium 5.3 mmol/L (3.4-4.6); Total Protein 6.5 gm/dL (6.2-8.2)
[2019-12-31] MEDS: LEVOTHYROXINE SODIUM 50 MCG TABLET PEG SCH (07:57)
[2019-12-31] MEDS: FOLIC ACID 1 MG TABLET PEG SCH (08:05)
[2019-12-31] MEDS: CYANOCOBALAMIN 1,000 MCG TABLET PEG SCH (08:05)
[2019-12-31] MEDS: DILTIAZEM HCL 120 MG CAP.SR.24H PO SCH (10:30)
[2019-12-31] MEDS: SACCHAROMYCES BOULARDII 250 MG CAPSULE PEG SCH ×2 (10:31→22:35)
[2019-12-31] MEDS: INSULIN GLARGINE,HUM.REC.ANLOG 100 UNITS/ML VIAL SC SCH ×2 (10:37→22:38)
[2019-12-31] MEDS: OMEPRAZOLE 2 MG/ML BTL PEG SCH ×2 (10:58→22:34)
[2019-12-31 11:37] LABS: Hematocrit 25.9 % (37.0-47.0); Hemoglobin 8.6 gm/dL (12.5-16.0); Mean Cell Volume 99.6 fl (78-100); Mean Corpuscular Hemoglobin 33.1 pg (27-31); Mean Corpuscular Hgb Conc 33.2 g/dl (32-36); Mean Platelet Volume 12.4 fl (8-12.5); Platelet Count 221 K/mm3 (150-450); Red Cell Distribution Width 21.6 % (11.5-14.0); White Blood Count 13.4 K/mm3 (4.0-10.5)
[2019-12-31 11:42] LABS: Anion Gap 13.3 mmol/L (6.8-13.8); BUN/Creatinine Ratio 16.1 (9.0-21.6); Calcium * 8.3 mg/dL (7.9-10.9); Carbon Dioxide 22.5 mmol/L (24-32.6); Estimated Creat Clear 18.2; Potassium 5.8 mmol/L (3.4-4.6)
--- NOTE | 2019-12-31 12:47 | PN ---
Subjective - Date and Time Seen Date: 12/31/19 Time: 12:00 Subjective Narrative: This is a 74 y/o black woman who resides at the [facility] because of vascular dementia, inablitiy to care for herself and PEG tube feeds and meds due to discoordinated swallowing with aspiration. She presented in the wee hours of yesterday morning to the [facility] ER because of a swollen right upper arm. An ultrasound then showed a fluid collection in her right upper arm. The ER doctor mentioned surgical referral at time of admission, and our surgeon, Dr. Hardy, has seen her, recommending no surgical intervention at the present time.. She was admitted to our director phone doctor. When I became aware of her admission, I call the surgeon who was director phone for today and explained the situation, which he and I discussed. I then ordererd a surgery consult as an order. She has had several strokes, and thereby vascular dementia. She also has had several dvt's and pulmonary embolisms, as well as atrial fibrillation, for which reason she has been taking anticoagulant. She is now in sinus rhythm, and because the right upper arm swelling may represent a hematoma, we have stopped her anticoagulant. She came to the [facility] ER two weeks ago and was found to have dehydration, with hypokalemia and elevated troponin. She was transferred then to [facility] because we had no availbable beds. She was treated and returned to the alf. The admission early yesterday morning was apparently due to swelling and pain in her right upper arm. Mention was made of infiltrated IV, but I have no specific documentation of this. Ultrasound today in the ER here showed a collection of fluid in the right upper arm. In the last 2 weeks her hgb has dropped 5 grams. The first stool for OB yesterday was negative. There persists moderate to severe brusing over the right upper arm, and I suspect hematoma. Within the last two weeks in [place] she had a urine culture which grew: ESBL E. coli, Enteroccocus faecalis, Strep mutans, Klebsiella oxytoca and Proteus mirabilis. She was placed on IV Ertapenem for what may have been a contaminated culture. Her wbc count here here has remained essentially normal. Also in the last two weeks, she has been diagnosed with diarrhea due to C. Dif, treated with oral vancomycin and probiotics. UA here is not consistent with current UTI. her initial urine culture is no growth. Her hgb on admission was 6.7. This morning it is 8.6. Her potassium is inc reasing, perhaps because of red cell lysis and/or tissue damage in the right upper arm. We will add kayexylate to her treatment. Vitals are fairly stable and not bad. I did not inspect her left buttock pressure sore today. Objective - Review of Systems Generalized/Overall Review: Reports: No Symptoms Reported - unable to provide an y history herself due to chronic dementia. - Vitals Vitals: Last Vital Signs Temp 36.9 C 12/31/19 07:25 Pulse 95 12/31/19 10:30 Resp 18 12/31/19 07:25 BP 141/47 12/31/19 10:30 Pulse Ox 100 12/31/19 07:25 - Abnormal Lab Findings Abnormal Lab Findings: Abnormal Lab Results 12/30/19 12/30/19 12/30/19 Range/Units 09:28 13:09 14:25 WBC 11.8 H (4.0-10.5) K/mm3 RBC 2.20 L (4.2-5.4) M/mm3 Hgb 7.4 L* (12.5-16.0) gm/dL Hct 23.1 L* (37.0-47.0) % MCV 105.0 H (78-100) fl MCH 33.6 H (27-31) pg MCHC (32-36) g/dl RDW 19.3 H (11.5-14.0) % Immature Gran # (Auto) 0.05 H (0.000-0.0310) K/mm3 Eosinophils % 3.3 H (0.0-3.0) % Neutrophils # 6.8 H (1.3-6.0) K/mm3 Lymphocytes # 3.74 H (1.5-3.5) k/mm3 Potassium (3.4-4.6) mmol/L Chloride (97-106) mmol/L Carbon Dioxide (24-32.6) mmol/L BUN (3-23) mg/dL Creatinine (0.4-1.4) mg/dL Est GFR (Non-Af Amer) (60-130) mL/min Random Glucose (70-110) mg/dL AST (0-48) U/L ALT (19-67) U/L Albumin (3.4-5.0) gm/dl Urine Blood 50 H (NEGATIVE) /ul Urine RBC 5-10 H (0-5) /hpf Urine Bacteria 3+ H (NONE) Urine Comment Culture ordered L Crossmatch See Detail 12/30/19 12/31/19 12/31/19 Range/Units 18:48 07:00 07:00 WBC 11.1 H 13.5 H D (4.0-10.5) K/mm3 RBC 2.79 L 2.42 L (4.2-5.4) M/mm3 Hgb 9.0 L 8.0 L (12.5-16.0) gm/dL Hct 28.3 L 24.9 L (37.0-47.0) % MCV 101.4 H 102.9 H (78-100) fl MCH 32.3 H 33.1 H (27-31) pg MCHC 31.8 L (32-36) g/dl RDW 21.1 H 22.1 H (11.5-14.0) % Immature Gran # (Auto) 0.06 H (0.000-0.0310) K/mm3 Eosinophils % (0.0-3.0) % Neutrophils # 7.4 H (1.3-6.0) K/mm3 Lymphocytes # 4.88 H (1.5-3.5) k/mm3 Potassium 5.3 H (3.4-4.6) mmol/L Chloride 107 H (97-106) mmol/L Carbon Dioxide 23.8 L (24-32.6) mmol/L BUN 32 H (3-23) mg/dL Creatinine 1.94 H (0.4-1.4) mg/dL Est GFR (Non-Af Amer) 32 L (60-130) mL/min Random Glucose (70-110) mg/dL AST 50 H (0-48) U/L ALT 13 L (19-67) U/L Albumin 1.4 L (3.4-5.0) gm/dl Urine Blood (NEGATIVE) /ul Urine RBC (0-5) /hpf Urine Bacteria (NONE) Urine Comment Crossmatch 12/31/19 12/31/19 Range/Units 11:25 11:25 WBC 13.4 H (4.0-10.5) K/mm3 RBC 2.60 L (4.2-5.4) M/mm3 Hgb 8.6 L (12.5-16.0) gm/dL Hct 25.9 L (37.0-47.0) % MCV (78-100) fl MCH 33.1 H (27-31) pg MCHC (32-36) g/dl RDW 21.6 H (11.5-14.0) % Immature Gran # (Auto) (0.000-0.0310) K/mm3 Eosinophils % (0.0-3.0) % Neutrophils # (1.3-6.0) K/mm3 Lymphocytes # (1.5-3.5) k/mm3 Potassium 5.8 H (3.4-4.6) mmol/L Chloride (97-106) mmol/L Carbon Dioxide 22.5 L (24-32.6) mmol/L BUN 31 H (3-23) mg/dL Creatinine 1.92 H (0.4-1.4) mg/dL Est GFR (Non-Af Amer) 33 L (60-130) mL/min Random Glucose 118 H (70-110) mg/dL AST (0-48) U/L ALT (19-67) U/L Albumin (3.4-5.0) gm/dl Urine Blood (NEGATIVE) /ul Urine RBC (0-5) /hpf Urine Bacteria (NONE) Urine Comment Crossmatch - Exam Constitutional: Present: Alert, No distress. Absent: Oriented x3, Obese ENT Exam: Present: normal ENT inspection Neck: Absent: lymphadenopathy (R), lymphadenopathy (L), thyromegaly Breasts: Present: Exam deferred Respiratory: Present: lungs clear, no respiratory distress Cardiovascular/Chest: Present: regular rate, rhythm, no gallop, no JVD, no murmur, edema - mild stable both lower legs Abdomen: Present: Normal bowel sounds, soft, nontender, no hepatospenomegaly, no masses, obese /Rectal: Present: Exam deferred Extremity: Present: normal capillary refill, lower extremity edema Skin Exam: Present: normal color, warm/dry, no cyanosis Lymphatic: Present: no adenopathy Neurologic: Present: motor weakness. Absent: normal mood/affect Appearance: Present: appropriate appearance. Absent: appropriate insight, neat Eye contact: Absent: normal speech, belligerent Thoughts: Absent: normal thought pattern - right upper arm moderately to severely swollen with bruising. looks about the same as yesterday. will start measuring circumference daily. Assessment/Plan - Problems/Diagnosis (1) Hyperkalemia Problem: Acute Narrative: potassium continues to rise. maybe due to red cell lysis and/or tissue damage. will add kayexylate to her treatment and monitor. (2) Hematoma Problem: Acute (3) Acute anemia Problem: Acute Narrative: hgb 8.6 will continue to check stools and follow blood count. had 2 units of blood on the day of admission. (4) Anticoagulant effect Problem: Acute (5) Diabetes mellitus, new onset Problem: Chronic (6) [facility] resident Problem: Chronic (7) Morbid obesity Problem: Chronic (8) ESBL (extended spectrum beta-lactamase) producing bacteria infection Problem: Acute (9) Pressure ulcer of left buttock Problem: Chronic Qualifiers: Pressure injury stage: stage 3 Qualified Code(s): L89.323 - Pressure ulcer of left buttock, stage 3 (10) Status post CVA Problem: Chronic (11) Atrial fibrillation Problem: Resolved Qualifiers: (12) C. difficile colitis Problem: Resolved
[2019-12-31] MEDS: SODIUM POLYSTYRENE SULFON/SORB 15 G/60 ML ORAL.SUSP PEG SCH ×3 (14:03→21:06)
--- NOTE | 2019-12-31 14:25 | CONS ---
HPI - General Date of Service: 12/31/19 Source: RN notes reviewed - History of Present Illness Initial Comments: Patient is a 74 year old female, admitted to the hospital with several recent conditions, including acute anemia, C difficile, swollen right arm, hematoma and an extended spectrum beta lactamase bacterial infection. It was noted that she has several open areas on the sacrum. The patient is unable to communicate. The nursing staff present state that the open areas were present during a prior admission in September 2019. Treatment is unknown. Her medical history is extensive, and notable for morbid obesity, altered mental status, speech/language deficit, CVA, muscle wasting and chronic ulcers. Timing/Duration: constant Allergies/Adverse Reactions: Allergies No Known Allergies Allergy (Verified 12/29/19 23:49) Home Medications: Home Medications Medication Instructions Recorded Last Taken carvedilol 3.125 mg tablet 3.125 mg GT BID 05/13/19 Unknown folic acid 1 mg tablet 1 mg GT DAILY 05/13/19 Unknown senna-docusate sodium 2 each GT BID PRN #0 tab 05/13/19 Unknown Acetaminophen [Tylenol] 325 mg GT QID PRN 06/09/19 Unknown cyanocobalamin (vitamin B-12) 1 ml PO DAILY #60 ml 06/26/19 Unknown 1,000 mcg/mL oral drops Apixaban [Eliquis] 5 mg GT BID 09/14/19 Unknown Lactose-Reduced Food/Fiber [Jevity 75 ml GT DAILY 09/14/19 Unknown 1.2 Cody Liquid] Levothyroxine Sodium [Synthroid] 50 mcg GT DAILY 09/14/19 Unknown Whey Protein/Arginine/C/E/Zinc 227 ml GT DAILY 09/14/19 Unknown [Arginaid Extra Liquid] Aspirin [Aspirin Chewable] 81 mg GT DAILY 09/20/19 Unknown Nystatin 15 gm TOPICAL DAILY PRN 09/20/19 Unknown Albuterol Sulfate [Albuterol 2.5 mg INHALATION Q4H PRN vial.neb 09/27/19 Unknown Sulfate 2.5 MG/0.5ML] Diphenoxylate HCl/Atrop Sulf 5 ml NG Q8H liquid 09/27/19 Unknown [Lomotil Liquid] Insulin Glargine,Hum.rec.anlog 40 units SC BID vial 09/27/19 Unknown [Lantus] Rosuvastatin Calcium [Crestor] 20 mg GT HS tab 09/27/19 Unknown sodium polystyrene sulfonate 15 90 ml G-TUBE QID #473 ml 10/11/19 Unknown gram/60 mL oral suspension diltiazem HCl 120 mg capsule,24 120 mg PO DAILY #0.1 cap 10/15/19 Unknown hr,extended release Ertapenem Sodium [Ertapenem] 500 mg IV DAILY 12/30/19 Unknown Insulin Lispro [Humalog] 0 units SC Q6H 12/30/19 Unknown Lorazepam 0.25 mg PO Q4H PRN 12/30/19 Unknown Omeprazole [Prilosec] 20 mg GT DAILY 12/30/19 Unknown Saccharomyces Boulardii [Florastor] 250 mg PO BID 12/30/19 Unknown Vancomycin HCl 250 mg PO QID 12/30/19 Unknown Medications - Medications Current Medications: Current Medications Cyanocobalamin (Vitamin B-12) 1,000 mcg PEG DAILY [facility] Stop: 01/30/20 09:01 Last Admin: 12/31/19 08:05 Dose: 1,000 mcg Documented by: Diltiazem HCl (Cardizem Cd) 120 mg PO Q24H [facility] Stop: 01/29/20 10:31 Last Admin: 12/31/19 10:30 Dose: 120 mg Documented by: Folic Acid (Folic Acid) 1 mg PEG DAILY [facility] Stop: 01/30/20 09:01 Last Admin: 12/31/19 08:05 Dose: 1 mg Documented by: Insulin Glargine (Lantus) 20 units SC Q12H [facility] Stop: 01/29/20 10:31 Last Admin: 12/31/19 10:37 Dose: 20 units Documented by: Levothyroxine Sodium (Synthroid) 50 mcg PEG DAILY@0700 [facility] Stop: 01/30/20 07:01 Last Admin: 12/31/19 07:57 Dose: 50 mcg Documented by: Omeprazole (Prilosec) 40 mg PEG Q12H [facility] Stop: 01/29/20 10:31 Last Admin: 12/31/19 10:58 Dose: 40 mg Documented by: Saccharomyces Boulardii (Florastor) 250 mg PEG Q12H [facility] Stop: 01/29/20 10:31 Last Admin: 12/31/19 10:31 Dose: 250 mg Documented by: Vancomycin HCl (Vancomycin) 125 mg PO Q8H [facility]; Protocol Stop: 10/28/20 10:46 Last Admin: 12/31/19 10:57 Dose: 125 mg Documented by: Review of Systems - Review of Systems Narrative: unable to obtain, as patient does not communicate Physical Examination - Exam Vital Signs: Vital Signs - Last Taken Temp 36.9 C 12/31/19 07:25 Pulse 95 12/31/19 10:30 Resp 18 12/31/19 07:25 BP 141/47 12/31/19 10:30 Pulse Ox 100 12/31/19 07:25 O2 Oxygen Delivery Method Room Air Comprehensive Narative: 12/31/19 14:19 patient's speech is garbled, she does not respond to questions or follow conversation Constitutional: Present: Morbidly obese Skin Exam: Present: warm/dry, other - multiple open areas on the sacrum. small amount of serous drainage. relatively superficial, no bone or tendon visible. no purulent drainage. large amount of red granulation tissue present. no necrosis. no induration. - Results and Findings: Lab/Microbiology results last 24 hrs: Abnormal/Pending Laboratory Last 24 HRS 12/31/19 12/31/19 12/31/19 11:25 11:25 07:00 WBC 13.4 H RBC 2.60 L Hgb 8.6 L Hct 25.9 L MCV MCH 33.1 H MCHC RDW 21.6 H Immature Gran # (Auto) Neutrophils # Lymphocytes # Potassium 5.8 H 5.3 H Chloride 107 H Carbon Dioxide 22.5 L 23.8 L BUN 31 H 32 H Creatinine 1.92 H 1.94 H Est GFR (Non-Af Amer) 33 L 32 L Random Glucose 118 H AST 50 H ALT 13 L Albumin 1.4 L Urine Blood Urine RBC Urine Bacteria Urine Comment Crossmatch 12/31/19 12/30/19 12/30/19 07:00 18:48 14:25 WBC 13.5 H D 11.1 H RBC 2.42 L 2.79 L Hgb 8.0 L 9.0 L Hct 24.9 L 28.3 L MCV 102.9 H 101.4 H MCH 33.1 H 32.3 H MCHC 31.8 L RDW 22.1 H 21.1 H Immature Gran # (Auto) 0.06 H Neutrophils # 7.4 H Lymphocytes # 4.88 H Potassium Chloride Carbon Dioxide BUN Creatinine Est GFR (Non-Af Amer) Random Glucose AST ALT Albumin Urine Blood 50 H Urine RBC 5-10 H Urine Bacteria 3+ H Urine Comment Culture ordered L Crossmatch 12/30/19 09:28 WBC RBC Hgb Hct MCV MCH MCHC RDW Immature Gran # (Auto) Neutrophils # Lymphocytes # Potassium Chloride Carbon Dioxide BUN Creatinine Est GFR (Non-Af Amer) Random Glucose AST ALT Albumin Urine Blood Urine RBC Urine Bacteria Urine Comment Crossmatch See Detail Culture 12/30/19 14:25 Urine Culture - Preliminary Urine,Catheterized No Growth 12/30/19 06:20 - Final Nares MRSA Negative - Assessments/Findings (1) Sacral decubitus ulcer, stage II Diagnosis(s): The patient is frequently incontinent of bowel and bladder. Recommend using Aquacel Ag to the open areas, covered with a mepilex border. This can be changed daily, and PRN. The area will be washed with soap and water at dressing changes. Continue with excellent off-loading. Problem: Acute
[2020-01-01] MEDS: VANCOMYCIN HCL 50 MG/ML BTL PO SCH ×3 (03:33→19:14)
[2020-01-01 07:15] LABS: Hematocrit 24.6 % (37.0-47.0); Mean Cell Volume 105.1 fl (78-100); Mean Corpuscular Hemoglobin 32.9 pg (27-31); Mean Corpuscular Hgb Conc 31.3 g/dl (32-36); Mean Platelet Volume 11.2 fl (8-12.5); Neutrophil # 5.7 K/mm3 (1.3-6.0); Neutrophil % 49.9 % (42-75.0); Platelet Count 238 K/mm3 (150-450); Red Blood Count 2.34 M/mm3 (4.2-5.4); Red Cell Distribution Width 21.4 % (11.5-14.0); White Blood Count 11.4 K/mm3 (4.0-10.5)
[2020-01-01 07:21] LABS: Anion Gap 11.6 mmol/L (6.8-13.8); BUN/Creatinine Ratio 14.7 (9.0-21.6); Calcium * 8.1 mg/dL (7.9-10.9); Carbon Dioxide 24.2 mmol/L (24-32.6); Estimated Creat Clear 17.7; Potassium 4.8 mmol/L (3.4-4.6)
[2020-01-01 07:31] LABS: Hemoglobin 7.7 gm/dL (12.5-16.0)
--- NOTE | 2020-01-01 07:31 | PN ---
Subjective - Date and Time Seen Date: 01/01/20 Time: 06:40 Subjective Narrative: This 74 y/o black woman resides at the [facility] because of vascular dementia, inablitiy to care for herself and PEG tube feeds and meds due to discoordinated swallowing with aspiration. 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 An ultrasound then showed a fluid collection in her right upper arm. Our surgeon, Dr. Hardy, has seen her, recommending no surgical intervention at the present time.. She was admitted to our transportation sales consultant doctor. She has had several strokes, and thereby vascular dementia. She also has had s everal dvt's and pulmonary embolisms, as well as atrial fibrillation, for which reason she has been taking anticoagulant. She is now in sinus rhythm, and because the right upper arm swelling may represent a hematoma, we have stopped her anticoagulant. She came to the [facility] ER two weeks ago and was found to have dehydration, with hypokalemia and elevated troponin. She was transferred then to [facility] because we had no availbable beds. She was treated and returned to the halfway. She was again in the hospital at [facility] last week, having been discharged last Monday evening. The admission early yesterday morning was apparently due to swelling and pain in her right upper arm. Mention was made of infiltrated IV, but I have no specific documentation of this. Ultrasound today in the ER here showed a collection of fluid in the right upper arm. In the last 2 weeks her hgb has dropped 5 grams. All of her stool OB's was negative. There persists moderate to severe brusing over the right upper arm, and I suspect hematoma. There are a few small intact blisters on the anterior right upper arm. Within the last two weeks in [place] she had a urine culture which grew: ESBL E. coli, Enteroccocus faecalis, Strep mutans, Klebsiella oxytoca and Proteus mirabilis. She was placed on IV Ertapenem for what may have been a contaminated culture. Her wbc count here here has remained essentially normal. Also in the last two weeks, she has been diagnosed with diarrhea due to C. Dif, treated with oral vancomycin and probiotics. Her final urine culture is negative for growth. Her hgb on admission was 6.7. Yesterday morning it was 8.6. Her potassium has been increasing, perhaps because of red cell lysis and/or tissue damage in the right upper arm. Yesterday we added kayexylate to her treatment. Vitals are fairly stable and not bad. Finger stick blood sugars have been mainly in the low 100's. This morning blood work reports are still pending. I read the wound center consult report and will follow their recommendations. Objective - Review of Systems Generalized/Overall Review: Reports: No Symptoms Reported - unable to provide due to dementia. - Vitals Vitals: Last Vital Signs Temp 36.5 C 01/01/20 02:15 Pulse 104 H 01/01/20 02:15 Resp 16 01/01/20 02:15 BP 134/54 01/01/20 02:15 Pulse Ox 99 01/01/20 02:15 - Abnormal Lab Findings Abnormal Lab Findings: Abnormal Lab Results 12/31/19 12/31/19 12/31/19 Range/Units 07:00 11:25 11:25 WBC 13.4 H (4.0-10.5) K/mm3 RBC 2.60 L (4.2-5.4) M/mm3 Hgb 8.6 L (12.5-16.0) gm/dL Hct 25.9 L (37.0-47.0) % MCH 33.1 H (27-31) pg RDW 21.6 H (11.5-14.0) % Potassium 5.3 H 5.8 H (3.4-4.6) mmol/L Chloride 107 H (97-106) mmol/L Carbon Dioxide 23.8 L 22.5 L (24-32.6) mmol/L BUN 32 H 31 H (3-23) mg/dL Creatinine 1.94 H 1.92 H (0.4-1.4) mg/dL Est GFR (Non-Af Amer) 32 L 33 L (60-130) mL/min Random Glucose 118 H (70-110) mg/dL AST 50 H (0-48) U/L ALT 13 L (19-67) U/L Albumin 1.4 L (3.4-5.0) gm/dl - Exam Constitutional: Present: Alert, No distress, Obese. Absent: Oriented x3 ENT Exam: Present: normal ENT inspection Neck: Absent: normal inspection, lymphadenopathy (L), thyromegaly Breasts: Present: Exam deferred Respiratory: Present: lungs clear, no respiratory distress Cardiovascular/Chest: Present: regular rate, rhythm, no JVD, no murmur Abdomen: Present: Normal bowel sounds, soft, nontender, nondistended, no hepatospenomegaly, no masses, obese /Rectal: Present: Exam deferred Extremity: Present: lower extremity edema - mild stable, other - right upper arm swelling seems to be a little less today. there is moderate bruising. there are some tiny intact blisters on the anterior right upper arm. I did not inspect her bottom pressure sore. Lymphatic: Present: no adenopathy Neurologic: Present: disoriented x 3. Absent: normal mood/affect Appearance: Present: appropriate appearance. Absent: appropriate insight Eye contact: Present: good eye contact. Absent: normal speech Thoughts: Absent: normal thought pattern Assessment/Plan - Problems/Diagnosis (1) Hyperkalemia Problem: Acute Narrative: labs pending. what we do today depends on the results. we will continue kayexylate. (2) Hematoma Problem: Acute Narrative: seems a little smaller. plan is to continue to monitor. (3) Acute anemia Problem: Acute Narrative: labs this morning still pending. what we do today will depend in part on the results. (4) Anticoagulant effect Problem: Acute (5) Diabetes mellitus, new onset Problem: Chronic Narrative: blood fingersticks close to 100. will decrease insulin dose slightly. (6) correction resident Problem: Chronic (7) Morbid obesity Problem: Chronic (8) ESBL (extended spectrum beta-lactamase) producing bacteria infection Problem: Resolved Narrative: urine culture here no growth. (9) Pressure ulcer of left buttock Problem: Chronic Qualifiers: Pressure injury stage: stage 3 Qualified Code(s): L89.323 - Pressure ulcer of left buttock, stage 3 Narrative: will use aquacel AG and mepilex (10) Status post CVA Problem: Chronic (11) Atrial fibrillation Problem: Resolved Qualifiers: (12) C. difficile colitis Problem: Resolved
--- NOTE | 2020-01-01 07:37 | PN ---
Jaimie Note - Interim Date: 01/01/20 Time: 07:33 Narrative: 01/01/20 07:33 Lab called hgb results just now, 7.7 down from 8.6 yesterday. Trend is not yet apparent. May continue downward. If enough of a decline, may require another blood transfusion and further deeper investigation into cause for blood loss. For the above reasons, she needs to remain in the hospital. We will check another blood count tomorrow and transfuse if it becomes necessary. If hgb turns out to remain stable we will return her to the skilled nursing tomorrow.
--- NOTE | 2020-01-01 08:09 | PN ---
Progess Note - Interim Date: 01/01/20 Time: 08:08 Narrative: 01/01/20 08:08 Potassium has dropped to 4.8 Will decrease kayexylate to tid and check BMP tomorrow. If hgb stable, and potassium is about the same or lower, she can probably go back to the shelter.
--- NOTE | 2020-01-01 08:20 | PN ---
Progess Note - Interim Date: 01/01/20 Time: 08:19 Narrative: 01/01/20 08:19 Large Hematoma from unknown etiology from anticoagulant effect Large Hematoma not related to anticoagulant effect Above both reflect further definition of her hematoma. Exact cause not known. Possibly from IV attempt possibly direct trauma possibly spontaneous. It part, related to anticoagulant, which has been stopped.
[2020-01-01] MEDS: FOLIC ACID 1 MG TABLET PEG SCH (08:25)
[2020-01-01] MEDS: LEVOTHYROXINE SODIUM 50 MCG TABLET PEG SCH (08:26)
[2020-01-01] MEDS: CYANOCOBALAMIN 1,000 MCG TABLET PEG SCH (08:26)
[2020-01-01] MEDS: INSULIN GLARGINE,HUM.REC.ANLOG 100 UNITS/ML VIAL SC SCH ×2 (08:27→19:16)
[2020-01-01] MEDS: SODIUM POLYSTYRENE SULFON/SORB 15 G/60 ML ORAL.SUSP PEG SCH ×3 (08:44→17:12)
--- NOTE | 2020-01-01 08:53 | PN ---
Progess Note - Interim Date: 01/01/20 Time: 08:52 Narrative: 01/01/20 08:52 patient has stage 3 chronic renal failure, cause is multi factorial including long standing hypertension and atherosclerosis. also some mild dehydration on this admission. treatment at this point is maintaining adequate hydration via PEG and maintaining normal blood pressure.
[2020-01-01] MEDS: DILTIAZEM HCL 120 MG CAP.SR.24H PO SCH (10:03)
[2020-01-01] MEDS: SACCHAROMYCES BOULARDII 250 MG CAPSULE PEG SCH ×2 (10:03→21:34)
[2020-01-01] MEDS: OMEPRAZOLE 2 MG/ML BTL PEG SCH ×2 (10:48→21:33)
--- NOTE | 2020-01-01 10:54 | PN ---
Progess Note - Interim Date: 01/01/20 Time: 10:53 Narrative: 01/01/20 10:53 The two separate hospital admissions recently at [facility] mentioned throughout this record are in fact ONE: from 12/19/19-12/27/19.
[2020-01-01] MEDS: LORAZEPAM 2 MG/ML ORAL.CONC PO PRN ×2 (12:34→19:45)
[2020-01-02] MEDS: VANCOMYCIN HCL 50 MG/ML BTL PO SCH ×2 (02:14→10:02)
[2020-01-02] MEDS: LORAZEPAM 2 MG/ML ORAL.CONC PO PRN ×2 (03:01→11:16)
[2020-01-02 06:51] LABS: Hematocrit 24.9 % (37.0-47.0); Mean Cell Volume 107.8 fl (78-100); Mean Corpuscular Hemoglobin 32.9 pg (27-31); Mean Corpuscular Hgb Conc 30.5 g/dl (32-36); Mean Platelet Volume 11.6 fl (8-12.5); Neutrophil # 6.8 K/mm3 (1.3-6.0); Neutrophil % 54.4 % (42-75.0); Platelet Count 250 K/mm3 (150-450); Red Blood Count 2.31 M/mm3 (4.2-5.4); Red Cell Distribution Width 21.2 % (11.5-14.0); White Blood Count 12.6 K/mm3 (4.0-10.5)
[2020-01-02 06:59] LABS: Anion Gap 13.2 mmol/L (6.8-13.8); BUN/Creatinine Ratio 15.9 (9.0-21.6); Calcium * 7.9 mg/dL (7.9-10.9); Carbon Dioxide 24.6 mmol/L (24-32.6); Estimated Creat Clear 18.5; Potassium 4.8 mmol/L (3.4-4.6)
[2020-01-02] MEDS: LEVOTHYROXINE SODIUM 50 MCG TABLET PEG SCH (07:02)
[2020-01-02] MEDS: INSULIN GLARGINE,HUM.REC.ANLOG 100 UNITS/ML VIAL SC SCH (07:04)
[2020-01-02 07:31] LABS: Hemoglobin 7.6 gm/dL (12.5-16.0)
--- NOTE | 2020-01-02 07:39 | DS ---
(1) Hyperkalemia Problem: Resolved (2) Hematoma Diagnosis(s): Uncertain cause.......perhaps IV start attempt, perhaps direct trauma. Augmented by anticoagulant and by aspirin. Problem: Acute (3) Acute anemia Problem: Acute (4) Anticoagulant effect Problem: Acute (5) Diabetes mellitus, new onset Problem: Chronic (6) [facility]DC resident Problem: Chronic (7) Morbid obesity Problem: Chronic (8) ESBL (extended spectrum beta-lactamase) producing bacteria infection Problem: Resolved (9) Pressure ulcer of left buttock Problem: Chronic Qualifiers: Pressure injury stage: stage 3 Qualified Code(s): L89.323 - Pressure ulcer of left buttock, stage 3 (10) Status post CVA Problem: Chronic (11) Atrial fibrillation Problem: Resolved Qualifiers: (12) C. difficile colitis Problem: Resolved (13) Renal insufficiency Diagnosis(s): due to hypertension, diabetes and atherosclerosis. worsened this admission by dehydration, now resolved. Problem: Chronic Date of Discharge:: 01/02/20 Hospital Course: This 74 y/o black woman resides at the [facility] because of vascular dementia, inablitiy to care for herself and PEG tube feeds and meds due to discoordinated swallowing with aspiration. 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 An ultrasound then showed a fluid collection in her right upper arm. Our surgeon, Dr. Hardy, saw her, recommending no surgical intervention. 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 She has had several strokes, and thereby vascular dementia. She also has had several dvt's and pulmonary embolisms, as well as atrial fibrillation, for which reason she has been taking anticoagulant. She is now in sinus rhythm, and because the right upper arm swelling may represent a hematoma, we have stopped her anticoagulant and aspirin. She came to the [facility] ER two weeks ago and was found to have dehydration, with hypokalemia and elevated troponin. She was transferred then to [facility] because we had no availbable beds. She was in the hospital at [facility] from 12/18-12/27/19. The admission three days ago here was due to swelling and pain in her right upper arm. Mention was made of infiltrated IV, but I have no specific documentation of this. In the last 2 weeks her hgb had dropped 5 grams. All of her stool OB's this admission were negative. There persists moderate to severe brusing over the right upper arm, consistent with hematoma. There are a few small intact blisters on the anterior right upper arm. The arm swelling appears to be slowly decreasing. While here, the wound center was consulted regarding the pressure sore on her bottom. We have followed her recommendation which we will continue at the shelter. Within the last two weeks in [place] she had a urine culture which grew: ESBL E. coli, Enteroccocus faecalis, Strep mutans, Klebsiella oxytoca and Proteus mirabilis. She was placed on IV Ertapenem for what may have been a contaminated culture. Her wbc count here here has remained essentially normal. Also in the last two weeks, she has been diagnosed with diarrhea due to C. Dif, treated with oral vancomycin and probiotics. Her final cath urine culture here is negative for growth. Her hgb on admission was 6.7. She was given 2 units prbc's IV. It now appears to be stable and will be followed as an outpatient. Her potassium had been increasing, perhaps because of red cell lysis and/or tissue damage in the right upper arm, or more likely, related to chronic renal failure. Two days ago we added kayexylate to her treatment. Her potassium has normalized, and appears stable. Vitals have been stable and not bad. Finger stick blood sugars have been mainly in the low 100's. Prognosis is generally poor. Procedures Performed: none Results and Findings: Lab Pending Results 12/30/19 00:10: WBC 11.5 H, RBC 1.96 L, Hgb 6.7 L* D, Hct 21.4 L* D, MCV 109.2 H, MCH 34.2 H, MCHC 31.3 L, RDW 17.1 H, Plt Count 212, MPV 11.6, Immature Gran % (Auto) 0.30, Immature Gran # (Auto) 0.04 H, Neutrophils % 53.1, Lymphocytes % 35.3, Monocytes % 6.2, Eosinophils % 4.7 H, Basophils % 0.4, Nucleated RBC % 0.1, Neutrophils # 6.1 H, Lymphocytes # 4.07 H, Monocytes # 0.7, Eosinophils # 0.5, Absolute Basophils 0.1 12/30/19 00:10: Sodium 135, Plasma Sodium 135, Potassium 5.1 H D, Chloride 104, Carbon Dioxide 23.6 L, Anion Gap 12.5, BUN 37 H, Creatinine 2.00 H D, Est GFR (Non-Af Amer) 31 L D, BUN/Creatinine Ratio 18.5, Random Glucose 81, Calcium 8.1, Calcium Adj for Albumin 9.8, Total Bilirubin 0.3, AST 40, ALT 14 L, Alkaline Phosphatase 98, Total Protein 6.9, Albumin 1.5 L 12/30/19 00:10: D-Dimer 0.57 H 12/30/19 01:20: Stool Occult Blood Negative 12/30/19 09:28: Blood Type B Positive, Antibody Screen Negative, Crossmatch See Detail 12/30/19 12:00: Stool Occult Blood Negative 12/30/19 13:09: WBC 11.8 H, RBC 2.20 L, Hgb 7.4 L*, Hct 23.1 L*, MCV 105.0 H, MCH 33.6 H, MCHC 32.0, RDW 19.3 H, Plt Count 210, MPV 12.3, Immature Gran % (Auto) 0.40, Immature Gran # (Auto) 0.05 H, Neutrophils % 58.1, Lymphocytes % 31.8, Monocytes % 6.0, Eosinophils % 3.3 H, Basophils % 0.4, Nucleated RBC % 0.1, Neutrophils # 6.8 H, Lymphocytes # 3.74 H, Monocytes # 0.7, Eosinophils # 0.4, Absolute Basophils 0.1 12/30/19 14:25: Urine Color Yellow, Urine Appearance Clear, Urine pH 7.0, Ur Specific Mcfaddin 1.010, Urine Protein Negative, Urine Glucose (UA) Negative, Urine Ketones Negative, Urine Blood 50 H, Urine Nitrate Negative, Urine Bilirubin Negative, Urine Urobilinogen Normal, Ur Leukocyte Esterase Negative, Urine RBC 5-10 H, Urine WBC 0-5, Ur Epithelial Cells Trace, Amorphous Sediment Few - 1+, Urine Bacteria 3+ H, Urine Comment Culture ordered L 12/30/19 18:48: WBC 11.1 H, RBC 2.79 L, Hgb 9.0 L, Hct 28.3 L, MCV 101.4 H, MCH 32.3 H, MCHC 31.8 L, RDW 21.1 H, Plt Count 218, MPV 12.1 12/30/19 21:15: Stool Occult Blood Negative 12/31/19 07:00: WBC 13.5 H D, RBC 2.42 L, Hgb 8.0 L, Hct 24.9 L, MCV 102.9 H, MCH 33.1 H, MCHC 32.1, RDW 22.1 H, Plt Count 221, MPV 12.2, Immature Gran % (Auto) 0.40, Immature Gran # (Auto) 0.06 H, Neutrophils % 55.3, Lymphocytes % 36.3, Monocytes % 6.9, Eosinophils % 0.8, Basophils % 0.3, Nucleated RBC % 0.1, Neutrophils # 7.4 H, Lymphocytes # 4.88 H, Monocytes # 0.9, Eosinophils # 0.1, Absolute Basophils 0.0 12/31/19 07:00: Sodium 138, Plasma Sodium 138, Potassium 5.3 H, Chloride 107 H, Carbon Dioxide 23.8 L, Anion Gap 12.5, BUN 32 H, Creatinine 1.94 H, Est GFR (Non-Af Amer) 32 L, BUN/Creatinine Ratio 16.5, Random Glucose 106 D, Calcium 7.9, Calcium Adj for Albumin 9.7, Total Bilirubin 0.4, AST 50 H, ALT 13 L, Alkaline Phosphatase 93, Total Protein 6.5, Albumin 1.4 L 12/31/19 10:17: Stool Occult Blood Negative 12/31/19 11:25: WBC 13.4 H, RBC 2.60 L, Hgb 8.6 L, Hct 25.9 L, MCV 99.6, MCH 33.1 H, MCHC 33.2, RDW 21.6 H, Plt Count 221, MPV 12.4 12/31/19 11:25: Sodium 136, Plasma Sodium 136, Potassium 5.8 H, Chloride 106, Carbon Dioxide 22.5 L, Anion Gap 13.3, BUN 31 H, Creatinine 1.92 H, Est GFR (Non-Af Amer) 33 L, BUN/Creatinine Ratio 16.1, Random Glucose 118 H, Calcium 8.3 01/01/20 07:11: WBC 11.4 H, RBC 2.34 L, Hgb 7.7 L*, Hct 24.6 L, MCV 105.1 H, MCH 32.9 H, MCHC 31.3 L, RDW 21.4 H, Plt Count 238, MPV 11.2, Immature Gran % (Auto) 0.30, Immature Gran # (Auto) 0.03, Neutrophils % 49.9, Lymphocytes % 42.1, Monocytes % 5.9, Eosinophils % 1.4, Basophils % 0.4, Nucleated RBC % 0.0, Neutrophils # 5.7, Lymphocytes # 4.78 H, Monocytes # 0.7, Eosinophils # 0.2, Absolute Basophils 0.0 01/01/20 07:11: Sodium 140, Plasma Sodium 140, Potassium 4.8 H, Chloride 109 H, Carbon Dioxide 24.2, Anion Gap 11.6, BUN 29 H, Creatinine 1.97 H, Est GFR (Non- Af Amer) 32 L, BUN/Creatinine Ratio 14.7, Random Glucose 109, Calcium 8.1 01/02/20 06:45: WBC 12.6 H, RBC 2.31 L, Hgb 7.6 L*, Hct 24.9 L, MCV 107.8 H, MCH 32.9 H, MCHC 30.5 L, RDW 21.2 H, Plt Count 250, MPV 11.6, Immature Gran % (Auto) 0.30, Immature Gran # (Auto) 0.04 H, Neutrophils % 54.4, Lymphocytes % 37.0, Monocytes % 6.2, Eosinophils % 1.8, Basophils % 0.3, Nucleated RBC % 0.0, Neutrophils # 6.8 H, Lymphocytes # 4.64 H, Monocytes # 0.8, Eosinophils # 0.2, Absolute Basophils 0.0 01/02/20 06:45: Sodium 143 H, Plasma Sodium 143 H, Potassium 4.8 H, Chloride 110 H, Carbon Dioxide 24.6, Anion Gap 13.2, BUN 30 H, Creatinine 1.89 H, Est GFR (Non-Af Amer) 33 L, BUN/Creatinine Ratio 15.9, Random Glucose 119 H, Calcium 7.9 Discharge Location: [facility] Disposition: Intermediate Care Facility ICF Condition: Stable Level of Care: ICF Discharge Activity: Other - bed/chair as tolerated. keep her off pressure sore. Discharge Diet: NPO - PEG FEEDS: Jevity 1.2 continuous at 55 ml/hr with 200 ml water flushes QID. Referrals: Duarte Metcalf MD [Primary Care Provider] - Additional Patient Instructions (free text): To [facility] at discharge, ICF level. Please call and fax discharge orders to them. CBC, BMP 1 WEEK Aquacel Ag to the open areas, covered with a mepilex border. change daily, and PRN Prescriptions (Any new or edited meds): Lorazepam [Ativan Intensol] 0.5 mg PO QID PRN #7.5 ml PRN Reason: restlessness Transmission Status: Received by [facility] Diltiazem HCl [Cardizem Cd] 120 mg PO Q24H #30 cap.sr.24h Transmission Status: Received by [facility] Folic Acid 1 mg PEG DAILY #30 tab Transmission Status: Received by [facility] Insulin Glargine,Hum.rec.anlog [Lantus] 15 units SC Q12H #14 vial Transmission Status: Received by [facility] Omeprazole [Prilosec] 40 mg PEG Q12H #600 ml Transmission Status: Received by [facility] Sodium Polystyrene Sulfon/Sorb [Sodium Polystyrene Sulfonate] 15 g PEG TID #1800 oral.susp Transmission Status: Received by [facility] Levothyroxine Sodium [Synthroid] 50 mcg PEG DAILY@0700 #30 tab Transmission Status: Received by [facility] Vancomycin HCl [Vancomycin] 125 mg PO Q8H 3 Days #27 ml Transmission Status: Received by [facility] Cyanocobalamin [Vitamin B-12] 1,000 mcg PEG DAILY #30 tab Transmission Status: Received by [facility] Complete Home Medications List: Complete Home Medication List: Cyanocobalamin [Vitamin B-12] 1,000 mcg PEG DAILY #30 tab 01/02/20 Diltiazem HCl [Cardizem Cd] 120 mg PO Q24H #30 cap.sr.24h 01/02/20 Folic Acid 1 mg PEG DAILY #30 tab 01/02/20 Insulin Glargine,Hum.rec.anlog [Lantus] 15 units SC Q12H #14 vial 01/02/20 Levothyroxine Sodium [Synthroid] 50 mcg PEG DAILY@0700 #30 tab 01/02/20 Lorazepam [Ativan Intensol] 0.5 mg PO QID PRN #7.5 ml 01/02/20 Omeprazole [Prilosec] 40 mg PEG Q12H #600 ml 01/02/20 Sodium Polystyrene Sulfon/Sorb [Sodium Polystyrene Sulfonate] 15 g PEG TID #1800 oral.susp 01/02/20 Vancomycin HCl [Vancomycin] 125 mg PO Q8H 3 Days #27 ml 01/02/20 Amb Orders for Discharge: Basic Metabolic Panel Time Frame: 1 Week, Facility: [facility], Location: Laboratory CBC Time Frame: 1 Week, Facility: [facility], Location: Laboratory Forms: Patient Portal Registration
[2020-01-02] MEDS: SACCHAROMYCES BOULARDII 250 MG CAPSULE PEG SCH (10:01)
[2020-01-02] MEDS: FOLIC ACID 1 MG TABLET PEG SCH (10:02)
[2020-01-02] MEDS: DILTIAZEM HCL 120 MG CAP.SR.24H PO SCH (10:02)
[2020-01-02] MEDS: SODIUM POLYSTYRENE SULFON/SORB 15 G/60 ML ORAL.SUSP PEG SCH (10:02)
[2020-01-02] MEDS: CYANOCOBALAMIN 1,000 MCG TABLET PEG SCH (10:02)
[2020-01-02] MEDS: OMEPRAZOLE 2 MG/ML BTL PEG SCH (10:32)
[2020-01-02 12:04] VITALS: BP 142/36
== END 2020-01-02 12:45 | DRG 812 ==
LOC: MS 23:18 → ER 23:18 → MS 12-30 02:30
PROVIDERS: ADMIT Family Medicine; ATTEND Allergy & Immunology
DX: Z22.322 Carrier or suspected carrier of Methicillin resistant Staphylococcus aureus; Z11.59 Encounter for screening for other viral diseases; Z86.718 Personal history of other venous thrombosis and embolism; T45.515A Adverse effect of anticoagulants, initial encounter; I48.91 Unspecified atrial fibrillation; Z86.73 Personal history of transient ischemic attack (TIA), and cerebral infarction without residual deficits; T80.89XA Other complications following infusion, transfusion and therapeutic injection, initial encounter; Z79.4 Long term (current) use of insulin; N18.30 Chronic kidney disease, stage 3 unspecified; E66.01 Morbid (severe) obesity due to excess calories; E11.22 Type 2 diabetes mellitus with diabetic chronic kidney disease; Z74.01 Bed confinement status; L89.152 Pressure ulcer of sacral region, stage 2; E87.5 Hyperkalemia; Z93.1 Gastrostomy status; Z86.711 Personal history of pulmonary embolism; S40.021A Contusion of right upper arm, initial encounter; Z79.01 Long term (current) use of anticoagulants; I12.9 Hypertensive chronic kidney disease with stage 1 through stage 4 chronic kidney disease, or unspecified chronic kidney disease; F01.50 Vascular dementia, unspecified severity, without behavioral disturbance, psychotic disturbance, mood disturbance, and anxiety; D64.9 Anemia, unspecified; E86.0 Dehydration; Z68.41 Body mass index [BMI] 40.0-44.9, adult